=== PATIENT | male | born 1950 | race Caucasian/White ===

== ENCOUNTER 2016-07-20 05:07 | Observation (INO) | payer MEDICARE, OTHER ==
[~2016-07-20] VITALS: Ht 185.4 cm; Wt 82.3 kg
[~2016-07-20 05:07] MED LIST: /MOXI40TA OR; /MOXI40TA PO; ADVA115A INH; ADVAIR INH; ALB2.5NEB INH; ALBU17IN INH; ALBUTEROL NEBS INH; ASPI1TAB PEG; ASPI81TA83 PEG; AUGM500T34 PO; AUGM875T27 PEG; AUGM875T27 PO; BACT800T5 PEG; BACT800T5 PO; CEFT500T PEG; CEFT500T3 PO; CIPR500T89 PEG; CIPR750T2 PEG; COLA100C2 PO; COLA50CA3 PO; DELTASONE PO; FLAG500T GT; FLUC10TA OR; FLUC10TA PEG; JEVITY 1.5 CAL PEG; LEVA500T PEG; LEVA500T PO; LEVO500T PEG; LEVO500T PO; MEDR4PAK PO; O2; OXYGEN; PRED10PA PO; PRED10TA PEG; PRED10TA2 OR; PRED10TA2 PEG; PRED10TA2 PO; PRED20TAB PO; PRENATAL VITAMIN PEG; PRENTAB44 PEG; RANI15TA PEG; RANI75TA2 PEG; RANI75TA9 PEG; TWOCLIQ PEG; TYLE325T5 PEG; TYLE325T5 PO; VENTAER INH; VENTOLIN NEB NEB; VITA100T18 PEG; VITA100T92 PEG; prednisone
[2016-07-20] MEDS ORDERED: IPRATROPIUM 0.5MG/ALBUTEROL 2.5MG INH SOL UD 3ML (DUONEB)(J7620) As Ordered ONE (05:39)
[2016-07-20 06:19] LABS: ABG BASE EXCESS 4.4 (-2.0-2.0); ABG DEVICE NASAL CANN; ABG HCO3 30.5 MEQ/L (22.0-26.0); ABG PARTIAL PRESSURE CO2 50.7 mmHg (35.0-45.0); ABG PARTIAL PRESSURE O2 59.3 mmHg (75.0-100.0); ABG STANDARD HCO3 28.3 MEQ/L (22.0-26.0); ABG pH (ARTERIAL) 7.397 UNITS (7.350-7.450)
[2016-07-20 06:31] LABS: ANION GAP 8 MEQ/L (8-16); BLOOD UREA NITROGEN 22 MG/DL (7-18); CALCIUM LEVEL 9.1 MG/DL (8.8-10.2); CARBON DIOXIDE LEVEL 31 MEQ/L (21-32); CHLORIDE LEVEL 99 MEQ/L (98-107); CREATININE FOR GFR 0.99 MG/DL (0.70-1.30); GLOMERULAR FILTRATION RATE > 60.0 (>49); GLUCOSE, FASTING 219 MG/DL (80-110); POTASSIUM SERUM 4.3 MEQ/L (3.5-5.1); SODIUM LEVEL 138 MEQ/L (136-145)
[2016-07-20 06:32] LABS: MEAN CORPUSCULAR HEMOGLOBIN 34.8 pg (27.0-33.0); MEAN CORPUSCULAR HGB CONC 33.1 g/dl (32.0-36.5); MEAN CORPUSCULAR VOLUME 105.1 fl (80.0-96.0); PLATELET COUNT, AUTOMATED 213 k/mm3 (150-450); RED CELL DISTRIBUTION WIDTH 13.3 % (11.5-14.5); WHITE BLOOD COUNT 9.2 K/mm3 (4.0-10.0)
[2016-07-20 07:23] LABS: EOSINOPHILS 1 % (0-5)
[2016-07-20] MEDS ORDERED: LevoFLOXacin/DEXTROSE 750 MG/150 ML BAG (J1956) As Ordered ONE (08:33)
[2016-07-20] MEDS ORDERED: PRED10TA PEG (08:59)
--- NOTE | 2016-07-20 09:14 | REP ---
Chest x-ray: Two views. History: Shortness of breath. Comparison chest x-ray April 02, 2016. Findings: The lungs are hyperinflated. This is consistent with COPD. Heart is at the upper range of normal in size. There are clips in the upper abdomen. There is an infiltrate in the right lower lobe again noted. This is a little less prominent but otherwise similar to the findings on April 02, 2016. Question chronic persistent infiltrate versus recurrent pneumonia. There is a granulomatous calcification in the right base. There is a questionable nodule in the right mid lung zone. EKG monitoring electrodes and oxygen delivery tubing are seen. There are degenerative changes in the thoracic spine again noted. Impression: Chronic versus recurrent infiltrate right base. Questionable nodule right mid lung zone. Consider repeat CT scanning. CT scanning was most recently performed April 03, 2016. This showed bibasilar bronchiectasis and pulmonary opacification in both lower lobes. Signed by Jeff Gillespie MD 07/20/2016 10:23 A
--- NOTE | 2016-07-20 09:28 | ECGEPIP ---
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
--- NOTE | 2016-07-20 09:53 | REP ---
CT study of the chest without contrast: History: Cough. Comparison CT study is from April 03, 2016. Comparison is made with today's chest x-ray showing possible nodule in the right mid lung zone and recurrent versus persistent infiltrate in the right lower lobe. Findings: Overall, there is evidence of hyperinflation with flattening of the hemidiaphragms as before. The patient has a gastrostomy feeding tube. There is peripheral calcification pattern throughout the gallbladder consistent with porcelain gallbladder again noted unchanged. The upper abdominal structures are otherwise unremarkable. There is no visible pulmonary parenchymal mass lesion. No nodule is seen in the right middle lobe. No new infiltrate is noted. There is chronic-appearing bilateral lower lobe bronchiectasis. There is nearly complete collapse of the left lower lobe with air remaining in bronchiectatic branches. This is unchanged from the prior study. There are similar less prominent or less advanced changes in the right lower lobe with extensive bronchiectasis, some volume loss and retained endobronchial secretions. The parenchymal opacity pattern seen previously is similar perhaps slightly less prominent. No progressive change is seen. There is left apical and to a lesser extent right apical pleuroparenchymal scarring and emphysematous changes are seen. Impression: Chronic bronchiectasis and atelectatic changes in the lower lobes bilaterally, left greater than right. Evidence of COPD and overall hyperinflation. No new infiltrate seen. Signed by Jeff Gillespie MD 07/20/2016 10:23 A
[2016-07-20] MEDS ORDERED: ACETAMINOPHEN TAB 650MG DOSE (2X325MG) PEG PRN (12:15)
[2016-07-20] MEDS ORDERED: ONDANSETRON 4MG/2ML VIAL (J2405) IV PRN (12:15)
[2016-07-20 13:45] VITALS: BP 121/67
[2016-07-20] MEDS ORDERED: ALBUTEROL SULFATE 2.5 MG/0.5 ML INH NEB SOLN As Ordered ONE (15:02)
[2016-07-20] MEDS: ALBUTEROL SULFATE 2.5 MG/0.5 ML INH NEB SOLN NEB SCH ×2 (15:05→20:00)
[2016-07-20 16:00] VITALS: BP 113/69
--- NOTE | 2016-07-20 16:55 | EDDOCDS ---
Nurse's Notes [facility] Name: Jadon Grove Age: 66 yrs Sex: Male : 1950 Arrival Date: 07/20/2016 Time: 05:07 Bed Admit Hold Private MD: Diagnosis: Chronic obstructive pulmonary disease with (acute) exacerbation Presentation: 07/20 05:11 Presenting complaint: Patient states: difficulty breathing chills lower and upper cz abdominal pain for past week. Adult Sepsis Screening: The patient does not have new or worsening altered mentation. Patient's respiratory rate is less than 22. Systolic blood pressure is greater than 100. Patient has a qSOFA score of 0- Negative Sepsis Screen. Suicide/Homicide risk assessment- the patient denies having any suicidal and/or homicidal ideations and does not present with any other emotional, behavioral or mental health complaints. 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 Transition of care: patient was not received from another setting of care. 05:11 Acuity: LORIN Level 3 cz 05:11 Method Of Arrival: Wheelchair cz Triage Assessment: 05:16 General: Appears in no apparent distress. Pain: Location: back and abdomen. cz 08:05 Respiratory: Onset: The symptoms/episode began/occurred 1 week ago. jc4 Historical: - Allergies: Flagyl (Rash); - Home Meds: 1. Advair Diskus 115/21 mcg/dose Inhl dsdv 1 puff 2 times per day 2. albuterol sulfate 2.5 mg/0.5 mL Inhl nebu 3 times per day 3. albuterol sulfate 90 mcg/actuation Inhl aepb 2 puffs every 4 hours As needed 4. aspirin 81 mg Oral tab 1 tab once daily 5. Oxygen 3LNC 6. Vitamin Oral tab 1 tab once daily 7. ranitidine HCl 75 mg Oral tab 1 tab once daily 8. rotates Cipro and Augmentin every month 9. thiamine HCl 100 mg Oral tab 150 mg daily - PMHx: Cancer Right Tonsil; COPD; Pneumonia; - PSHx: oral surgery; right foot surgery; Cataract Surgery- Bilateral; - Social history: Smoking status: Patient states former smoker of tobacco. No barriers to communication noted, The patient speaks fluent Kazakh, Speaks appropriately for age. - Family history: No immediate family members are acutely ill. - : The pt / caregiver states he / she is not on anticoagulants. Home medication list is obtained from [employer] import data. - Exposure Risk Screening:: None identified. Screenin:02 Screening information is obtained from the patient. Fall risk: No risks identified. jc4 Assistance ADL's: requires no assistance with activities of daily living. Abuse/DV Screen: The patient / caregiver reports he/she is: not in a situation that causes fear, pain or injury. Nutritional screening: On TwoCal HN 1 can 4 times daily via Christian button. Advance Directives: Currently, there is a health care proxy, Caroline Grove, . There is no active DNR order. There is a living will, but a copy is not available at this time. There is an active Power of Fishery Biologist, Caroline Grove, . home support is adequate. Assessment: 05:20 General: Appears distressed, Behavior is appropriate for age, cooperative, pleasant. kmg1 Pain: Denies pain. Neurological: Level of Consciousness is awake, alert. EENT: No deficits noted. Cardiovascular: Rhythm is sinus tachycardia No ectopy. Respiratory: Airway is patent Respiratory effort is labored, Respiratory pattern is regular, symmetrical, Breath sounds are coarse Breath sounds with crackles Breath sounds with rhonchi. GI: No deficits noted. 06:17 General: Appears in no apparent distress, comfortable, Behavior is appropriate for age, kmg1 cooperative, pleasant. Pain: Denies pain. Respiratory: pt now receiving nebs. 08:09 General: Appears in no apparent distress, comfortable, Behavior is cooperative, jc4 pleasant. Pain: Denies pain. Neurological: Level of Consciousness is awake, alert, Oriented to person, place, time. Cardiovascular: Rhythm is sinus tachycardia No ectopy. Respiratory: Airway is patent Respiratory effort is even, unlabored, Respiratory pattern is regular, symmetrical, maintained on 4 liters nasal canula Breath sounds with rhonchi bilaterally. Respiratory: Reports that breathing is improved since time of arrival. GI: Abdomen is non- distended other Christian button in place to left upper abdomen Bowel sounds present X 4 quads. Derm: Skin is pink, warm & dry. 09:44 General: Pt resting on stretcher. No distress noted at this time. Color pink, skin warm jc4 and dry. Respirations easy and full. Maintained on 4 liters nasal canula. Warm blankets given. IV antibiotics infusing well, site clear. at bedside. 11:00 General: Dr. Moe in to examine patient. jc4 12:00 General: Pt resting on stretcher. No distress noted at this time. at bedside. jc4 Denies complaint at this time. 12:48 General: Pt sitting up on stretcher, watching television. jc4 13:35 General: Appears in no apparent distress, Behavior is cooperative, pleasant. Pain: jc4 Denies pain. Neurological: Level of Consciousness is awake, alert, Oriented to person, place, time. Respiratory: Airway is patent Respiratory effort is even, unlabored, Respiratory pattern is regular, symmetrical, maintained on 4 liters nasal canula. Derm: Skin is pink, warm & dry. Vital Signs: 05:16 BP 123 / 68; Pulse 115; Resp 20; Temp 97.6; Pulse Ox 72% on 3 lpm NC; Weight 73.48 kg; cz Height 6 ft. 1 in. (185.42 cm); 05:53 BP 132 / 76 (auto/); jc4 06:08 BP 121 / 71 (auto/); jc4 06:23 Pulse 102 MON; Pulse Ox 93% ; jc4 06:23 BP 117 / 68 (auto/); jc4 06:36 Pulse 102 MON; Pulse Ox 92% ; jc4 06:38 BP 110 / 59 (auto/); jc4 06:53 BP 137 / 71 (auto/); jc4 06:53 Pulse 104 MON; Pulse Ox 95% ; jc4 07:04 Pulse 110 MON; Pulse Ox 92% ; jc4 07:08 BP 126 / 70 (auto/); jc4 07:23 BP 117 / 59 (auto/); jc4 07:38 BP 108 / 60 (auto/); jc4 07:38 Pulse 102 MON; Pulse Ox 92% ; jc4 07:52 Pulse 98 MON; Pulse Ox 92% ; jc4 07:53 BP 119 / 66 (auto/); jc4 08:01 BP 119 / 66; Pulse 98; Resp 22; Temp 98.8(TE); Pulse Ox 93% on 4 lpm NC; Pain 0/10; jc4 08:05 Pulse 98 MON; Pulse Ox 92% ; jc4 08:08 BP 132 / 68 (auto/); jc4 08:23 BP 126 / 69 (auto/); jc4 08:24 Pulse 94 MON; Pulse Ox 91% ; jc4 08:38 BP 123 / 67 (auto/); jc4 08:38 Pulse 94 MON; Pulse Ox 93% ; jc4 08:53 BP 123 / 68 (auto/); jc4 08:53 Pulse 96 MON; Pulse Ox 91% ; jc4 09:08 BP 105 / 56 (auto/); jc4 09:09 Pulse 94 MON; Pulse Ox 94% ; jc4 09:22 Pulse 96 MON; Pulse Ox 95% ; jc4 09:23 BP 124 / 66 (auto/); jc4 09:38 BP 111 / 59 (auto/); jc4 09:38 Pulse 94 MON; Pulse Ox 94% ; jc4 09:57 BP 121 / 63 (auto/); jc4 09:57 Pulse 98 MON; Pulse Ox 93% ; jc4 10:08 BP 117 / 60 (auto/); jc4 10:08 Pulse 92 MON; Pulse Ox 94% ; jc4 10:21 Pulse 90 MON; Pulse Ox 94% ; jc4 10:23 BP 113 / 59 (auto/); jc4 10:38 BP 108 / 66 (auto/); jc4 10:38 Pulse 88 MON; Pulse Ox 92% ; jc4 10:53 BP 133 / 59 (auto/); jc4 10:53 Pulse 88 MON; Pulse Ox 94% ; jc4 11:08 BP 122 / 64 (auto/); jc4 11:08 Pulse 90 MON; Pulse Ox 92% ; jc4 11:21 Pulse 86 MON; Pulse Ox 92% ; jc4 11:23 BP 107 / 60 (auto/); jc4 11:37 Pulse 86 MON; Pulse Ox 92% ; jc4 11:38 BP 107 / 63 (auto/); jc4 11:53 BP 116 / 66 (auto/); jc4 11:53 Pulse 88 MON; Pulse Ox 92% ; jc4 12:07 Pulse 86 MON; Pulse Ox 93% ; jc4 12:08 BP 118 / 67 (auto/); jc4 12:11 Pulse 86 MON; Pulse Ox 93% ; jc4 12:12 BP 108 / 65 (auto/); jc4 12:14 BP 108 / 65; Pulse 88; Resp 22; Temp 98.7(TE); Pulse Ox 93% on 4 lpm NC; Pain 0/10; sew 12:23 Pulse 88 MON; Pulse Ox 92% ; jc4 12:23 BP 113 / 67 (auto/); jc4 12:38 BP 115 / 69 (auto/); jc4 12:38 Pulse 88 MON; Pulse Ox 92% ; jc4 12:52 Pulse 88 MON; Pulse Ox 93% ; jc4 12:53 BP 124 / 68 (auto/); jc4 13:08 BP 126 / 67 (auto/); jc4 13:09 Pulse 88 MON; Pulse Ox 94% ; jc4 05:16 Body Mass Index 21.37 (73.48 kg, 185.42 cm) cz Vitals: 05:16 Log In Time: July 20, 2016 at 05:07. cz 05:20 Refer to monitor trend for complete vital signs trends. [facility] ED Course: 05:09 Patient visited by Chalree Mckeon. gjb 05:09 Patient moved to Waiting gjb 05:13 Triage Initiated cz 05:18 Patient moved to 14 cz 05:20 The patient / caregiver is instructed regarding the plan of care and ED course. Cardiac kmg1 monitor on. Pulse ox on. NIBP on. 05:20 O2 via nasal cannula \T\ 4L/min. kmg1 05:27 Tevin Sanderson DO is Attending Physician. mm11 05:27 Patient visited by Tevin Sanderson DO. mm11 05:32 Patient visited by Tevin Sanderson DO. mm11 05:44 Pt greeted and oriented to ED. Patient advised of names of staff involved in care, [facility] location of call smith, wait times and NPO status. Accompanied by Caregiver, Patient has correct armband on for positive identification. Placed in gown. Bed in low position. Call light in reach. Side rails up X2. 05:44 EKG done. (by ED staff). Reviewed by Tevin Sanderson DO. jmv 05:46 Patient visited by Nirav Luu PCA. jmv 06:01 -Blood Culture Sent. kmg1 06:01 B-Type Natiuretic Peptide Sent. kmg1 06:01 Basic Metabolic Profile Sent. kmg1 06:01 CBC with Diff Sent. kmg1 06:02 Patient visited by Rika Hyde RN. kmg1 06:02 Inserted saline lock: 20 gauge in right forearm. Labs drawn. (by ED staff). Sent per km order to lab. 06:18 -Arterial Blood Gas Sent. nk1 06:20 Patient visited by Rika Hyde RN. kmg1 06:28 BLOOD CULTURES Sent. kmg1 06:45 DIFFERENTIAL NO CHARGE Sent. kmg1 07:24 Patient visited by Lavern De La Rosa PCA. ct3 08:09 Patient visited by Nadira Nova, LISSA. jc4 08:30 Attending Physician role handed off by Tevin Sanderson DO ml 08:30 Mukund Iglesias MD is Attending Physician. ml 08:52 Patient visited by Nadira Nova RN. jc4 09:17 Chest, 2 View (pa\E\lat) Returned. EDMS 09:29 [facility] Payment Agreement was scanned into [employer] and attached to record. lg 09:43 EKG-ADULT Returned. EDMS 09:44 -Influenza A&B Rapid Antigen - Nose Sent. jc4 09:46 Patient visited by Nadira Nova RN. jc4 09:46 Edna Moe is Hospitalizing Provider. ml 10:12 CT Chest Without Contrast Returned. EDMS 10:36 T-Sheet-- Draft Copy was scanned into [employer] and attached to record. seh 12:15 Patient visited by Miranda Negrete. sew 12:47 Patient visited by Nadira Nova RN. jc4 13:30 Patient moved to Admit Hold kpj 13:33 Patient moved to 21 kpj 13:33 Patient moved to Admit Hold kpj 16:52 No procedures done that require assistance. pml Administered Medications: 06:18 Drug: Albuterol-Ipratropium 1 neb [ipratropium-albuterol 0.5 mg-3 mg(2.5 mg base)/3 mL nk1 nebulization soln (1 neb)] Route: Nebulizer; 06:45 Drug: Albuterol-Ipratropium 1 neb [ipratropium-albuterol 0.5 mg-3 mg(2.5 mg base)/3 mL km nebulization soln (1 neb)] Route: Nebulizer; 06:46 Follow up: Response: Nebulizer completed nk1 06:52 Drug: Albuterol-Ipratropium 1 neb [ipratropium-albuterol 0.5 mg-3 mg(2.5 mg base)/3 mL lf2 nebulization soln (1 neb)] Route: Nebulizer; 08:55 Drug: levofloxacin 750 mg [levofloxacin 750 mg/150 mL in 5 % dextrose intravenous jc4 piggyback] Route: IVPB; Infused Over: 90 mins; Site: right wrist; 10:23 Follow up: IV Status: Completed infusion; IV Intake: 150ml jc4 Intake: 10:23 IV: 150.00ml; Total: 150.00ml. jc4 RT: 06:18 ABG's drawn from left radial artery pressure held for 5 minutes no bleeding noted nk1 pressure bandage applied specimen sent pt. tolerated well. Initial Med Neb Given as ordered Patient was instructed and evaluated on procedure Patient tolerated procedure well without adverse effect. Respiratory: Respiratory effort is unlabored, Respiratory pattern is regular Breath sounds are diminished bilaterally. 06:18 Respiratory: Breath sounds are coarse bilaterally. Breath sounds with rhonchi nk1 bilaterally. Breath sounds are diminished. 06:46 Subsequent Med Neb Given as ordered Patient tolerated procedure well without adverse nk1 effect. 06:47 Respiratory: Breath sounds are coarse Breath sounds with rhonchi bilaterally. nk1 06:52 Subsequent Med Neb Given as ordered Patient tolerated procedure well without adverse lf2 effect. Respiratory: Breath sounds are coarse bilaterally. Breath sounds are diminished bilaterally. Order Results: Lab Order: -Arterial Blood Gas; SPEC'M 07/20/16 06:09 Test: ABG pH (ARTERIAL); Value: 7.397; Range: 7.350-7.450; Units: UNITS; Status: F Test: ABG PARTIAL PRESSURE CO2; Value: 50.7; Range: 35.0-45.0; Abnormal: Above high normal; Units: mmHg; Status: F Test: ABG PARTIAL PRESSURE O2; Value: 59.3; Range: 75.0-100.0; Abnormal: Below low normal; Units: mmHg; Status: F Test: ABG TOTAL CO2; Value: 32.0; Range: 23.0-31.0; Abnormal: Above high normal; Units: MEQ/L; Status: F Test: ABG HCO3; Value: 30.5; Range: 22.0-26.0; Abnormal: Above high normal; Units: MEQ/L; Status: F Test: ABG BASE EXCESS; Value: 4.4; Range: -2.0-2.0; Abnormal: Above high normal; Status: F Test: ABG STANDARD HCO3; Value: 28.3; Range: 22.0-26.0; Abnormal: Above high normal; Units: MEQ/L; Status: F Test: ABG O2 SATURATION; Value: 90.7; Range: 95.0-99.0; Abnormal: Below low normal; Units: %; Status: F Test: ABG DEVICE; Value: NASAL JUDSON; Status: F Lab Order: B-Type Natiuretic Peptide; SPEC'07/20/16 06:00 Test: BRAIN NATRIURETIC PEPTIDE; Value: 19.6; Range: <100; Units: PG/ML; Status: F Lab Order: Basic Metabolic Profile; SPEC07/20/16 06:00 Test: GLUCOSE, FASTING; Value: 219; Range: 80-110; Abnormal: Above high normal; Units: MG/DL; Status: F Test: BLOOD UREA NITROGEN; Value: 22; Range: 7-18; Abnormal: Above high normal; Units: MG/DL; Status: F Test: CREATININE FOR GFR; Value: 0.99; Range: 0.70-1.30; Units: MG/DL; Status: F Test: GLOMERULAR FILTRATION RATE; Value: > 60.0; Range: >49; Status: F Test: SODIUM LEVEL; Value: 138; Range: 136-145; Units: MEQ/L; Status: F Test: POTASSIUM SERUM; Value: 4.3; Range: 3.5-5.1; Units: MEQ/L; Status: F Test: CHLORIDE LEVEL; Value: 99; Range: 98-107; Units: MEQ/L; Status: F Test: CARBON DIOXIDE LEVEL; Value: 31; Range: 21-32; Units: MEQ/L; Status: F Test: ANION GAP; Value: 8; Range: 8-16; Units: MEQ/L; Status: F Test: CALCIUM LEVEL; Value: 9.1; Range: 8.8-10.2; Units: MG/DL; Status: F Test Note: ; Units are mL/min/1.73 m2 Chronic Kidney Disease Staging per NKF: Stage I & II GFR >=60 Normal to Mildly Decreased Stage III GFR 30-59 Moderately Decreased Stage IV GFR 15-29 Severely Decreased Stage V GFR <15 Very Little GFR Left ESRD GFR <15 on BOOKKEEPER RECEPTIONIST Lab Order: CBC with Diff; SPEC'M 07/20/16 06:00 Test: WHITE BLOOD COUNT; Value: 9.2; Range: 4.0-10.0; Units: K/mm3; Status: F Test: RED BLOOD COUNT; Value: 4.19; Range: 4.30-6.10; Abnormal: Below low normal; Units: M/mm3; Status: F Test: HEMOGLOBIN; Value: 14.6; Range: 14.0-18.0; Units: g/dl; Status: F Test: HEMATOCRIT; Value: 44.1; Range: 42.0-52.0; Units: %; Status: F Test: MEAN CORPUSCULAR VOLUME; Value: 105.1; Range: 80.0-96.0; Abnormal: Above high normal; Units: fl; Status: F Test: MEAN CORPUSCULAR HEMOGLOBIN; Value: 34.8; Range: 27.0-33.0; Abnormal: Above high normal; Units: pg; Status: F Test: MEAN CORPUSCULAR HGB CONC; Value: 33.1; Range: 32.0-36.5; Units: g/dl; Status: F Test: RED CELL DISTRIBUTION WIDTH; Value: 13.3; Range: 11.5-14.5; Units: %; Status: F Test: PLATELET COUNT, AUTOMATED; Value: 213; Range: 150-450; Units: k/mm3; Status: F Test: NEUTROPHILS; Value: 91; Range: 35-75; Abnormal: Above high normal; Units: %; Status: F Test: LYMPHOCYTES; Value: 4; Range: 16-52; Abnormal: Below low normal; Units: %; Status: F Test: MONOCYTES; Value: 4; Range: 0-8; Units: %; Status: F Test: EOSINOPHILS; Value: 1; Range: 0-5; Units: %; Status: F Test: MACROCYTOSIS; Value: 1+; Status: F Lab Order: PLATELET ESTIMATE; SPEC'M 07/20/16 06:00 Test: PLATELET ESTIMATE; Value: NORMAL; Range: NORMAL; Status: F Lab Order: -Influenza A&B Rapid Antigen - Nose; SPEC'M 07/20/16 09:42 Test: INFLUENZA A RAPID SCR by ICA; Value: INFLUENZA A RESULTS NEGATIVE; Status: F Test: INFLUENZA A RAPID SCR by ICA; Value: Comments:; Status: F Test: INFLUENZA B RAPID SCR by ICA; Value: INFLUENZA B RESULTS NEGATIVE; Status: F Test Note: ; The Influenza test is a direct rapid immunoassay for the qualitative detection of Influenza viral antigen. Cell culture (Viral Culture) testing should be considered to confirm NEGATIVE results and to assist in detecting other viruses that can provide similar clinical symptoms. Please contact the lab within 24 hours ([phone]) if confirmatory testing is desired. Radiology Order: Chest, 2 View (pa\E\lat) Test: Chest, 2 View (pa\E\lat) REASON FOR EXAMINATION: Shortness of Breath; Chest x-ray: Two views.; ; History: Shortness of breath.; ; Comparison chest x-ray April 02, 2016.; ; Findings: The lungs are hyperinflated. This is consistent with COPD. Heart is; at the upper range of normal in size. There are clips in the upper abdomen.; There is an infiltrate in the right lower lobe again noted. This is a little; less prominent but otherwise similar to the findings on April 02, 2016.; Question chronic persistent infiltrate versus recurrent pneumonia. There is a; granulomatous calcification in the right base. There is a questionable nodule in; the right mid lung zone. EKG monitoring electrodes and oxygen delivery tubing; are seen. There are degenerative changes in the thoracic spine again noted.; ; Impression:; ; Chronic versus recurrent infiltrate right base. Questionable nodule right mid; lung zone. Consider repeat CT scanning. CT scanning was most recently performed; April 03, 2016. 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; : 1950 Requested By: TEVIN Gloria; Order Number: [id number] Ricky MD: Scott Earl; Measurements; Intervals [place]; Rate: 105 P: 81; [place]: 139 QRS: 66; QRSD: 79 T: 87; QT: 315; QTc: 417; Interpretive Statements; SINUS TACHYCARDIA WITH OCCASIONAL VENTRICULAR PREMATURE COMPLEXES; NONSPECIFIC ST T-WAVE ABNORMALITY; ; ; Electronically Signed On 07-20-2016 9:27:55 EST by Scott Earl; Radiology Order: CT Chest Without Contrast Test: CT Chest Without Contrast REASON FOR EXAMINATION: Cough;Shortness of Breath; CT study of the chest without contrast:; ; History: Cough.; ; Comparison CT study is from April 03, 2016. Comparison is made with today's; chest x-ray showing possible nodule in the right mid lung zone and recurrent; versus persistent infiltrate in the right lower lobe.; ; Findings: Overall, there is evidence of hyperinflation with flattening of the; hemidiaphragms as before. The patient has a gastrostomy feeding tube. There is; peripheral calcification pattern throughout the gallbladder consistent with; porcelain gallbladder again noted unchanged. The upper abdominal structures are; otherwise unremarkable.; ; There is no visible pulmonary parenchymal mass lesion. No nodule is seen in the; right middle lobe. No new infiltrate is noted. There is chronic-appearing; bilateral lower lobe bronchiectasis. There is nearly complete collapse of the; left lower lobe with air remaining in bronchiectatic branches. This is unchanged; from the prior study. There are similar less prominent or less advanced changes; in the right lower lobe with extensive bronchiectasis, some volume loss and; retained endobronchial secretions. The parenchymal opacity pattern seen; previously is similar perhaps slightly less prominent. No progressive change is; seen. There is left apical and to a lesser extent right apical pleuroparenchymal; scarring and emphysematous changes are seen.; ; Impression:; ; Chronic bronchiectasis and atelectatic changes in the lower lobes bilaterally,; left greater than right. Evidence of COPD and overall hyperinflation. No new; infiltrate seen.; ; ; Signed by; Jeff Gillespie MD 07/20/2016 10:23 A; Outcome: 09:47 Decision to Hospitalize by Provider. ml 13:46 Admission hand-off: Other: Report to Angeles Posey RN [place] nurse . jc4 16:52 Discharge Assessment: Patient awake, alert and oriented x 3. No cognitive and/or pml functional deficits noted. Patient verbalized understanding of disposition instructions. patient administered narcotics - no. The following High Risk Discharge criteria are identified: None. Admitted to Med/Surg accompanied by tech, via stretcher, with chart. Condition: good Condition: stable. CT Study completed. Property sent home with patient. 16:53 Patient left the ED. pml Signatures: Dispatcher [employer] EDNC Mukund Iglesias MD MD Rika Hyde, RN RN kmg1 Jessica Guthrie RN RN Evangelist Smith, LISSA RN cz Rowena Olivas, Reg Reg lg Nikole Strong,RT RT nk1 Tevin Sanderson, DO DO mm11 Nadira Nova RN RN jc4 Lavern De La Rosa, NEONATAL SURGEON NEONATAL SURGEON ct3 Liudmila Cabello RN RN pml Miranda Negrete Gabriela gjb Frederick, Lisa,RT RT lf2 Miranda Gutierrez Jose, NEONATAL SURGEON NEONATAL SURGEON jmv Corrections: (The following items were deleted from the chart) 08:14 05:16 Allergies: No known drug Allergies; cz jc4 16:53 16:52 No special radiology studies were completed pml pml MTDD
--- NOTE | 2016-07-20 16:55 | EDDOCDS ---
Physician Documentation [facility] Name: Jadon Grove Age: 66 yrs Sex: Male : 1950 Arrival Date: 07/20/2016 Time: 05:07 Bed Admit Hold Private MD: Disposition: 07/20/16 09:47 Hospitalization ordered by Edna Moe for Inpatient Admission. Preliminary diagnosis is Chronic obstructive pulmonary disease with (acute) exacerbation. - Bed requested for 4 [place]. - Status is Inpatient Admission. pml - Condition is Stable. - Problem is new. - Symptoms are unchanged. Historical: - Allergies: Flagyl (Rash); - Home Meds: 1. Advair Diskus 115/21 mcg/dose Inhl dsdv 1 puff 2 times per day 2. albuterol sulfate 2.5 mg/0.5 mL Inhl nebu 3 times per day 3. albuterol sulfate 90 mcg/actuation Inhl aepb 2 puffs every 4 hours As needed 4. aspirin 81 mg Oral tab 1 tab once daily 5. Oxygen 3LNC 6. Vitamin Oral tab 1 tab once daily 7. ranitidine HCl 75 mg Oral tab 1 tab once daily 8. rotates Cipro and Augmentin every month 9. thiamine HCl 100 mg Oral tab 150 mg daily - PMHx: Cancer Right Tonsil; COPD; Pneumonia; - PSHx: oral surgery; right foot surgery; Cataract Surgery- Bilateral; - Social history: Smoking status: Patient states former smoker of tobacco. No barriers to communication noted, The patient speaks fluent [place]ijani, Speaks appropriately for age. - Family history: No immediate family members are acutely ill. - : The pt / caregiver states he / she is not on anticoagulants. Home medication list is obtained from [employer] import data. - Exposure Risk Screening:: None identified. Vital Signs: 07/20 05:16 BP 123 / 68; Pulse 115; Resp 20; Temp 97.6; Pulse Ox 72% on 3 lpm NC; Weight 73.48 kg / cz 162 lbs; Height 6 ft. 1 in. (185.42 cm); 05:53 BP 132 / 76 (auto/); jc4 06:08 BP 121 / 71 (auto/); jc4 06:23 Pulse 102 MON; Pulse Ox 93% ; jc4 06:23 BP 117 / 68 (auto/); jc4 06:36 Pulse 102 MON; Pulse Ox 92% ; jc4 06:38 BP 110 / 59 (auto/); jc4 06:53 BP 137 / 71 (auto/); jc4 06:53 Pulse 104 MON; Pulse Ox 95% ; jc4 07:04 Pulse 110 MON; Pulse Ox 92% ; jc4 07:08 BP 126 / 70 (auto/); jc4 07:23 BP 117 / 59 (auto/); jc4 07:38 BP 108 / 60 (auto/); jc4 07:38 Pulse 102 MON; Pulse Ox 92% ; jc4 07:52 Pulse 98 MON; Pulse Ox 92% ; jc4 07:53 BP 119 / 66 (auto/); jc4 08:01 BP 119 / 66; Pulse 98; Resp 22; Temp 98.8(TE); Pulse Ox 93% on 4 lpm NC; Pain 0/10; jc4 08:05 Pulse 98 MON; Pulse Ox 92% ; jc4 08:08 BP 132 / 68 (auto/); jc4 08:23 BP 126 / 69 (auto/); jc4 08:24 Pulse 94 MON; Pulse Ox 91% ; jc4 08:38 BP 123 / 67 (auto/); jc4 08:38 Pulse 94 MON; Pulse Ox 93% ; jc4 08:53 BP 123 / 68 (auto/); jc4 08:53 Pulse 96 MON; Pulse Ox 91% ; jc4 09:08 BP 105 / 56 (auto/); jc4 09:09 Pulse 94 MON; Pulse Ox 94% ; jc4 09:22 Pulse 96 MON; Pulse Ox 95% ; jc4 09:23 BP 124 / 66 (auto/); jc4 09:38 BP 111 / 59 (auto/); jc4 09:38 Pulse 94 MON; Pulse Ox 94% ; jc4 09:57 BP 121 / 63 (auto/); jc4 09:57 Pulse 98 MON; Pulse Ox 93% ; jc4 10:08 BP 117 / 60 (auto/); jc4 10:08 Pulse 92 MON; Pulse Ox 94% ; jc4 10:21 Pulse 90 MON; Pulse Ox 94% ; jc4 10:23 BP 113 / 59 (auto/); jc4 10:38 BP 108 / 66 (auto/); jc4 10:38 Pulse 88 MON; Pulse Ox 92% ; jc4 10:53 BP 133 / 59 (auto/); jc4 10:53 Pulse 88 MON; Pulse Ox 94% ; jc4 11:08 BP 122 / 64 (auto/); jc4 11:08 Pulse 90 MON; Pulse Ox 92% ; jc4 11:21 Pulse 86 MON; Pulse Ox 92% ; jc4 11:23 BP 107 / 60 (auto/); jc4 11:37 Pulse 86 MON; Pulse Ox 92% ; jc4 11:38 BP 107 / 63 (auto/); jc4 11:53 BP 116 / 66 (auto/); jc4 11:53 Pulse 88 MON; Pulse Ox 92% ; jc4 12:07 Pulse 86 MON; Pulse Ox 93% ; jc4 12:08 BP 118 / 67 (auto/); jc4 12:11 Pulse 86 MON; Pulse Ox 93% ; jc4 12:12 BP 108 / 65 (auto/); jc4 12:14 BP 108 / 65; Pulse 88; Resp 22; Temp 98.7(TE); Pulse Ox 93% on 4 lpm NC; Pain 0/10; sew 12:23 Pulse 88 MON; Pulse Ox 92% ; jc4 12:23 BP 113 / 67 (auto/); jc4 12:38 BP 115 / 69 (auto/); jc4 12:38 Pulse 88 MON; Pulse Ox 92% ; jc4 12:52 Pulse 88 MON; Pulse Ox 93% ; jc4 12:53 BP 124 / 68 (auto/); jc4 13:08 BP 126 / 67 (auto/); jc4 13:09 Pulse 88 MON; Pulse Ox 94% ; jc4 05:16 Body Mass Index 21.37 (73.48 kg, 185.42 cm) cz MDM: 05:33 -Blood Culture (Adults Only), peripheral from different site, or from device/port/PICC mm11 etc. if present ordered. 05:33 Technician/Pulse Ox/q 15 min VS ordered. mm11 05:33 IV Saline Lock ordered. mm11 05:33 Oxygen at 4L/Min NC or Home dosage ordered. mm11 05:33 Rhythm Strip to chart ordered. mm11 05:33 Albuterol-Ipratropium 1 neb Nebulizer every 20 minutes x3 ordered. mm11 05:33 Call Respiratory ordered. mm11 05:34 -Arterial Blood Gas Ordered. EDMS 05:34 -Blood Culture Ordered. EDMS 05:34 B-Type Natiuretic Peptide Ordered. EDMS 05:34 Basic Metabolic Profile Ordered. EDMS 05:34 CBC with Diff Ordered. EDMS 05:34 Chest, 2 View (pa\E\lat) Ordered. EDMS 05:35 ECG WITH READING ER PHYS+CARDIAG ordered. EDMS 05:35 -Blood Culture (Adults Only), peripheral from different site, or from device/port/PICC ml3 etc. if present complete. 05:37 BLOOD CULTURES Ordered. EDMS 05:40 Call Respiratory complete. ml3 06:33 DIFFERENTIAL NO CHARGE Ordered. EDMS 06:33 PLATELET ESTIMATE Ordered. EDMS 07:02 -Arterial Blood Gas Reviewed. mm11 07:02 Basic Metabolic Profile Reviewed. mm11 07:02 CBC with Diff Reviewed. mm11 07:02 B-Type Natiuretic Peptide Reviewed. mm11 07:30 CBC with Diff Reviewed. mm11 07:30 PLATELET ESTIMATE Reviewed. mm11 07:53 Financial registration complete. lg 08:21 levofloxacin 750 mg IVPB once over 90 mins ordered. mm11 08:22 CT Chest Without Contrast Ordered. EDMS 08:23 BED REQUEST+ADM ordered. EDMS 09:24 -Influenza A&B Rapid Antigen - Nose Ordered. EDMS 09:29 [facility] [place] [facility] Payment Agreement was scanned into [employer] and attached to record. lg 10:36 T-Sheet-- Draft Copy was scanned into [employer] and attached to record. se 12:10 Admission / Observation Status ordered. EDMS 12:11 NPO DIET ordered. EDMS Administered Medications: 06:18 Drug: Albuterol-Ipratropium 1 neb [ipratropium-albuterol 0.5 mg-3 mg(2.5 mg base)/3 mL nk1 nebulization soln (1 neb)] Route: Nebulizer; 06:45 Drug: Albuterol-Ipratropium 1 neb [ipratropium-albuterol 0.5 mg-3 mg(2.5 mg base)/3 mL kmg1 nebulization soln (1 neb)] Route: Nebulizer; 06:46 Follow up: Response: Nebulizer completed nk1 06:52 Drug: Albuterol-Ipratropium 1 neb [ipratropium-albuterol 0.5 mg-3 mg(2.5 mg base)/3 mL lf2 nebulization soln (1 neb)] Route: Nebulizer; 08:55 Drug: levofloxacin 750 mg [levofloxacin 750 mg/150 mL in 5 % dextrose intravenous jc4 piggyback] Route: IVPB; Infused Over: 90 mins; Site: right wrist; 10:23 Follow up: IV Status: Completed infusion; IV Intake: 150ml jc4 Signatures: Dispatcher [employer] EDMukund Chowdhury MD MD ml Rika Hyde, RN RN kmg1 Evangelist Gonzalez RN RN cz Rowena Olivas, Reg Reg lg Analisa, Ayadbeth, Social Service Agency Director Unit ml3 Ricardo Sanderson, DO mm11 Colleen Young, SNOW RANGER SNOW RANGER ar3 Nadira Nova RN RN jc4 Liudmila Cabello RN RN pml Hoffert, Nikole Godinez RT nk1 Katina Zarco RT lf2 The chart was reviewed and I authenticate all verbal orders and agree with the evaluation and treatment provided.Corrections: (The following items were deleted from the chart) 08:14 05:16 Allergies: No known drug Allergies; cz jc4 Attachments: 09:29 [facility] Payment Agreement lg 10:36 T-Sheet-- Draft Copy [facility] MTDD
[2016-07-20 17:13] VITALS: BP 163/86
[2016-07-20] MEDS: ADVAIR HFA 115/21 INHALER INH SCH (19:58)
[2016-07-20] MEDS: FAMOTIDINE 20 MG TAB PEG SCH (20:39)
[2016-07-20 22:00] VITALS: BP 162/96
[2016-07-20 22:12] VITALS: BP 136/64
[2016-07-20] MEDS ORDERED: ACETAMINOPHEN TAB 650MG DOSE (2X325MG) PO PRN (22:45)
[2016-07-21] MEDS: ALBUTEROL SULFATE 2.5 MG/0.5 ML INH NEB SOLN NEB SCH ×4 (01:42→19:56)
[2016-07-21 06:00] VITALS: BP 120/70
[2016-07-21 06:37] LABS: BASO % 0.4 % (0.0-1.0); EOS # 0.4 K/mm3 (0.0-0.50); EOS % 5.8 % (0.0-3.0); LARGE UNSTAINED CELL # 0.3 K/mm3 (0.0-0.4); LARGE UNSTAINED CELL % 4.1 % (0.0-4.0); LYMPH # 0.9 K/mm3 (1.5-4.5); LYMPH % 13.1 % (24.0-44.0); MEAN CORPUSCULAR HEMOGLOBIN 34.2 pg (27.0-33.0); MEAN CORPUSCULAR HGB CONC 33.2 g/dl (32.0-36.5); MONO # 0.6 K/mm3 (0.0-0.8); MONO % 9.1 % (0.0-5.0); NEUTROPHILS # 4.4 K/mm3 (1.8-7.7); NEUTROPHILS % 67.5 % (36.0-66.0); PLATELET COUNT, AUTOMATED 194 k/mm3 (150-450); RED CELL DISTRIBUTION WIDTH 13.3 % (11.5-14.5); WHITE BLOOD COUNT 6.5 K/mm3 (4.0-10.0)
[2016-07-21 06:50] LABS: ANION GAP 7 MEQ/L (8-16); BLOOD UREA NITROGEN 18 MG/DL (7-18); CALCIUM LEVEL 9.1 MG/DL (8.8-10.2); CARBON DIOXIDE LEVEL 33 MEQ/L (21-32); CHLORIDE LEVEL 99 MEQ/L (98-107); CREATININE FOR GFR 0.79 MG/DL (0.70-1.30); GLOMERULAR FILTRATION RATE > 60.0 (>49); GLUCOSE, FASTING 83 MG/DL (80-110); POTASSIUM SERUM 4.1 MEQ/L (3.5-5.1); SODIUM LEVEL 139 MEQ/L (136-145)
[2016-07-21] MEDS: ADVAIR HFA 115/21 INHALER INH SCH ×2 (07:58→19:53)
[2016-07-21] MEDS: predniSONE 20 MG TAB PEG SCH (10:02)
[2016-07-21] MEDS: ASPIRIN 81 MG ENTERIC TAB PEG SCH (10:03)
[2016-07-21] MEDS: THIAMINE 100 MG TAB PEG SCH (10:03)
[2016-07-21] MEDS: ENOXAPARIN 40 MG/0.4 ML SYRINGE (J1650) SC SCH (10:04)
[2016-07-21] MEDS: PRENATAL VITAMIN TAB PEG SCH (10:08)
--- NOTE | 2016-07-21 11:56 | HPE ---
DATE OF ADMISSION: 07/20/2016 PRIMARY CARE PROVIDER: Dr. Azar at [place]. MONEY ROOM TELLER: Dr. Nance CHIEF COMPLAINT: Increased shortness of breath for one week, along with chills and abdominal pain. PAST MEDICAL HISTORY: 1. Chronic obstructive pulmonary disease (COPD) with bronchiectasis on chronic suppression antibiotic therapy. 2. Chronic respiratory failure on 3 liters nasal cannula oxygen. 3. Interstitial pulmonary fibrosis. 4. Lumbar stenosis. 5. Gastroesophageal reflux disease (GERD). 6. History of recurrent aspiration and now has a percutaneous endoscopic gastrostomy (PEG) tube in place. 7. History of tonsillar cancer, status post surgery and radiation in 2003. 8. History of jaw necrosis and jaw reconstruction in 2008. 9. History of recurrent pneumonia. HISTORY OF PRESENT ILLNESS: This is a 66-year-old male with COPD, bronchiectasis, interstitial pulmonary fibrosis and chronic hypoxic respiratory failure on 3 liters of home oxygen, presented to the emergency room today with gradually worsening shortness of breath for the past 1 week and this morning it became very severe and even after several nebulizer treatments and increasing his oxygen level to a maximum at home, he is still persistently short of breath and so was brought to the emergency room. In the emergency room, the patient got some more nebulizer treatments and oxygen through a mask and that helped his oxygenation and improved his symptoms. The patient is on chronic antibiotic suppression therapy for bronchiectasis. The patient just finished a course of Bactrim yesterday. In the emergency department, the patient had a CT scan of the chest done, which showed chronic bronchiectasis and atelectatic changes in the bilateral lower lobes, left greater than right. Evidence of COPD and hyperinflation; however, no new infiltrates were seen. The patient did receive one dose of levofloxacin 750 mg in the emergency department; however, further antibiotics are discontinued and the patient was admitted for COPD exacerbation. PAST SURGICAL HISTORY: 1. PEG tube insertion. 2. Jaw reconstruction. 3. Tonsillectomy for tonsillar cancer. 4. Foot surgery. ALLERGIES: No known drug allergies. FAMILY HISTORY: Not significant. SOCIAL HISTORY: The patient was a former smoker, quit about six years ago. Has a 40-pack year history. Quit drinking alcohol 20 years ago. No recreational drug use. HOME MEDICATIONS: - Tylenol 650 mg via PEG tube every 4 hours as needed - albuterol sulfate nebulizer three times a day as needed - albuterol MDI two puff inhalation every 4 hours as needed - aspirin 81 mg daily - multivitamin one tablet daily - prednisone 10 mg daily - ranitidine 150 mg one tablet via PEG tube at bedtime - Advair HFA one puff inhalation twice a day - vitamin B1 150 mg by mouth daily The patient has alternate courses of antibiotic each month, alternating between Augmentin 875 mg twice a day for seven days and Cipro 500 mg twice a day for seven days and Bactrim double strength one tablet twice a day for seven days in each month. REVIEW OF SYSTEMS: All ten-point review of systems are negative except those mentioned in history of present illness. PHYSICAL EXAMINATION: VITAL SIGNS: Temperature 98.7, pulse 97, respiratory rate 20, blood pressure 113/69, pulse oximetry 90% on 4 liters nasal cannula. GENERAL: The patient is awake, alert, and oriented times three. Sitting up in bed in no acute distress. HEENT: Normocephalic, atraumatic. There is facial asymmetry present because of his previous jaw necrosis and reconstruction. CARDIOVASCULAR: S1, S2 regular. No rub, murmur or gallop. ABDOMEN: Soft, nontender. Gastrostomy tube present. Bowel sounds present. EXTREMITIES: No edema. CHEST: Bilateral basilar crackles. No wheezing. Overall good air entry present. LABORATORY DATA: WBC 9.2, hemoglobin 14.6, platelets 213. Sodium 138, potassium 4.3, chloride 99, bicarbonate 31, BUN 22, creatinine 0.9, glucose 219, calcium 9.1, BNP 19.6. Blood gas: 7.39 pH, PCO2 50, PO2 59. Chest CT showed COPD, hyperinflation, chronic bronchiectasis and atelectasis. ASSESSMENT: 1. COPD exacerbation. 2. Chronic bronchiectasis. 3. Acute on chronic hypoxic and hypercarbic respiratory failure. 4. Gastroesophageal reflux disease (GERD). 5. Chronic interstitial pulmonary fibrosis. 6. 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 7. Back pain and lumbar stenosis. 8. History of tonsillar cancer, status post treatment. PLAN: 1. For COPD exacerbation, we will continue the patient on Advair, albuterol nebulizer. We will increase prednisone to 40 mg daily. We will continue with oxygen supplementation. 2. Acute on chronic hypoxic and hypercarbic respiratory failure. At present, seems to be resolving. We will continue with treatment for COPD. We will repeat ABG tomorrow in the morning. 3. Chronic bronchiectasis. The patient is on chronic suppressive therapy with antibiotics. 4. Chronic back pain and lumbar spinal stenosis, stable at this point. 5. Gastroesophageal reflux disease (GERD). We will continue with Pepcid. Feeding is through tube feeding. The patient is nothing by mouth, can be allowed ice or water. 6. Deep vein thrombosis (DVT) prophylaxis. As noted. MTDD
[2016-07-21 14:00] VITALS: BP 115/71
--- NOTE | 2016-07-21 17:14 | IPNPDOC ---
Assessment/Plan Date Seen The patient was seen on 07/21/16. Problems Problems: (1) Fever Status: Acute Problem Text: no etiology found , CT chest does not show any new pneumonia , has features of copd and chronic bronchectasis , cultures negative till today , no sputum production will hold off on antibiotcs if fever recurs will steat for acute bronchitis vs pneumonia. (2) COPD exacerbation Bad tableProblem Text: will continue with nebulizations. steroids. (3) Acute and chronic respiratory failure with hypoxia Status: Acute Problem Text: improved now back to baseline oxygen requirement. (4) Bronchiectasis Status: Chronic Problem Text: is on chronic antibiotic supprssive therapy 1 week / month. finished a course of bactrim for 1 week 2 days ago. (5) Interstitial pulmonary fibrosis Status: Chronic (6) GERD (gastroesophageal reflux disease) Status: Chronic (7) Lumbar canal stenosis Status: Chronic (8) Jaw asymmetry Status: Chronic Problem Text: from prior jaw necrosis (9) Hx: recurrent pneumonia Status: Chronic (10) PEG (percutaneous endoscopic gastrostomy) status Status: Chronic Plan / VTE VTE Prophylaxis Ordered?: Yes Subjective Review of Systems CC/HPI The patient is a 66-year-old male admitted with a reason for visit of Bronchiectasis Copd Exacerbation. Events since last encounter pateint had a spike of fever last night. no complaints this am , no cough or phlegm , no sob , no chest pain , no abdominal pain , nausea or vomiting. Objective Physical Examination General Exam: Positive: Alert, No Acute Distress Eye Exam: Positive: Conjunctiva & lids normal, EOMI, PERRLA, Negative: Sclera icteric ENT Exam: Positive: Atraumatic, Mucous membr. moist/pink, Pharynx Normal Neck Exam: Positive: Supple, Negative: JVD, thyromegaly Chest Exam: Positive: Diminished, Rales Heart Exam: Positive: Normal S1, Normal S2, Rate Normal, Regular Rhythm, Negative: Murmurs, Rubs Abdomen Exam: Positive: Normal bowel sounds, Soft, Negative: Hepatospenomegaly, Tenderness Extremity Exam: Positive: Normal pulses, Negative: Clubbing, Cyanosis, Edema Vital Signs/I&O Vital Signs Date Time Temp Pulse Resp B/P Pulse Ox O2 Delivery O2 Flow Rate FiO2 07/21/16 14:00 96.9 85 17 115/71 95 Nasal Cannula 4.0 I&O- Last 24 Hours up to 6 AM 07/21/16 06:00 Intake Total 600 ml Output Total 450 ml Balance 150 ml Laboratory Data Labs 24H Laboratory Tests 2 07/21/16 06:19: Anion Gap 7L, White Blood Count 6.5, Red Blood Count 4.30, Hemoglobin 14.7, Hematocrit 44.3, Mean Corpuscular Volume 103.0H, Mean Corpuscular Hemoglobin 34.2H, Mean Corpuscular Hemoglobin Concent 33.2, Red Cell Distribution Width 13.3, Platelet Count 194, Neutrophils (%) (Auto) 67.5H, Lymphocytes (%) (Auto) 13.1L, Monocytes (%) (Auto) 9.1H, Eosinophils (%) (Auto) 5.8H, Basophils (%) ( Auto) 0.4, Neutrophils # (Auto) 4.4, Lymphocytes # (Auto) 0.9L, Monocytes # ( Auto) 0.6, Eosinophils # (Auto) 0.4, Basophils # (Auto) 0.0, Blood Urea Nitrogen 18, Creatinine 0.79, Sodium Level 139, Potassium Level 4.1, Chloride Level 99, Carbon Dioxide Level 33H, Calcium Level 9.1, Glomerular Filtration Rate > 60.0, Large Unclassified Cells # 0.3, Large Unclassified Cells % 4.1H CBC/BMP Laboratory Tests 07/21/16 06:19 Calcium Level 9.1, Red Blood Count 4.30, Mean Corpuscular Volume 103.0 H, Mean Corpuscular Hemoglobin 34.2 H, Mean Corpuscular Hemoglobin Concent 33.2, Red Cell Distribution Width 13.3, Neutrophils (%) (Auto) 67.5 H, Lymphocytes (%) ( Auto) 13.1 L, Monocytes (%) (Auto) 9.1 H, Eosinophils (%) (Auto) 5.8 H, Basophils (%) (Auto) 0.4, Neutrophils # (Auto) 4.4, Lymphocytes # (Auto) 0.9 L, Monocytes # (Auto) 0.6, Eosinophils # (Auto) 0.4, Basophils # (Auto) 0.0 Microbiology Microbiology 07/20/16 Blood Culture - Preliminary, Resulted No growth after 24 hours . All specim... 07/20/16 Blood Culture - Preliminary, Resulted No growth after 24 hours . All specim... 07/20/16 Influenza Virus Type A Antigen - Final, Complete 07/20/16 Influenza Virus Type B Antigen - Final, Complete CHRIS CALZADA MD Jul 21, 2016 17:14
[2016-07-21] MEDS: FAMOTIDINE 20 MG TAB PEG SCH (20:55)
[2016-07-21 22:00] VITALS: BP 115/64
[2016-07-22] MEDS: ALBUTEROL SULFATE 2.5 MG/0.5 ML INH NEB SOLN NEB SCH ×4 (02:00→20:00)
[2016-07-22 06:00] VITALS: BP 100/60
[2016-07-22 06:17] LABS: BASO % 0.3 % (0.0-1.0); EOS % 0.4 % (0.0-3.0); LARGE UNSTAINED CELL # 0.2 K/mm3 (0.0-0.4); LARGE UNSTAINED CELL % 2.7 % (0.0-4.0); LYMPH % 12.4 % (24.0-44.0); MEAN CORPUSCULAR HEMOGLOBIN 34.4 pg (27.0-33.0); MEAN CORPUSCULAR HGB CONC 33.4 g/dl (32.0-36.5); MEAN CORPUSCULAR VOLUME 103.3 fl (80.0-96.0); MONO # 0.5 K/mm3 (0.0-0.8); NEUTROPHILS # 6.1 K/mm3 (1.8-7.7); NEUTROPHILS % 78.3 % (36.0-66.0); PLATELET COUNT, AUTOMATED 237 k/mm3 (150-450); RED CELL DISTRIBUTION WIDTH 13.1 % (11.5-14.5); WHITE BLOOD COUNT 7.8 K/mm3 (4.0-10.0)
[2016-07-22 06:35] LABS: ANION GAP 7 MEQ/L (8-16); BLOOD UREA NITROGEN 17 MG/DL (7-18); CALCIUM LEVEL 9.4 MG/DL (8.8-10.2); CARBON DIOXIDE LEVEL 31 MEQ/L (21-32); CHLORIDE LEVEL 101 MEQ/L (98-107); CREATININE FOR GFR 0.62 MG/DL (0.70-1.30); GLOMERULAR FILTRATION RATE > 60.0 (>49); GLUCOSE, FASTING 100 MG/DL (80-110); POTASSIUM SERUM 4.4 MEQ/L (3.5-5.1); SODIUM LEVEL 139 MEQ/L (136-145)
[2016-07-22] MEDS: ADVAIR HFA 115/21 INHALER INH SCH ×2 (07:33→20:56)
[2016-07-22] MEDS: PRENATAL VITAMIN TAB PEG SCH (09:20)
[2016-07-22] MEDS: ENOXAPARIN 40 MG/0.4 ML SYRINGE (J1650) SC SCH (09:20)
[2016-07-22] MEDS: predniSONE 20 MG TAB PEG SCH (09:20)
[2016-07-22] MEDS: THIAMINE 100 MG TAB PEG SCH (09:21)
[2016-07-22] MEDS: ASPIRIN 81 MG ENTERIC TAB PEG SCH (09:22)
[2016-07-22 14:00] VITALS: BP 108/64
--- NOTE | 2016-07-22 15:18 | IPN ---
DATE: 07/22/2016 SUBJECTIVE: Today, the patient tells me that he is feeling quite well. He denies shortness of breath. He denies any abdominal pain. He tells me that the symptoms for which he presented to the hospital have resolved at this point. OBJECTIVE: VITAL SIGNS: Temperature 96.9, pulse 84, respiratory rate 20, blood pressure 100/60, oxygen saturation 94% on four liters nasal cannula. GENERAL: He is a frail, elderly, man sitting up in the chair. He does not appear to be in any acute distress. HEENT: Chronic jaw deformities. Moist mucous membranes. No elevation of central venous pressure. CARDIOVASCULAR: S1, S2, regular. RESPIRATORY: Actually fairly clear. ABDOMEN: A percutaneous endoscopic gastrostomy (PEG) tube is in place, clean, dry and intact. EXTREMITIES: No clubbing, cyanosis, or edema. He appears actually quite cachectic. LABORATORY STUDIES: Today, WBC 7.8, hemoglobin 13.9, hematocrit 41.8, platelet count 237. Chemistry panel: Sodium 139, potassium 4.4, chloride 101, bicarbonate 31, BUN 17, creatinine 0.6. MICROBIOLOGY: Blood cultures are negative after 48 hours and a flu swab is also negative. IMAGING STUDIES: The patient did have a CT scan of his chest which revealed chronic bronchiectasis and atelectatic changes in the lower lobes bilaterally, left greater than right, evidence of COPD and overall hyperinflation. No new infiltrates seen. ASSESSMENT AND PLAN: This is a 66-year-old man with a history of bronchiectasis who presented with shortness of breath and abdominal pain as well as fever. PROBLEMS: 1. Fever. At this time, no etiology has been found. The patient does have bronchiectasis and is on rotating course of antibiotics. He is certainly at risk for infections. However, at this time, without any antibiotic treatment thus far into his hospital stay, his symptoms do appear to have resolved. He has not had any further fevers. I will monitor him for an additional 24 hours to make sure that he does not have any fevers given his propensity to have these types of infections. His cultures remain negative. He is not producing any sputum. As for the time being, we will simply continue with supportive care. 2. Chronic obstructive pulmonary disease (COPD) exacerbation. The patient is currently on day two of prednisone 40 mg. He is continued on nebulizer treatments and his symptoms are improving. It is felt that his presenting symptoms were secondary to decompensated COPD as opposed to any active infection. The patient is on Advair and albuterol. 3. Acute on chronic respiratory failure with hypoxia. The patient is back to his baseline oxygen requirement of three liters. 4. Bronchiectasis. The patient is on chronic antibiotic suppressive therapy, one week each month. He recently completed his course of Bactrim. 5. Interstitial pulmonary fibrosis, chronic and stable. 6. Gastroesophageal reflux disease. The patient is on Pepcid. 7. 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 8. History of aspiration pneumonia. The patient is status post a percutaneous endoscopic gastrostomy (PEG) tube. He takes water by mouth but otherwise all nutrition is through his PEG tube, including vitamins. 9. Deep vein thrombosis (DVT) prophylaxis. The patient is on Lovenox. DISPOSITION: We will continue to monitor the patient for an additional 24 hours. If he remains stable without any further fevers, he may be able to be discharged potentially within the next 24-48 hours.
--- NOTE | 2016-07-22 17:55 | EDDOCDS ---
Nurse's Notes [facility] Name: Jadon Grove Age: 66 yrs Sex: Male : 1950 Arrival Date: 07/20/2016 Time: 05:07 Bed Admit Hold Private MD: Diagnosis: Chronic obstructive pulmonary disease with (acute) exacerbation Presentation: 07/20 05:11 Presenting complaint: Patient states: difficulty breathing chills lower and upper cz abdominal pain for past week. Adult Sepsis Screening: The patient does not have new or worsening altered mentation. Patient's respiratory rate is less than 22. Systolic blood pressure is greater than 100. Patient has a qSOFA score of 0- Negative Sepsis Screen. Suicide/Homicide risk assessment- the patient denies having any suicidal and/or homicidal ideations and does not present with any other emotional, behavioral or mental health complaints. Status: Patient is not a surgical services asst or dependent. Transition of care: patient was not received from another setting of care. 05:11 Acuity: LORIN Level 3 cz 05:11 Method Of Arrival: Wheelchair cz Triage Assessment: 05:16 General: Appears in no apparent distress. Pain: Location: back and abdomen. cz 08:05 Respiratory: Onset: The symptoms/episode began/occurred 1 week ago. jc4 Historical: - Allergies: Flagyl (Rash); - Home Meds: 1. Advair Diskus 115/21 mcg/dose Inhl dsdv 1 puff 2 times per day 2. albuterol sulfate 2.5 mg/0.5 mL Inhl nebu 3 times per day 3. albuterol sulfate 90 mcg/actuation Inhl aepb 2 puffs every 4 hours As needed 4. aspirin 81 mg Oral tab 1 tab once daily 5. Oxygen 3LNC 6. Vitamin Oral tab 1 tab once daily 7. ranitidine HCl 75 mg Oral tab 1 tab once daily 8. rotates Cipro and Augmentin every month 9. thiamine HCl 100 mg Oral tab 150 mg daily - PMHx: Cancer Right Tonsil; COPD; Pneumonia; - PSHx: oral surgery; right foot surgery; Cataract Surgery- Bilateral; - Social history: Smoking status: Patient states former smoker of tobacco. No barriers to communication noted, The patient speaks fluent Telugu, Speaks appropriately for age. - Family history: No immediate family members are acutely ill. - : The pt / caregiver states he / she is not on anticoagulants. Home medication list is obtained from [employer] import data. - Exposure Risk Screening:: None identified. Screenin:02 Screening information is obtained from the patient. Fall risk: No risks identified. jc4 Assistance ADL's: requires no assistance with activities of daily living. Abuse/DV Screen: The patient / caregiver reports he/she is: not in a situation that causes fear, pain or injury. Nutritional screening: On TwoCal HN 1 can 4 times daily via Christian button. Advance Directives: Currently, there is a health care proxy, Caroline Grove, . There is no active DNR order. There is a living will, but a copy is not available at this time. There is an active Power of Soup Person, Caroline Grove, . home support is adequate. Assessment: 05:20 General: Appears distressed, Behavior is appropriate for age, cooperative, pleasant. kmg1 Pain: Denies pain. Neurological: Level of Consciousness is awake, alert. EENT: No deficits noted. Cardiovascular: Rhythm is sinus tachycardia No ectopy. Respiratory: Airway is patent Respiratory effort is labored, Respiratory pattern is regular, symmetrical, Breath sounds are coarse Breath sounds with crackles Breath sounds with rhonchi. GI: No deficits noted. 06:17 General: Appears in no apparent distress, comfortable, Behavior is appropriate for age, kmg1 cooperative, pleasant. Pain: Denies pain. Respiratory: pt now receiving nebs. 08:09 General: Appears in no apparent distress, comfortable, Behavior is cooperative, jc4 pleasant. Pain: Denies pain. Neurological: Level of Consciousness is awake, alert, Oriented to person, place, time. Cardiovascular: Rhythm is sinus tachycardia No ectopy. Respiratory: Airway is patent Respiratory effort is even, unlabored, Respiratory pattern is regular, symmetrical, maintained on 4 liters nasal canula Breath sounds with rhonchi bilaterally. Respiratory: Reports that breathing is improved since time of arrival. GI: Abdomen is non- distended other Christian button in place to left upper abdomen Bowel sounds present X 4 quads. Derm: Skin is pink, warm & dry. 09:44 General: Pt resting on stretcher. No distress noted at this time. Color pink, skin warm jc4 and dry. Respirations easy and full. Maintained on 4 liters nasal canula. Warm blankets given. IV antibiotics infusing well, site clear. at bedside. 11:00 General: Dr. Moe in to examine patient. jc4 12:00 General: Pt resting on stretcher. No distress noted at this time. at bedside. jc4 Denies complaint at this time. 12:48 General: Pt sitting up on stretcher, watching television. jc4 13:35 General: Appears in no apparent distress, Behavior is cooperative, pleasant. Pain: jc4 Denies pain. Neurological: Level of Consciousness is awake, alert, Oriented to person, place, time. Respiratory: Airway is patent Respiratory effort is even, unlabored, Respiratory pattern is regular, symmetrical, maintained on 4 liters nasal canula. Derm: Skin is pink, warm & dry. Vital Signs: 05:16 BP 123 / 68; Pulse 115; Resp 20; Temp 97.6; Pulse Ox 72% on 3 lpm NC; Weight 73.48 kg; cz Height 6 ft. 1 in. (185.42 cm); 05:53 BP 132 / 76 (auto/); jc4 06:08 BP 121 / 71 (auto/); jc4 06:23 Pulse 102 MON; Pulse Ox 93% ; jc4 06:23 BP 117 / 68 (auto/); jc4 06:36 Pulse 102 MON; Pulse Ox 92% ; jc4 06:38 BP 110 / 59 (auto/); jc4 06:53 BP 137 / 71 (auto/); jc4 06:53 Pulse 104 MON; Pulse Ox 95% ; jc4 07:04 Pulse 110 MON; Pulse Ox 92% ; jc4 07:08 BP 126 / 70 (auto/); jc4 07:23 BP 117 / 59 (auto/); jc4 07:38 BP 108 / 60 (auto/); jc4 07:38 Pulse 102 MON; Pulse Ox 92% ; jc4 07:52 Pulse 98 MON; Pulse Ox 92% ; jc4 07:53 BP 119 / 66 (auto/); jc4 08:01 BP 119 / 66; Pulse 98; Resp 22; Temp 98.8(TE); Pulse Ox 93% on 4 lpm NC; Pain 0/10; jc4 08:05 Pulse 98 MON; Pulse Ox 92% ; jc4 08:08 BP 132 / 68 (auto/); jc4 08:23 BP 126 / 69 (auto/); jc4 08:24 Pulse 94 MON; Pulse Ox 91% ; jc4 08:38 BP 123 / 67 (auto/); jc4 08:38 Pulse 94 MON; Pulse Ox 93% ; jc4 08:53 BP 123 / 68 (auto/); jc4 08:53 Pulse 96 MON; Pulse Ox 91% ; jc4 09:08 BP 105 / 56 (auto/); jc4 09:09 Pulse 94 MON; Pulse Ox 94% ; jc4 09:22 Pulse 96 MON; Pulse Ox 95% ; jc4 09:23 BP 124 / 66 (auto/); jc4 09:38 BP 111 / 59 (auto/); jc4 09:38 Pulse 94 MON; Pulse Ox 94% ; jc4 09:57 BP 121 / 63 (auto/); jc4 09:57 Pulse 98 MON; Pulse Ox 93% ; jc4 10:08 BP 117 / 60 (auto/); jc4 10:08 Pulse 92 MON; Pulse Ox 94% ; jc4 10:21 Pulse 90 MON; Pulse Ox 94% ; jc4 10:23 BP 113 / 59 (auto/); jc4 10:38 BP 108 / 66 (auto/); jc4 10:38 Pulse 88 MON; Pulse Ox 92% ; jc4 10:53 BP 133 / 59 (auto/); jc4 10:53 Pulse 88 MON; Pulse Ox 94% ; jc4 11:08 BP 122 / 64 (auto/); jc4 11:08 Pulse 90 MON; Pulse Ox 92% ; jc4 11:21 Pulse 86 MON; Pulse Ox 92% ; jc4 11:23 BP 107 / 60 (auto/); jc4 11:37 Pulse 86 MON; Pulse Ox 92% ; jc4 11:38 BP 107 / 63 (auto/); jc4 11:53 BP 116 / 66 (auto/); jc4 11:53 Pulse 88 MON; Pulse Ox 92% ; jc4 12:07 Pulse 86 MON; Pulse Ox 93% ; jc4 12:08 BP 118 / 67 (auto/); jc4 12:11 Pulse 86 MON; Pulse Ox 93% ; jc4 12:12 BP 108 / 65 (auto/); jc4 12:14 BP 108 / 65; Pulse 88; Resp 22; Temp 98.7(TE); Pulse Ox 93% on 4 lpm NC; Pain 0/10; sew 12:23 Pulse 88 MON; Pulse Ox 92% ; jc4 12:23 BP 113 / 67 (auto/); jc4 12:38 BP 115 / 69 (auto/); jc4 12:38 Pulse 88 MON; Pulse Ox 92% ; jc4 12:52 Pulse 88 MON; Pulse Ox 93% ; jc4 12:53 BP 124 / 68 (auto/); jc4 13:08 BP 126 / 67 (auto/); jc4 13:09 Pulse 88 MON; Pulse Ox 94% ; jc4 05:16 Body Mass Index 21.37 (73.48 kg, 185.42 cm) cz Vitals: 05:16 Log In Time: July 20, 2016 at 05:07. cz 05:20 Refer to monitor trend for complete vital signs trends. [facility] [place] Course: 05:09 Patient visited by Charlee Mckeon. gjb 05:09 Patient moved to Waiting gjb 05:13 Triage Initiated cz 05:18 Patient moved to 14 cz 05:20 The patient / caregiver is instructed regarding the plan of care and ED course. Cardiac kmg1 monitor on. Pulse ox on. NIBP on. 05:20 O2 via nasal cannula \T\ 4L/min. kmg1 05:27 Tevin Sanderson DO is Attending Physician. mm11 05:27 Patient visited by Tevin Sanderson DO. mm11 05:32 Patient visited by Tevin Sanderson DO. mm11 05:44 Pt greeted and oriented to ED. Patient advised of names of staff involved in care, [facility] location of call smith, wait times and NPO status. Accompanied by Caregiver, Patient has correct armband on for positive identification. Placed in gown. Bed in low position. Call light in reach. Side rails up X2. 05:44 EKG done. (by ED staff). Reviewed by Tevin Sanderson DO. jmv 05:46 Patient visited by Nirav Luu PCA. jmv 06:01 -Blood Culture Sent. kmg1 06:01 B-Type Natiuretic Peptide Sent. kmg1 06:01 Basic Metabolic Profile Sent. kmg1 06:01 CBC with Diff Sent. kmg1 06:02 Patient visited by Rika Hyde RN. kmg1 06:02 Inserted saline lock: 20 gauge in right forearm. Labs drawn. (by ED staff). Sent per km order to lab. 06:18 -Arterial Blood Gas Sent. nk1 06:20 Patient visited by Rika Hyde RN. kmg1 06:28 BLOOD CULTURES Sent. kmg1 06:45 DIFFERENTIAL NO CHARGE Sent. kmg1 07:24 Patient visited by Lavern De La Rosa PCA. ct3 08:09 Patient visited by Nadira Nova, LISSA. jc4 08:30 Attending Physician role handed off by Tevin Sanderson DO ml 08:30 Mukund Iglesias MD is Attending Physician. ml 08:52 Patient visited by Nadira Nova RN. jc4 09:17 Chest, 2 View (pa\E\lat) Returned. EDMS 09:29 [facility] Payment Agreement was scanned into [employer] and attached to record. lg 09:43 EKG-ADULT Returned. EDMS 09:44 -Influenza A&B Rapid Antigen - Nose Sent. jc4 09:46 Patient visited by Nadira Nova RN. jc4 09:46 Edna Moe is Hospitalizing Provider. ml 10:12 CT Chest Without Contrast Returned. EDMS 10:36 T-Sheet-- Draft Copy was scanned into [employer] and attached to record. seh 12:15 Patient visited by Miranda Negrete. sew 12:47 Patient visited by Nadira Nova RN. jc4 13:30 Patient moved to Admit Hold kpj 13:33 Patient moved to 21 kpj 13:33 Patient moved to Admit Hold kpj 16:52 No procedures done that require assistance. pml 07/21 09:46 ECG/EKG was scanned into [employer] and attached to record. gb Administered Medications: 07/20 06:18 Drug: Albuterol-Ipratropium 1 neb [ipratropium-albuterol 0.5 mg-3 mg(2.5 mg base)/3 mL nk1 nebulization soln (1 neb)] Route: Nebulizer; 06:45 Drug: Albuterol-Ipratropium 1 neb [ipratropium-albuterol 0.5 mg-3 mg(2.5 mg base)/3 mL km nebulization soln (1 neb)] Route: Nebulizer; 06:46 Follow up: Response: Nebulizer completed nk1 06:52 Drug: Albuterol-Ipratropium 1 neb [ipratropium-albuterol 0.5 mg-3 mg(2.5 mg base)/3 mL lf2 nebulization soln (1 neb)] Route: Nebulizer; 08:55 Drug: levofloxacin 750 mg [levofloxacin 750 mg/150 mL in 5 % dextrose intravenous jc4 piggyback] Route: IVPB; Infused Over: 90 mins; Site: right wrist; 10:23 Follow up: IV Status: Completed infusion; IV Intake: 150ml jc4 Intake: 10:23 IV: 150.00ml; Total: 150.00ml. jc4 RT: 06:18 ABG's drawn from left radial artery pressure held for 5 minutes no bleeding noted nk1 pressure bandage applied specimen sent pt. tolerated well. Initial Med Neb Given as ordered Patient was instructed and evaluated on procedure Patient tolerated procedure well without adverse effect. Respiratory: Respiratory effort is unlabored, Respiratory pattern is regular Breath sounds are diminished bilaterally. 06:18 Respiratory: Breath sounds are coarse bilaterally. Breath sounds with rhonchi nk1 bilaterally. Breath sounds are diminished. 06:46 Subsequent Med Neb Given as ordered Patient tolerated procedure well without adverse nk1 effect. 06:47 Respiratory: Breath sounds are coarse Breath sounds with rhonchi bilaterally. nk1 06:52 Subsequent Med Neb Given as ordered Patient tolerated procedure well without adverse lf2 effect. Respiratory: Breath sounds are coarse bilaterally. Breath sounds are diminished bilaterally. Order Results: Lab Order: -Arterial Blood Gas; SPEC'M 07/20/16 06:09 Test: ABG pH (ARTERIAL); Value: 7.397; Range: 7.350-7.450; Units: UNITS; Status: F Test: ABG PARTIAL PRESSURE CO2; Value: 50.7; Range: 35.0-45.0; Abnormal: Above high normal; Units: mmHg; Status: F Test: ABG PARTIAL PRESSURE O2; Value: 59.3; Range: 75.0-100.0; Abnormal: Below low normal; Units: mmHg; Status: F Test: ABG TOTAL CO2; Value: 32.0; Range: 23.0-31.0; Abnormal: Above high normal; Units: MEQ/L; Status: F Test: ABG HCO3; Value: 30.5; Range: 22.0-26.0; Abnormal: Above high normal; Units: MEQ/L; Status: F Test: ABG BASE EXCESS; Value: 4.4; Range: -2.0-2.0; Abnormal: Above high normal; Status: F Test: ABG STANDARD HCO3; Value: 28.3; Range: 22.0-26.0; Abnormal: Above high normal; Units: MEQ/L; Status: F Test: ABG O2 SATURATION; Value: 90.7; Range: 95.0-99.0; Abnormal: Below low normal; Units: %; Status: F Test: ABG DEVICE; Value: NASAL JUDSON; Status: F Lab Order: B-Type Natiuretic Peptide; SPEC'07/20/16 06:00 Test: BRAIN NATRIURETIC PEPTIDE; Value: 19.6; Range: <100; Units: PG/ML; Status: F Lab Order: Basic Metabolic Profile; SPEC'07/20/16 06:00 Test: GLUCOSE, FASTING; Value: 219; Range: 80-110; Abnormal: Above high normal; Units: MG/DL; Status: F Test: BLOOD UREA NITROGEN; Value: 22; Range: 7-18; Abnormal: Above high normal; Units: MG/DL; Status: F Test: CREATININE FOR GFR; Value: 0.99; Range: 0.70-1.30; Units: MG/DL; Status: F Test: GLOMERULAR FILTRATION RATE; Value: > 60.0; Range: >49; Status: F Test: SODIUM LEVEL; Value: 138; Range: 136-145; Units: MEQ/L; Status: F Test: POTASSIUM SERUM; Value: 4.3; Range: 3.5-5.1; Units: MEQ/L; Status: F Test: CHLORIDE LEVEL; Value: 99; Range: 98-107; Units: MEQ/L; Status: F Test: CARBON DIOXIDE LEVEL; Value: 31; Range: 21-32; Units: MEQ/L; Status: F Test: ANION GAP; Value: 8; Range: 8-16; Units: MEQ/L; Status: F Test: CALCIUM LEVEL; Value: 9.1; Range: 8.8-10.2; Units: MG/DL; Status: F Test Note: ; Units are mL/min/1.73 m2 Chronic Kidney Disease Staging per NKF: Stage I & II GFR >=60 Normal to Mildly Decreased Stage III GFR 30-59 Moderately Decreased Stage IV GFR 15-29 Severely Decreased Stage V GFR <15 Very Little GFR Left ESRD GFR <15 on RADIO OPERATOR GROUND Lab Order: CBC with Diff; SPEC'M 07/20/16 06:00 Test: WHITE BLOOD COUNT; Value: 9.2; Range: 4.0-10.0; Units: K/mm3; Status: F Test: RED BLOOD COUNT; Value: 4.19; Range: 4.30-6.10; Abnormal: Below low normal; Units: M/mm3; Status: F Test: HEMOGLOBIN; Value: 14.6; Range: 14.0-18.0; Units: g/dl; Status: F Test: HEMATOCRIT; Value: 44.1; Range: 42.0-52.0; Units: %; Status: F Test: MEAN CORPUSCULAR VOLUME; Value: 105.1; Range: 80.0-96.0; Abnormal: Above high normal; Units: fl; Status: F Test: MEAN CORPUSCULAR HEMOGLOBIN; Value: 34.8; Range: 27.0-33.0; Abnormal: Above high normal; Units: pg; Status: F Test: MEAN CORPUSCULAR HGB CONC; Value: 33.1; Range: 32.0-36.5; Units: g/dl; Status: F Test: RED CELL DISTRIBUTION WIDTH; Value: 13.3; Range: 11.5-14.5; Units: %; Status: F Test: PLATELET COUNT, AUTOMATED; Value: 213; Range: 150-450; Units: k/mm3; Status: F Test: NEUTROPHILS; Value: 91; Range: 35-75; Abnormal: Above high normal; Units: %; Status: F Test: LYMPHOCYTES; Value: 4; Range: 16-52; Abnormal: Below low normal; Units: %; Status: F Test: MONOCYTES; Value: 4; Range: 0-8; Units: %; Status: F Test: EOSINOPHILS; Value: 1; Range: 0-5; Units: %; Status: F Test: MACROCYTOSIS; Value: 1+; Status: F Lab Order: PLATELET ESTIMATE; SPEC'07/20/16 06:00 Test: PLATELET ESTIMATE; Value: NORMAL; Range: NORMAL; Status: F Lab Order: -Influenza A&B Rapid Antigen - Nose; SPEC'M 07/20/16 09:42 Test: INFLUENZA A RAPID SCR by ICA; Value: INFLUENZA A RESULTS NEGATIVE; Status: F Test: INFLUENZA A RAPID SCR by ICA; Value: Comments:; Status: F Test: INFLUENZA B RAPID SCR by ICA; Value: INFLUENZA B RESULTS NEGATIVE; Status: F Test Note: ; The Influenza test is a direct rapid immunoassay for the qualitative detection of Influenza viral antigen. Cell culture (Viral Culture) testing should be considered to confirm NEGATIVE results and to assist in detecting other viruses that can provide similar clinical symptoms. Please contact the lab within 24 hours ([phone]) if confirmatory testing is desired. Radiology Order: Chest, 2 View (pa\E\lat) Test: Chest, 2 View (pa\E\lat) REASON FOR EXAMINATION: Shortness of Breath; Chest x-ray: Two views.; ; History: Shortness of breath.; ; Comparison chest x-ray April 02, 2016.; ; Findings: The lungs are hyperinflated. This is consistent with COPD. Heart is; at the upper range of normal in size. There are clips in the upper abdomen.; There is an infiltrate in the right lower lobe again noted. This is a little; less prominent but otherwise similar to the findings on April 02, 2016.; Question chronic persistent infiltrate versus recurrent pneumonia. There is a; granulomatous calcification in the right base. There is a questionable nodule in; the right mid lung zone. EKG monitoring electrodes and oxygen delivery tubing; are seen. There are degenerative changes in the thoracic spine again noted.; ; Impression:; ; Chronic versus recurrent infiltrate right base. Questionable nodule right mid; lung zone. Consider repeat CT scanning. CT scanning was most recently performed; April 03, 2016. 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; : 1950 Requested By: TEVIN Gloria; Order Number: [id number] Reading MD: Scott Earl; Measurements; Intervals [place]; Rate: 105 P: 81; CT: 139 QRS: 66; QRSD: 79 T: 87; QT: 315; QTc: 417; Interpretive Statements; SINUS TACHYCARDIA WITH OCCASIONAL VENTRICULAR PREMATURE COMPLEXES; NONSPECIFIC ST T-WAVE ABNORMALITY; ; ; Electronically Signed On 07-20-2016 9:27:55 EST by Scott Earl; Radiology Order: CT Chest Without Contrast Test: CT Chest Without Contrast REASON FOR EXAMINATION: Cough;Shortness of Breath; CT study of the chest without contrast:; ; History: Cough.; ; Comparison CT study is from April 03, 2016. Comparison is made with today's; chest x-ray showing possible nodule in the right mid lung zone and recurrent; versus persistent infiltrate in the right lower lobe.; ; Findings: Overall, there is evidence of hyperinflation with flattening of the; hemidiaphragms as before. The patient has a gastrostomy feeding tube. There is; peripheral calcification pattern throughout the gallbladder consistent with; porcelain gallbladder again noted unchanged. The upper abdominal structures are; otherwise unremarkable.; ; There is no visible pulmonary parenchymal mass lesion. No nodule is seen in the; right middle lobe. No new infiltrate is noted. There is chronic-appearing; bilateral lower lobe bronchiectasis. There is nearly complete collapse of the; left lower lobe with air remaining in bronchiectatic branches. This is unchanged; from the prior study. There are similar less prominent or less advanced changes; in the right lower lobe with extensive bronchiectasis, some volume loss and; retained endobronchial secretions. The parenchymal opacity pattern seen; previously is similar perhaps slightly less prominent. No progressive change is; seen. There is left apical and to a lesser extent right apical pleuroparenchymal; scarring and emphysematous changes are seen.; ; Impression:; ; Chronic bronchiectasis and atelectatic changes in the lower lobes bilaterally,; left greater than right. Evidence of COPD and overall hyperinflation. No new; infiltrate seen.; ; ; Signed by; Jeff Gillespie MD 07/20/2016 10:23 A; Outcome: 09:47 Decision to Hospitalize by Provider. ml 13:46 Admission hand-off: Other: Report to Angeles Posey RN [place] nurse . jc4 16:52 Discharge Assessment: Patient awake, alert and oriented x 3. No cognitive and/or pml functional deficits noted. Patient verbalized understanding of disposition instructions. patient administered narcotics - no. The following High Risk Discharge criteria are identified: None. Admitted to Med/Surg accompanied by tech, via stretcher, with chart. Condition: good Condition: stable. CT Study completed. Property sent home with patient. 16:53 Patient left the ED. pml Signatures: Dispatcher [employer] EDMS Mukund Iglesias MD MD Rika Hyde, RN RN kmg1 Jessica Guthrie, LISSA RN kpj Evangelist Gonzalez, LISSA RN cz Sylvia Callejas, Reg Reg gb Rowena Olivas, Reg Reg lg Nikole Strong,RT RT nk1 Tevin Sanderson, DO mm11 Nadira Nova RN RN jc4 Lavern De La Rosa, NEON GLASS BLOWER NEON GLASS BLOWER ct3 Liudmila Cabello RN RN pml Caden, Charlee Delacruz Lisa,RT RT lf2 Miranda Gutierrez Jose, NEON GLASS BLOWER NEON GLASS BLOWER jmv Corrections: (The following items were deleted from the chart) 08:14 05:16 Allergies: No known drug Allergies; cz jc4 16:53 16:52 No special radiology studies were completed pml pml Chart Complete MTDD
--- NOTE | 2016-07-22 17:55 | EDDOCDS ---
Physician Documentation [facility] Name: Jadon Grove Age: 66 yrs Sex: Male : 1950 Arrival Date: 07/20/2016 Time: 05:07 Bed Admit Hold Private MD: Disposition: 07/20/16 09:47 Hospitalization ordered by Edna Moe for Inpatient Admission. Preliminary diagnosis is Chronic obstructive pulmonary disease with (acute) exacerbation. - Bed requested for 4 [place]. - Status is Inpatient Admission. pml - Condition is Stable. - Problem is new. - Symptoms are unchanged. Historical: - Allergies: Flagyl (Rash); - Home Meds: 1. Advair Diskus 115/21 mcg/dose Inhl dsdv 1 puff 2 times per day 2. albuterol sulfate 2.5 mg/0.5 mL Inhl nebu 3 times per day 3. albuterol sulfate 90 mcg/actuation Inhl aepb 2 puffs every 4 hours As needed 4. aspirin 81 mg Oral tab 1 tab once daily 5. Oxygen 3LNC 6. Vitamin Oral tab 1 tab once daily 7. ranitidine HCl 75 mg Oral tab 1 tab once daily 8. rotates Cipro and Augmentin every month 9. thiamine HCl 100 mg Oral tab 150 mg daily - PMHx: Cancer Right Tonsil; COPD; Pneumonia; - PSHx: oral surgery; right foot surgery; Cataract Surgery- Bilateral; - Social history: Smoking status: Patient states former smoker of tobacco. No barriers to communication noted, The patient speaks fluent Martiniquais, Speaks appropriately for age. - Family history: No immediate family members are acutely ill. - : The pt / caregiver states he / she is not on anticoagulants. Home medication list is obtained from [employer] import data. - Exposure Risk Screening:: None identified. Vital Signs: 07/20 05:16 BP 123 / 68; Pulse 115; Resp 20; Temp 97.6; Pulse Ox 72% on 3 lpm NC; Weight 73.48 kg / cz 162 lbs; Height 6 ft. 1 in. (185.42 cm); 05:53 BP 132 / 76 (auto/); jc4 06:08 BP 121 / 71 (auto/); jc4 06:23 Pulse 102 MON; Pulse Ox 93% ; jc4 06:23 BP 117 / 68 (auto/); jc4 06:36 Pulse 102 MON; Pulse Ox 92% ; jc4 06:38 BP 110 / 59 (auto/); jc4 06:53 BP 137 / 71 (auto/); jc4 06:53 Pulse 104 MON; Pulse Ox 95% ; jc4 07:04 Pulse 110 MON; Pulse Ox 92% ; jc4 07:08 BP 126 / 70 (auto/); jc4 07:23 BP 117 / 59 (auto/); jc4 07:38 BP 108 / 60 (auto/); jc4 07:38 Pulse 102 MON; Pulse Ox 92% ; jc4 07:52 Pulse 98 MON; Pulse Ox 92% ; jc4 07:53 BP 119 / 66 (auto/); jc4 08:01 BP 119 / 66; Pulse 98; Resp 22; Temp 98.8(TE); Pulse Ox 93% on 4 lpm NC; Pain 0/10; jc4 08:05 Pulse 98 MON; Pulse Ox 92% ; jc4 08:08 BP 132 / 68 (auto/); jc4 08:23 BP 126 / 69 (auto/); jc4 08:24 Pulse 94 MON; Pulse Ox 91% ; jc4 08:38 BP 123 / 67 (auto/); jc4 08:38 Pulse 94 MON; Pulse Ox 93% ; jc4 08:53 BP 123 / 68 (auto/); jc4 08:53 Pulse 96 MON; Pulse Ox 91% ; jc4 09:08 BP 105 / 56 (auto/); jc4 09:09 Pulse 94 MON; Pulse Ox 94% ; jc4 09:22 Pulse 96 MON; Pulse Ox 95% ; jc4 09:23 BP 124 / 66 (auto/); jc4 09:38 BP 111 / 59 (auto/); jc4 09:38 Pulse 94 MON; Pulse Ox 94% ; jc4 09:57 BP 121 / 63 (auto/); jc4 09:57 Pulse 98 MON; Pulse Ox 93% ; jc4 10:08 BP 117 / 60 (auto/); jc4 10:08 Pulse 92 MON; Pulse Ox 94% ; jc4 10:21 Pulse 90 MON; Pulse Ox 94% ; jc4 10:23 BP 113 / 59 (auto/); jc4 10:38 BP 108 / 66 (auto/); jc4 10:38 Pulse 88 MON; Pulse Ox 92% ; jc4 10:53 BP 133 / 59 (auto/); jc4 10:53 Pulse 88 MON; Pulse Ox 94% ; jc4 11:08 BP 122 / 64 (auto/); jc4 11:08 Pulse 90 MON; Pulse Ox 92% ; jc4 11:21 Pulse 86 MON; Pulse Ox 92% ; jc4 11:23 BP 107 / 60 (auto/); jc4 11:37 Pulse 86 MON; Pulse Ox 92% ; jc4 11:38 BP 107 / 63 (auto/); jc4 11:53 BP 116 / 66 (auto/); jc4 11:53 Pulse 88 MON; Pulse Ox 92% ; jc4 12:07 Pulse 86 MON; Pulse Ox 93% ; jc4 12:08 BP 118 / 67 (auto/); jc4 12:11 Pulse 86 MON; Pulse Ox 93% ; jc4 12:12 BP 108 / 65 (auto/); jc4 12:14 BP 108 / 65; Pulse 88; Resp 22; Temp 98.7(TE); Pulse Ox 93% on 4 lpm NC; Pain 0/10; sew 12:23 Pulse 88 MON; Pulse Ox 92% ; jc4 12:23 BP 113 / 67 (auto/); jc4 12:38 BP 115 / 69 (auto/); jc4 12:38 Pulse 88 MON; Pulse Ox 92% ; jc4 12:52 Pulse 88 MON; Pulse Ox 93% ; jc4 12:53 BP 124 / 68 (auto/); jc4 13:08 BP 126 / 67 (auto/); jc4 13:09 Pulse 88 MON; Pulse Ox 94% ; jc4 05:16 Body Mass Index 21.37 (73.48 kg, 185.42 cm) cz MDM: 05:33 -Blood Culture (Adults Only), peripheral from different site, or from device/port/PICC mm11 etc. if present ordered. 05:33 Electroneurodiagnostic Technologist/Pulse Ox/q 15 min VS ordered. mm11 05:33 IV Saline Lock ordered. mm11 05:33 Oxygen at 4L/Min NC or Home dosage ordered. mm11 05:33 Rhythm Strip to chart ordered. mm11 05:33 Albuterol-Ipratropium 1 neb Nebulizer every 20 minutes x3 ordered. mm11 05:33 Call Respiratory ordered. mm11 05:34 -Arterial Blood Gas Ordered. EDMS 05:34 -Blood Culture Ordered. EDMS 05:34 B-Type Natiuretic Peptide Ordered. EDMS 05:34 Basic Metabolic Profile Ordered. EDMS 05:34 CBC with Diff Ordered. EDMS 05:34 Chest, 2 View (pa\E\lat) Ordered. EDMS 05:35 ECG WITH READING ER PHYS+CARDIAG ordered. EDMS 05:35 -Blood Culture (Adults Only), peripheral from different site, or from device/port/PICC ml3 etc. if present complete. 05:37 BLOOD CULTURES Ordered. EDMS 05:40 Call Respiratory complete. ml3 06:33 DIFFERENTIAL NO CHARGE Ordered. EDMS 06:33 PLATELET ESTIMATE Ordered. EDMS 07:02 -Arterial Blood Gas Reviewed. mm11 07:02 Basic Metabolic Profile Reviewed. mm11 07:02 CBC with Diff Reviewed. mm11 07:02 B-Type Natiuretic Peptide Reviewed. mm11 07:30 CBC with Diff Reviewed. mm11 07:30 PLATELET ESTIMATE Reviewed. mm11 07:53 Financial registration complete. lg 08:21 levofloxacin 750 mg IVPB once over 90 mins ordered. mm11 08:22 CT Chest Without Contrast Ordered. EDMS 08:23 BED REQUEST+ADM ordered. EDMS 09:24 -Influenza A&B Rapid Antigen - Nose Ordered. EDMS 09:29 [facility] [place] Payment Agreement was scanned into [employer] and attached to record. lg 10:36 T-Sheet-- Draft Copy was scanned into [employer] and attached to record. seh 12:10 Admission / Observation Status ordered. EDMS 12:11 NPO DIET ordered. EDMS 07/21 09:46 ECG/EKG was scanned into [employer] and attached to record. gb Administered Medications: 07/20 06:18 Drug: Albuterol-Ipratropium 1 neb [ipratropium-albuterol 0.5 mg-3 mg(2.5 mg base)/3 mL nk1 nebulization soln (1 neb)] Route: Nebulizer; 06:45 Drug: Albuterol-Ipratropium 1 neb [ipratropium-albuterol 0.5 mg-3 mg(2.5 mg base)/3 mL kmg1 nebulization soln (1 neb)] Route: Nebulizer; 06:46 Follow up: Response: Nebulizer completed nk1 06:52 Drug: Albuterol-Ipratropium 1 neb [ipratropium-albuterol 0.5 mg-3 mg(2.5 mg base)/3 mL lf2 nebulization soln (1 neb)] Route: Nebulizer; 08:55 Drug: levofloxacin 750 mg [levofloxacin 750 mg/150 mL in 5 % dextrose intravenous jc4 piggyback] Route: IVPB; Infused Over: 90 mins; Site: right wrist; 10:23 Follow up: IV Status: Completed infusion; IV Intake: 150ml jc4 Signatures: Dispatcher [employer] EDMS Mukund Iglesias MD MD ml Rika Hyde, RN RN kmg1 Evangelist Gonzalez RN RN cz Sylvia Callejas, Reg Reg gb Rowena Olivas, Reg Reg lg Dwayne Hauser, Slot Floor Person Unit ml3 Ricardo Sanderson, DO mm11 Colleen Young, FOURCHETTE SEWER FOURCHETTE SEWER ar3 Nadira Nova RN RN jc4 Liudmila Cabello RN RN pml Hoffert, Nikole Godinez RT nk1 Katina Zarco RT lf2 The chart was reviewed and I authenticate all verbal orders and agree with the evaluation and treatment provided.Corrections: (The following items were deleted from the chart) 08:14 05:16 Allergies: No known drug Allergies; rudy jc4 Attachments: 09:29 [facility] Payment Agreement lg 10:36 T-Sheet-- Draft Copy [facility] 07/21 09:46 ECG/EKG gb Chart Complete MTDD
--- NOTE | 2016-07-22 17:55 | EDDOCDS ---
Physician Documentation [facility] Name: Jadon Grove Age: 66 yrs Sex: Male : 1950 Arrival Date: 07/20/2016 Time: 05:07 Bed Admit Hold Private MD: Disposition: 07/20/16 09:47 Hospitalization ordered by Edna Moe for Inpatient Admission. Preliminary diagnosis is Chronic obstructive pulmonary disease with (acute) exacerbation. - Bed requested for 4 [place]. - Status is Inpatient Admission. pml - Condition is Stable. - Problem is new. - Symptoms are unchanged. Historical: - Allergies: Flagyl (Rash); - Home Meds: 1. Advair Diskus 115/21 mcg/dose Inhl dsdv 1 puff 2 times per day 2. albuterol sulfate 2.5 mg/0.5 mL Inhl nebu 3 times per day 3. albuterol sulfate 90 mcg/actuation Inhl aepb 2 puffs every 4 hours As needed 4. aspirin 81 mg Oral tab 1 tab once daily 5. Oxygen 3LNC 6. Vitamin Oral tab 1 tab once daily 7. ranitidine HCl 75 mg Oral tab 1 tab once daily 8. rotates Cipro and Augmentin every month 9. thiamine HCl 100 mg Oral tab 150 mg daily - PMHx: Cancer Right Tonsil; COPD; Pneumonia; - PSHx: oral surgery; right foot surgery; Cataract Surgery- Bilateral; - Social history: Smoking status: Patient states former smoker of tobacco. No barriers to communication noted, The patient speaks fluent Uruguayan, Speaks appropriately for age. - Family history: No immediate family members are acutely ill. - : The pt / caregiver states he / she is not on anticoagulants. Home medication list is obtained from [employer] import data. - Exposure Risk Screening:: None identified. Vital Signs: 07/20 05:16 BP 123 / 68; Pulse 115; Resp 20; Temp 97.6; Pulse Ox 72% on 3 lpm NC; Weight 73.48 kg / cz 162 lbs; Height 6 ft. 1 in. (185.42 cm); 05:53 BP 132 / 76 (auto/); jc4 06:08 BP 121 / 71 (auto/); jc4 06:23 Pulse 102 MON; Pulse Ox 93% ; jc4 06:23 BP 117 / 68 (auto/); jc4 06:36 Pulse 102 MON; Pulse Ox 92% ; jc4 06:38 BP 110 / 59 (auto/); jc4 06:53 BP 137 / 71 (auto/); jc4 06:53 Pulse 104 MON; Pulse Ox 95% ; jc4 07:04 Pulse 110 MON; Pulse Ox 92% ; jc4 07:08 BP 126 / 70 (auto/); jc4 07:23 BP 117 / 59 (auto/); jc4 07:38 BP 108 / 60 (auto/); jc4 07:38 Pulse 102 MON; Pulse Ox 92% ; jc4 07:52 Pulse 98 MON; Pulse Ox 92% ; jc4 07:53 BP 119 / 66 (auto/); jc4 08:01 BP 119 / 66; Pulse 98; Resp 22; Temp 98.8(TE); Pulse Ox 93% on 4 lpm NC; Pain 0/10; jc4 08:05 Pulse 98 MON; Pulse Ox 92% ; jc4 08:08 BP 132 / 68 (auto/); jc4 08:23 BP 126 / 69 (auto/); jc4 08:24 Pulse 94 MON; Pulse Ox 91% ; jc4 08:38 BP 123 / 67 (auto/); jc4 08:38 Pulse 94 MON; Pulse Ox 93% ; jc4 08:53 BP 123 / 68 (auto/); jc4 08:53 Pulse 96 MON; Pulse Ox 91% ; jc4 09:08 BP 105 / 56 (auto/); jc4 09:09 Pulse 94 MON; Pulse Ox 94% ; jc4 09:22 Pulse 96 MON; Pulse Ox 95% ; jc4 09:23 BP 124 / 66 (auto/); jc4 09:38 BP 111 / 59 (auto/); jc4 09:38 Pulse 94 MON; Pulse Ox 94% ; jc4 09:57 BP 121 / 63 (auto/); jc4 09:57 Pulse 98 MON; Pulse Ox 93% ; jc4 10:08 BP 117 / 60 (auto/); jc4 10:08 Pulse 92 MON; Pulse Ox 94% ; jc4 10:21 Pulse 90 MON; Pulse Ox 94% ; jc4 10:23 BP 113 / 59 (auto/); jc4 10:38 BP 108 / 66 (auto/); jc4 10:38 Pulse 88 MON; Pulse Ox 92% ; jc4 10:53 BP 133 / 59 (auto/); jc4 10:53 Pulse 88 MON; Pulse Ox 94% ; jc4 11:08 BP 122 / 64 (auto/); jc4 11:08 Pulse 90 MON; Pulse Ox 92% ; jc4 11:21 Pulse 86 MON; Pulse Ox 92% ; jc4 11:23 BP 107 / 60 (auto/); jc4 11:37 Pulse 86 MON; Pulse Ox 92% ; jc4 11:38 BP 107 / 63 (auto/); jc4 11:53 BP 116 / 66 (auto/); jc4 11:53 Pulse 88 MON; Pulse Ox 92% ; jc4 12:07 Pulse 86 MON; Pulse Ox 93% ; jc4 12:08 BP 118 / 67 (auto/); jc4 12:11 Pulse 86 MON; Pulse Ox 93% ; jc4 12:12 BP 108 / 65 (auto/); jc4 12:14 BP 108 / 65; Pulse 88; Resp 22; Temp 98.7(TE); Pulse Ox 93% on 4 lpm NC; Pain 0/10; sew 12:23 Pulse 88 MON; Pulse Ox 92% ; jc4 12:23 BP 113 / 67 (auto/); jc4 12:38 BP 115 / 69 (auto/); jc4 12:38 Pulse 88 MON; Pulse Ox 92% ; jc4 12:52 Pulse 88 MON; Pulse Ox 93% ; jc4 12:53 BP 124 / 68 (auto/); jc4 13:08 BP 126 / 67 (auto/); jc4 13:09 Pulse 88 MON; Pulse Ox 94% ; jc4 05:16 Body Mass Index 21.37 (73.48 kg, 185.42 cm) cz MDM: 05:33 -Blood Culture (Adults Only), peripheral from different site, or from device/port/PICC mm11 etc. if present ordered. 05:33 [employer] Assistant/Pulse Ox/q 15 min VS ordered. mm11 05:33 IV Saline Lock ordered. mm11 05:33 Oxygen at 4L/Min NC or Home dosage ordered. mm11 05:33 Rhythm Strip to chart ordered. mm11 05:33 Albuterol-Ipratropium 1 neb Nebulizer every 20 minutes x3 ordered. mm11 05:33 Call Respiratory ordered. mm11 05:34 -Arterial Blood Gas Ordered. EDMS 05:34 -Blood Culture Ordered. EDMS 05:34 B-Type Natiuretic Peptide Ordered. EDMS 05:34 Basic Metabolic Profile Ordered. EDMS 05:34 CBC with Diff Ordered. EDMS 05:34 Chest, 2 View (pa\E\lat) Ordered. EDMS 05:35 ECG WITH READING ER PHYS+CARDIAG ordered. EDMS 05:35 -Blood Culture (Adults Only), peripheral from different site, or from device/port/PICC ml3 etc. if present complete. 05:37 BLOOD CULTURES Ordered. EDMS 05:40 Call Respiratory complete. ml3 06:33 DIFFERENTIAL NO CHARGE Ordered. EDMS 06:33 PLATELET ESTIMATE Ordered. EDMS 07:02 -Arterial Blood Gas Reviewed. mm11 07:02 Basic Metabolic Profile Reviewed. mm11 07:02 CBC with Diff Reviewed. mm11 07:02 B-Type Natiuretic Peptide Reviewed. mm11 07:30 CBC with Diff Reviewed. mm11 07:30 PLATELET ESTIMATE Reviewed. mm11 07:53 Financial registration complete. lg 08:21 levofloxacin 750 mg IVPB once over 90 mins ordered. mm11 08:22 CT Chest Without Contrast Ordered. EDMS 08:23 BED REQUEST+ADM ordered. EDMS 09:24 -Influenza A&B Rapid Antigen - Nose Ordered. EDMS 09:29 [facility] [place] Payment Agreement was scanned into [employer] and attached to record. lg 10:36 T-Sheet-- Draft Copy was scanned into [employer] and attached to record. seh 12:10 Admission / Observation Status ordered. EDMS 12:11 NPO DIET ordered. EDMS 07/21 09:46 ECG/EKG was scanned into [employer] and attached to record. gb Administered Medications: 07/20 06:18 Drug: Albuterol-Ipratropium 1 neb [ipratropium-albuterol 0.5 mg-3 mg(2.5 mg base)/3 mL nk1 nebulization soln (1 neb)] Route: Nebulizer; 06:45 Drug: Albuterol-Ipratropium 1 neb [ipratropium-albuterol 0.5 mg-3 mg(2.5 mg base)/3 mL kmg1 nebulization soln (1 neb)] Route: Nebulizer; 06:46 Follow up: Response: Nebulizer completed nk1 06:52 Drug: Albuterol-Ipratropium 1 neb [ipratropium-albuterol 0.5 mg-3 mg(2.5 mg base)/3 mL lf2 nebulization soln (1 neb)] Route: Nebulizer; 08:55 Drug: levofloxacin 750 mg [levofloxacin 750 mg/150 mL in 5 % dextrose intravenous jc4 piggyback] Route: IVPB; Infused Over: 90 mins; Site: right wrist; 10:23 Follow up: IV Status: Completed infusion; IV Intake: 150ml jc4 Signatures: Dispatcher [employer] EDMS Mukund Iglesias MD MD ml Rika Hyde, RN RN kmg1 Evangelist Gonzalez RN RN cz Sylvia Callejas, Reg Reg gb Rowena Olivas, Reg Reg lg Dwayne Hauser, Station Installation Supervisor Unit ml3 Ricardo Sanderson, DO mm11 Colleen Young, SEO MARKETING SPECIALIST SEO MARKETING SPECIALIST ar3 Nadira Nova RN RN jc4 Liudmila Cabello RN RN pml Hoffert, Nikole Godinez RT nk1 Katina Zarco RT lf2 The chart was reviewed and I authenticate all verbal orders and agree with the evaluation and treatment provided.Corrections: (The following items were deleted from the chart) 08:14 05:16 Allergies: No known drug Allergies; rudy jc4 Attachments: 09:29 [facility] Payment Agreement lg 10:36 T-Sheet-- Draft Copy [facility] 07/21 09:46 ECG/EKG gb Chart Complete MTDD
[2016-07-22] MEDS: FAMOTIDINE 20 MG TAB PEG SCH (19:57)
[2016-07-22 22:00] VITALS: BP 129/71
[2016-07-23] MEDS: ALBUTEROL SULFATE 2.5 MG/0.5 ML INH NEB SOLN NEB SCH ×2 (01:42→07:38)
[2016-07-23 06:00] VITALS: BP 97/54
[2016-07-23 06:42] LABS: BASO % 0.3 % (0.0-1.0); EOS % 0.6 % (0.0-3.0); LARGE UNSTAINED CELL # 0.2 K/mm3 (0.0-0.4); LARGE UNSTAINED CELL % 2.4 % (0.0-4.0); LYMPH # 1.2 K/mm3 (1.5-4.5); LYMPH % 14.9 % (24.0-44.0); MEAN CORPUSCULAR HEMOGLOBIN 33.6 pg (27.0-33.0); MEAN CORPUSCULAR HGB CONC 32.8 g/dl (32.0-36.5); MEAN CORPUSCULAR VOLUME 102.7 fl (80.0-96.0); MONO # 0.5 K/mm3 (0.0-0.8); MONO % 5.8 % (0.0-5.0); NEUTROPHILS # 6.3 K/mm3 (1.8-7.7); PLATELET COUNT, AUTOMATED 223 k/mm3 (150-450); RED CELL DISTRIBUTION WIDTH 13.2 % (11.5-14.5); WHITE BLOOD COUNT 8.3 K/mm3 (4.0-10.0)
[2016-07-23] MEDS ORDERED: PRED10PA PO (07:12)
[2016-07-23 07:20] LABS: ANION GAP 6 MEQ/L (8-16); BLOOD UREA NITROGEN 21 MG/DL (7-18); CALCIUM LEVEL 9.2 MG/DL (8.8-10.2); CARBON DIOXIDE LEVEL 34 MEQ/L (21-32); CHLORIDE LEVEL 99 MEQ/L (98-107); CREATININE FOR GFR 0.69 MG/DL (0.70-1.30); GLOMERULAR FILTRATION RATE > 60.0 (>49); GLUCOSE, FASTING 85 MG/DL (80-110); POTASSIUM SERUM 4.3 MEQ/L (3.5-5.1); SODIUM LEVEL 139 MEQ/L (136-145)
[2016-07-23] MEDS: ADVAIR HFA 115/21 INHALER INH SCH (07:38)
[2016-07-23] MEDS: PRENATAL VITAMIN TAB PEG SCH (09:01)
[2016-07-23] MEDS: THIAMINE 100 MG TAB PEG SCH (09:01)
[2016-07-23] MEDS: predniSONE 20 MG TAB PEG SCH (09:01)
[2016-07-23] MEDS: ASPIRIN 81 MG ENTERIC TAB PEG SCH (09:01)
[2016-07-23] MEDS: ENOXAPARIN 40 MG/0.4 ML SYRINGE (J1650) SC SCH (09:02)
--- NOTE | 2016-07-23 16:29 | DSES ---
DATE OF ADMISSION: 07/20/2016 DATE OF DISCHARGE: 07/23/2016 DISCHARGE DIAGNOSIS: Decompensated chronic obstructive pulmonary disease (COPD). SECONDARY DIAGNOSES: 1. Bronchiectasis. 2. Chronic respiratory failure. 3. Interstitial pulmonary fibrosis. 4. Gastroesophageal reflux disease. 5. Jaw asymmetry. 6. Oral cancer. 7. History of aspiration pneumonia. 8. Protein calorie malnutrition. HOSPITAL COURSE: The patient is a 66-year-old man who initially presented to the emergency room with increased shortness of breath for one week along with some chills and abdominal pain. It was felt that the patient's symptoms were secondary to decompensated COPD. He is normally on a rotating cycle of antibiotics in regards to his bronchiectasis. During his stay here he did not receive any additional antibiotics. He did receive increases doses of steroids which was tapered. The patient did have a prompt improvement in his symptoms and he was returned back to his baseline respiratory status. He did have a fever a the time of presentation however. Several days he was afebrile prior to discharge. SUBJECTIVE: Today, the patient reports he is feeling well. He has no complaints, no shortness of breath, chest pain, fevers, chills, nausea, vomiting, or abdominal pain. OBJECTIVE: VITAL SIGNS: Temperature 96.5, pulse 90, respiratory rate 20, blood pressure 129/71, oxygen saturation 94% on 3 liters. GENERAL: He is a frail, elderly man with jaw deformity sitting in a recliner. He is in no distress. HEENT: Cranial nerves 2 through 12 are grossly intact. Chronic facial assemetry. Moist mucous membranes. No elevation in central venous pressure. CARDIOVASCULAR: S1, S2 regular. RESPIRATORY: He has fairly good air movement. Prolonged inspiratory phase. ABDOMINAL: Percutaneous endoscopic gastrostomy (PEG) tube in place. Clean, dry and intact. EXTREMITIES: No clubbing, cyanosis, or edema. LABORATORY STUDIES: WBC 8.3, hemoglobin 13.8, hematocrit 42.1, platelet count 223. Chemistry panel: Sodium 139, potassium 4.3, chloride 99, bicarbonate 34, BUN 21, creatinine 0.6. Blood cultures from 07/20/2016 were negative. A flu swab from 07/20/2016 was also negative. IMAGING: The patient did have a CT scan of his chest which revealed chronic bronchiectasis and atelectatic changes in the lower lobes bilaterally, left greater than right. Evidence of COPD and overall hyperinflation but no new infiltrate was seen. ASSESSMENT/PLAN: This is a 66-year-old man with decompensated COPD. 1. Decompensated COPD. The patient has been on Prednisone 40 mg daily. His symptoms have had a prompt resolution. He will be discharged on a tapering dose of prednisone back to his chronic home dose of 10 mg daily. His symptoms have improved. His clinical status is improved back to his baseline. 2. Fever. Unclear etiology. It was a one-time spike. He has not had any recurrence. Cultures have been negative. Imaging does not reveal any acute infiltrate. We do not feel that he having a flare up of his bronchiectasis. 3. Bronchiectasis. Patient is to continue his chronic antibiotics suppressive therapy, one week each month. 4. Interstitial pulmonary fibrosis. Chronic and stable. 5. Gastroesophageal reflux disease. Patient is on Pepcid. 6. 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 7. History of aspiration pneumonia. Patient is status-post a PEG tube. He takes some water by mouth but otherwise his nutrition is via the PEG tube including vitamins. 8. Deep venous thrombosis (DVT) prophylaxis. Patient has been on Lovenox. DISPOSITION: The patient is being discharged home. He is to followup with his primary care provider (PCP) within seven days, followup with pulmonology as scheduled. His activity and diet are as prior to admission. He has been advised to return to the emergency room (ER) should his symptoms worsen. MEDICATIONS: At the time of discharge: - prednisone 10 mg daily 4 tabs by mouth for 1 day, then 2 tabs by mouth daily for 3 days, and then resume his usual home dose - Tylenol 650 mg every 4 hours as needed for pain - albuterol sulfate nebulizer 2.5 mg inhaled three times a day as needed for respiratory distress - Ventolin HFA 200 two puffs every 4 hours as needed for shortness of breath - Augmentin 875-125 twice a day set for 7 days one month after the Cipro - aspirin 81 mg daily - ciprofloxacin 500 mg twice a day via PEG tube for 7 days one month after the Bactrim - multivitamin 1 tablet PEG tube daily - prednisone 10 mg daily - Zantac 150 mg at night - Advair 115-21 one puff inhaled twice a day as needed - Thiamine 150 mg PEG tube daily - Bactrim 800-160 twice a day for 7 days one month after the Augmentin Greater than 30 minutes spent organizing disposition.
== END 2016-07-23 10:19 | disposition home or self-care (01) ==
LOC: M ED 05:07 → M ED INP 12:03 → M MSPAV 17:01
PROVIDERS: ADMIT Internal Medicine Nephrology; ATTEND Internal Medicine Nephrology
DX: J44.1 Chronic obstructive pulmonary disease with (acute) exacerbation (principal); J96.11 Chronic respiratory failure with hypoxia; J96.22 Acute and chronic respiratory failure with hypercapnia; J84.10 Pulmonary fibrosis, unspecified; K21.9 Gastro-esophageal reflux disease without esophagitis; M26.12 Other jaw asymmetry; Z85.818 Personal history of malignant neoplasm of other sites of lip, oral cavity, and pharynx; Z87.01 Personal history of pneumonia (recurrent); E46 Unspecified protein-calorie malnutrition; R50.9 Fever, unspecified; R10.9 Unspecified abdominal pain; M48.06 Spinal stenosis, lumbar region; Z87.891 Personal history of nicotine dependence; Z79.899 Other long term (current) drug therapy; Z79.51 Long term (current) use of inhaled steroids; Z79.2 Long term (current) use of antibiotics; Z79.82 Long term (current) use of aspirin; Z79.52 Long term (current) use of systemic steroids; Z88.1 Allergy status to other antibiotic agents; Z99.81 Dependence on supplemental oxygen; Z93.1 Gastrostomy status; Z92.3 Personal history of irradiation
CPT/HCPCS: 36415; 36600; 71020; 71250; 80048; 82803; 83880; 85025; 87040; 87804; 93005; 93041; 94640; 96365; 96372; 99285; G0378; J1650; J1956

== ENCOUNTER 2016-08-30 10:28 | Emergency (ER) | payer MEDICARE, OTHER ==
[2016-08-30 11:02] LABS: ABG BASE EXCESS 5.3 (-2.0-2.0); ABG DEVICE NASAL CANN; ABG HCO3 31.1 MEQ/L (22.0-26.0); ABG PARTIAL PRESSURE CO2 50.1 mmHg (35.0-45.0); ABG STANDARD HCO3 29.1 MEQ/L (22.0-26.0); ABG TOTAL CO2 32.7 MEQ/L (23.0-31.0); ABG pH (ARTERIAL) 7.411 UNITS (7.350-7.450)
--- NOTE | 2016-08-30 11:19 | REP ---
Clinical: Chest pain. Dyspnea. Comparison: 07/20/2016. Findings: Mediastinum and cardiac silhouette are stable. Lung randall demonstrate chronic changes with superimposed left lower lobe infiltrate increased from prior examination. No obvious effusion. No pneumothorax. Skeletal structures intact. Impression: Diffuse chronic changes with superimposed increasing right lower lobe infiltrate. Signed by Ankush Galvan MD 08/30/2016 11:11 A
[2016-08-30 11:29] LABS: ALBUMIN 3.3 GM/DL (3.2-5.2); ALKALINE PHOSPHATASE 220 U/L (45-117); ALT/SGPT 57 U/L (12-78); ANION GAP 7 MEQ/L (8-16); AST/SGOT 43 U/L (15-37); BILIRUBIN,DIRECT < 0.1 MG/DL (0.0-0.2); BILIRUBIN,TOTAL 0.2 MG/DL (0.2-1.0); BLOOD UREA NITROGEN 21 MG/DL (7-18); CALCIUM LEVEL 9.1 MG/DL (8.8-10.2); CARBON DIOXIDE LEVEL 33 MEQ/L (21-32); CHLORIDE LEVEL 98 MEQ/L (98-107); CREATININE FOR GFR 0.99 MG/DL (0.70-1.30); GLOMERULAR FILTRATION RATE > 60.0 (>49); GLUCOSE, FASTING 189 MG/DL (80-110); INR 0.94; POTASSIUM SERUM 4.2 MEQ/L (3.5-5.1); SODIUM LEVEL 138 MEQ/L (136-145); TOTAL PROTEIN 7.4 GM/DL (6.4-8.2)
[2016-08-30 11:30] LABS: MEAN CORPUSCULAR HEMOGLOBIN 34.6 pg (27.0-33.0); MEAN CORPUSCULAR HGB CONC 33.6 g/dl (32.0-36.5); MEAN CORPUSCULAR VOLUME 103.2 fl (80.0-96.0); PLATELET COUNT, AUTOMATED 225 k/mm3 (150-450); RED CELL DISTRIBUTION WIDTH 13.9 % (11.5-14.5); WHITE BLOOD COUNT 12.9 K/mm3 (4.0-10.0)
[2016-08-30 11:31] LABS: DIFF SLIDE NUMBER 131
[2016-08-30 11:36] LABS: BASOPHILS 1 % (0-4); EOSINOPHILS 2 % (0-5)
[2016-08-30] MEDS ORDERED: BACTRIM 160MG/800MG DS TAB As Ordered ONE (15:09)
--- NOTE | 2016-08-30 15:15 | EDDOCDS ---
Physician Documentation [facility] Name: Jadon Grove Age: 66 yrs Sex: Male : 1950 Arrival Date: 08/30/2016 Time: 10:28 Bed 5 Private MD: Teresa Azar E Disposition: 08/30/16 15:06 Discharged to Home/Self Care. Impression: Pneumonia in diseases classified elsewhere. - Condition is Stable. - Discharge Instructions: Pneumonia, Adult. - Prescriptions for Bactrim DS 800- 160 mg Oral Tablet - take 1 tablet by ORAL route every 12 hours for 7 days; 14 tablet. - Medication Reconciliation, Local Pharmacy Hours form. - Follow up: Esequiel Nance MD; When: Call to arrange an appointment; Reason: Continuance of care. - Problem is new. - Symptoms are unchanged. Historical: - Allergies: Flagyl (Rash); - Home Meds: 1. albuterol sulfate 2.5 mg/0.5 mL Inhl nebu 3 times per day 2. albuterol sulfate 90 mcg/actuation Inhl aepb 2 puffs every 4 hours As needed 3. aspirin 81 mg Oral tab 1 tab once daily 4. Oxygen 3LNC 5. Vitamin Oral tab 1 tab once daily 6. prednisone 10 mg Oral tab once daily 7. ranitidine HCl 75 mg Oral tab 1 tab once daily 8. Advair Diskus 115/21 mcg/dose Inhl dsdv 1 puff 2 times per day 9. rotates cipro, augmentin and bactrim ea month taking 1 for 7 days starting on the 1st - PMHx: Cancer Right Tonsil; COPD; Pneumonia; - PSHx: oral surgery; right foot surgery; Cataract Surgery- Bilateral; - Social history: No barriers to communication noted, The patient speaks fluent Portuguese, Speaks appropriately for age, Smoking status: Patient states former smoker of tobacco. - Family history: Not pertinent. - : The pt / caregiver states he / she is not on anticoagulants. Home medication list is obtained from family members. - Exposure Risk Screening:: None identified. Vital Signs: 08/30 10:30 BP 90 / 53; Pulse 110; Resp 20; Temp 97.7(O); Pulse Ox 78% on 3 lpm NC; Weight 72.57 kg ct3 / 159.99 lbs (R); Height 6 ft. 1 in. (185.42 cm) (R); Pain 5/10; 10:38 BP 92 / 60 (auto/); pml 10:39 Pulse 108 MON; Pulse Ox 75% ; pml 10:50 BP 107 / 72 (auto/); pml 10:51 Pulse 102 MON; Pulse Ox 91% ; pml 11:05 BP 92 / 66 (auto/); pml 11:06 Pulse 98 MON; Pulse Ox 90% ; pml 11:20 BP 96 / 64 (auto/); pml 11:21 Pulse 96 MON; Pulse Ox 92% ; pml 11:35 BP 101 / 65 (auto/); pml 11:36 Pulse 90 MON; Pulse Ox 93% ; pml 11:50 BP 88 / 56 (auto/); pml 11:51 Pulse 90 MON; Pulse Ox 95% ; pml 12:05 BP 90 / 55 (auto/); pml 12:06 Pulse 86 MON; Pulse Ox 94% ; pml 12:20 BP 99 / 59 (auto/); pml 12:21 Pulse 84 MON; Pulse Ox 96% ; pml 12:35 BP 102 / 59 (auto/); pml 12:36 Pulse 84 MON; Pulse Ox 96% ; pml 12:50 BP 97 / 59 (auto/); pml 12:51 Pulse 80 MON; Pulse Ox 96% ; pml 13:05 BP 104 / 62 (auto/); pml 13:06 Pulse 82 MON; Pulse Ox 96% ; pml 13:20 BP 110 / 72 (auto/); pml 13:21 Pulse 86 MON; Pulse Ox 94% ; pml 13:35 BP 100 / 71 (auto/); pml 13:36 Pulse 86 MON; Pulse Ox 92% ; pml 13:50 BP 108 / 71 (auto/); pml 13:51 Pulse 84 MON; Pulse Ox 91% ; pml 14:05 BP 98 / 58 (auto/); pml 14:06 Pulse 82 MON; Pulse Ox 87% ; pml 14:20 BP 95 / 58 (auto/); pml 14:20 Pulse 82 MON; Pulse Ox 91% ; pml 14:35 BP 89 / 52 (auto/); pml 14:36 Pulse 84 MON; Pulse Ox 91% ; pml 14:50 BP 125 / 63 (auto/); pml 14:51 Pulse 82 MON; Pulse Ox 91% ; pml 15:05 BP 117 / 66 (auto/); pml 15:06 Pulse 84 MON; Pulse Ox 92% ; pml 15:13 BP 117 / 73; Pulse 83; Resp 18; Temp 97.9; Pulse Ox 92% on 3 lpm NC; Pain 0/10; pml 10:30 Body Mass Index 21.11 (72.57 kg, 185.42 cm) ct3 MDM: 10:49 -Blood Culture (Adults Only), peripheral from different site, or from device/port/PICC fg etc. if present ordered. 10:49 Call Respiratory ordered. fg 10:49 Furniture Finisher Helper/Pulse Ox/q 15 min VS ordered. fg 10:49 Large bore IV x 2 ordered. fg 10:49 Oxygen at 4L/Min NC or Home dosage ordered. fg 10:49 Intake and Output Hourly ordered. fg 10:50 Call Respiratory complete. ar3 10:50 -Blood Culture (Adults Only), peripheral from different site, or from device/port/PICC ar3 etc. if present complete. 10:50 -Arterial Blood Gas Ordered. EDMS 10:50 CBC with Diff Ordered. EDMS 10:50 Lactic Acid (Mchugh tube on ice) Ordered. EDMS 10:50 Liver Profile Ordered. EDMS 10:50 MED Profile Ordered. EDMS 10:50 PT/INR Ordered. EDMS 10:50 PTT Ordered. EDMS 10:50 Urinalysis Ordered. EDMS 10:51 -Blood Culture Ordered. EDMS 10:51 Urine Culture Ordered. EDMS 10:51 Chest, 1 View Ordered. EDMS 10:51 ECG WITH READING ER PHYS+CARDIAG ordered. EDMS 10:52 BLOOD CULTURES Ordered. EDMS 11:05 BNP Ordered. EDMS 11:16 Financial registration complete. [email or web address] 11:18 [facility] [place] was scanned into [employer] and attached to record. [email or web address] 11:32 DIFFERENTIAL NO CHARGE Ordered. EDMS 11:32 PLATELET ESTIMATE Ordered. EDMS 11:53 NS 0.9% 1000 ml IV at bolus once ordered. fg 15:05 Trimethoprim-Sulfamethoxazole 160 mg-800 mg (DS) 1 tabs PO once ordered. fg Administered Medications: 11:55 Drug: NS 0.9% 1000 ml [sodium chloride 0.9 % injection syringe] Route: IV; Rate: bolus; pml Site: left antecubital; 13:10 Follow up: IV Status: Completed infusion; IV Intake: 1000ml pml 15:12 Drug: Trimethoprim-Sulfamethoxazole 1 tabs [sulfamethoxazole 800 mg-trimethoprim 160 mg pml tablet (1 tabs)] Route: PO; Signatures: Dispatcher [employer] Colleen Gore, MAJOR SALES ASSOCIATE MAJOR SALES ASSOCIATE ar3 Liudmila Cabello,RN RN pml Queta Byers MD MD fg Sorenson, Kimberly, Reg Reg [email or web address] The chart was reviewed and I authenticate all verbal orders and agree with the evaluation and treatment provided.Corrections: (The following items were deleted from the chart) 10:53 10:44 Home Meds: rotates cipro, augmentin and bactrim every month - no abx this week; pml pml 11:10 10:49 Set up for triple lumen central Iine placement ordered. fg pml 11:14 10:49 Strep Screen, Nursing ordered. [facility] Attachments: 11:18 [facility] [place] Agreement [email or web address] MTDD
--- NOTE | 2016-08-30 15:15 | EDDOCDS ---
Nurse's Notes [facility] Facility Name: Jadon Grove Age: 66 yrs Sex: Male : 1950 Arrival Date: 08/30/2016 Time: 10:28 Bed 5 Private MD: Teresa Azar E Diagnosis: Pneumonia in diseases classified elsewhere Presentation: 08/30 10:35 Presenting complaint: Patient states: back pain and shortness of breath for the last pml few days. Acute neurological deficits are not present. 10:35 Acuity: LORIN Level 2 pml 10:38 Red Flag criteria, patient assessed and taken directly to a bed. dsf 10:40 Mechanism of Injury: No Mechanism of Injury. Adult Sepsis Screening: The patient does pml not have new or worsening altered mentation. Patient has a respiratory rate of greater than or equal to 22 (1 point). Systolic blood pressure is less than or equal to 100 (1 point). Patient has a qSOFA score of 2. Patient is currently on antibiotics for infection- Positive Sepsis Screen. Notified Queta Byers MD Patient made LORIN Level 2. Patient placed in exam room. Charge nurse notified. Suicide/Homicide risk assessment- the patient denies having any suicidal and/or homicidal ideations and does not present with any other emotional, behavioral or mental health complaints. Status: Patient is not a community service representative or dependent. Transition of care: patient was not received from another setting of care. 10:40 Method Of Arrival: Walkin/Carried/Asstd pml Triage Assessment: 11:07 General: Appears in no apparent distress, comfortable, Behavior is appropriate for age, pml cooperative. Pain: Denies pain. The patient is triaged at the bedside. See Assessment in Nurses Notes section of ED record. Neurological: Level of Consciousness is awake, alert, Oriented to person, place, time. Cardiovascular: Capillary refill < 3 seconds Rhythm is sinus rhythm No ectopy. Respiratory: Airway is patent Respiratory effort is even, unlabored, Respiratory pattern is regular, Breath sounds with crackles bilaterally. in right middle lobe, left lower lobe and right lower lobe. GI: Abdomen is non- distended. Derm: Skin is pink, warm & dry. Musculoskeletal: Circulation, motion, and sensation intact Capillary refill < 3 seconds. Historical: - Allergies: Flagyl (Rash); - Home Meds: 1. albuterol sulfate 2.5 mg/0.5 mL Inhl nebu 3 times per day 2. albuterol sulfate 90 mcg/actuation Inhl aepb 2 puffs every 4 hours As needed 3. aspirin 81 mg Oral tab 1 tab once daily 4. Oxygen 3LNC 5. Vitamin Oral tab 1 tab once daily 6. prednisone 10 mg Oral tab once daily 7. ranitidine HCl 75 mg Oral tab 1 tab once daily 8. Advair Diskus 115/21 mcg/dose Inhl dsdv 1 puff 2 times per day 9. rotates cipro, augmentin and bactrim ea month taking 1 for 7 days starting on the 1st - PMHx: Cancer Right Tonsil; COPD; Pneumonia; - PSHx: oral surgery; right foot surgery; Cataract Surgery- Bilateral; - Social history: No barriers to communication noted, The patient speaks fluent Greenlandic, Speaks appropriately for age, Smoking status: Patient states former smoker of tobacco. - Family history: Not pertinent. - : The pt / caregiver states he / she is not on anticoagulants. Home medication list is obtained from family members. - Exposure Risk Screening:: None identified. Screenin:09 Screening information is obtained from the patient. Fall risk: No risks identified. pml Assistance ADL's: requires no assistance with activities of daily living. Abuse/DV Screen: The patient / caregiver reports he/she is: not in a situation that causes fear, pain or injury. Nutritional screening: No deficits noted. Advance Directives: Currently, there is no health care proxy. home support is adequate. Assessment: 11:09 General: see triage note. pml 11:44 Pain: Location: right posterior aspect of neck and right lateral aspect of neck Pain pml currently is 8 out of 10 on a pain scale. Neurological: Level of Consciousness is awake, alert, Oriented to person, place, time. Cardiovascular: Capillary refill < 3 seconds. Respiratory: Airway is patent Respiratory effort is unlabored. Derm: Skin is pink, warm & dry. 12:05 General: pt reports feeling better. Spo2 noted to be 96% on 15lpm NRB - adjusted to pml 10lpm NRB and pt tolerating well. will continue to monitor. sinus rhythm on monitor without ectopy. skin p/w/d. IVF infusing as ordered. 13:26 General: Appears in no apparent distress, comfortable, Behavior is appropriate for age, pml cooperative. Neurological: Level of Consciousness is awake, alert, Oriented to person, place, time. Cardiovascular: Capillary refill < 3 seconds. Respiratory: Airway is patent Respiratory effort is even, unlabored. Derm: Skin is pink, warm & dry. 14:23 General: Resting on stretcher, resps easy and unlabored, skin p/w/d. voices no pml complaints. sinus rhythm on monitor. . 14:45 General: o2 titrated to home dose of 3lpm. pt tolerating well with spo2 in low 90s. pml 15:04 General: hospitalist in to see patient. pml 15:12 General: Appears in no apparent distress, Behavior is appropriate for age, cooperative. pml Pain: Denies pain. Neurological: Level of Consciousness is awake, alert, Oriented to person, place, time. Cardiovascular: Capillary refill < 3 seconds. Respiratory: Airway is patent Respiratory effort is even, unlabored. Derm: Skin is pink, warm & dry. Vital Signs: 10:30 BP 90 / 53; Pulse 110; Resp 20; Temp 97.7(O); Pulse Ox 78% on 3 lpm NC; Weight 72.57 kg ct3 (R); Height 6 ft. 1 in. (185.42 cm) (R); Pain 5/10; 10:38 BP 92 / 60 (auto/); pml 10:39 Pulse 108 MON; Pulse Ox 75% ; pml 10:50 BP 107 / 72 (auto/); pml 10:51 Pulse 102 MON; Pulse Ox 91% ; pml 11:05 BP 92 / 66 (auto/); pml 11:06 Pulse 98 MON; Pulse Ox 90% ; pml 11:20 BP 96 / 64 (auto/); pml 11:21 Pulse 96 MON; Pulse Ox 92% ; pml 11:35 BP 101 / 65 (auto/); pml 11:36 Pulse 90 MON; Pulse Ox 93% ; pml 11:50 BP 88 / 56 (auto/); pml 11:51 Pulse 90 MON; Pulse Ox 95% ; pml 12:05 BP 90 / 55 (auto/); pml 12:06 Pulse 86 MON; Pulse Ox 94% ; pml 12:20 BP 99 / 59 (auto/); pml 12:21 Pulse 84 MON; Pulse Ox 96% ; pml 12:35 BP 102 / 59 (auto/); pml 12:36 Pulse 84 MON; Pulse Ox 96% ; pml 12:50 BP 97 / 59 (auto/); pml 12:51 Pulse 80 MON; Pulse Ox 96% ; pml 13:05 BP 104 / 62 (auto/); pml 13:06 Pulse 82 MON; Pulse Ox 96% ; pml 13:20 BP 110 / 72 (auto/); pml 13:21 Pulse 86 MON; Pulse Ox 94% ; pml 13:35 BP 100 / 71 (auto/); pml 13:36 Pulse 86 MON; Pulse Ox 92% ; pml 13:50 BP 108 / 71 (auto/); pml 13:51 Pulse 84 MON; Pulse Ox 91% ; pml 14:05 BP 98 / 58 (auto/); pml 14:06 Pulse 82 MON; Pulse Ox 87% ; pml 14:20 BP 95 / 58 (auto/); pml 14:20 Pulse 82 MON; Pulse Ox 91% ; pml 14:35 BP 89 / 52 (auto/); pml 14:36 Pulse 84 MON; Pulse Ox 91% ; pml 14:50 BP 125 / 63 (auto/); pml 14:51 Pulse 82 MON; Pulse Ox 91% ; pml 15:05 BP 117 / 66 (auto/); pml 15:06 Pulse 84 MON; Pulse Ox 92% ; pml 15:13 BP 117 / 73; Pulse 83; Resp 18; Temp 97.9; Pulse Ox 92% on 3 lpm NC; Pain 0/10; pml 10:30 Body Mass Index 21.11 (72.57 kg, 185.42 cm) ct3 Vitals: 10:30 Log In Time: August 30, 2016 at 10:28. ct3 10:30 RN notified that patient meets Red Flag criteria. ct3 ED Course: 10:30 Patient visited by Lavern De La Rosa PCA. ct3 10:30 Teresa Azar is Private Physician. ct3 10:30 Patient moved to Waiting ct3 10:34 Liudmila Cabello,RN is Primary Nurse. ct3 10:34 Patient moved to 5 ct3 10:38 Triage Initiated pml 10:42 Queta Byers MD is Attending Physician. fg 10:49 Patient visited by Queta Byers MD. fg 10:58 -Arterial Blood Gas Sent. cs15 11:09 The patient / caregiver is instructed regarding the plan of care and ED course. Patient pml has correct armband on for positive identification. Placed in gown. Bed in low position. Call light in reach. Side rails up X2. refrigerated national truck driver on. Pulse ox on. NIBP on. 11:09 Inserted peripheral IV: 20gauge IV in right forearm and blood collected. Patient pml tolerated the procedure well. O2 via non-rebreather \T\ 15L/min. 11:10 EKG done. (by ED staff). Reviewed by Queta Byers MD. dem1 11:12 Patient visited by Lauren Blankenship. dem1 11:18 [facility] Payment Agreement was scanned into [employer] and attached to record. [email or web address] 11:45 Patient visited by Liudmila Cabello,LISSA. pml 11:46 Chest, 1 View Returned. EDMS 12:06 Patient visited by Liudmila Cabello RN. pml 13:27 Patient visited by Liudmila Cabello,LISSA. pml 14:11 DIFFERENTIAL NO CHARGE Sent. pml 14:24 Patient visited by Liudmila Cabello RN. pml 15:05 Esequiel Nance MD is Referral Physician. fg 15:13 Discontinued lock intact, bleeding controlled, pressure dressing applied, No pml redness/swelling at site. No procedures done that require assistance. Administered Medications: 11:55 Drug: NS 0.9% 1000 ml [sodium chloride 0.9 % injection syringe] Route: IV; Rate: bolus; pml Site: left antecubital; 13:10 Follow up: IV Status: Completed infusion; IV Intake: 1000ml pml 15:12 Drug: Trimethoprim-Sulfamethoxazole 1 tabs [sulfamethoxazole 800 mg-trimethoprim 160 mg pml tablet (1 tabs)] Route: PO; Intake: 13:10 IV: 1000.00ml; Total: 1000.00ml. pml RT: 10:58 ABG's drawn from right radial artery allens test done and positive pressure held for 5 cs15 minutes no bleeding noted pressure bandage applied specimen sent pt. tolerated well. O2 via non-rebreather \T\ 15L/min. Respiratory: Respiratory effort is labored, Respiratory pattern is regular Breath sounds with crackles bilaterally. in left posterior lower lobe and right posterior lower lobe Breath sounds are diminished bilaterally. Order Results: Lab Order: -Arterial Blood Gas; SPEC'M 08/30/16 10:56 Test: ABG pH (ARTERIAL); Value: 7.411; Range: 7.350-7.450; Units: UNITS; Status: F Test: ABG PARTIAL PRESSURE CO2; Value: 50.1; Range: 35.0-45.0; Abnormal: Above high normal; Units: mmHg; Status: F Test: ABG PARTIAL PRESSURE O2; Value: 74.0; Range: 75.0-100.0; Abnormal: Below low normal; Units: mmHg; Status: F Test: ABG TOTAL CO2; Value: 32.7; Range: 23.0-31.0; Abnormal: Above high normal; Units: MEQ/L; Status: F Test: ABG HCO3; Value: 31.1; Range: 22.0-26.0; Abnormal: Above high normal; Units: MEQ/L; Status: F Test: ABG BASE EXCESS; Value: 5.3; Range: -2.0-2.0; Abnormal: Above high normal; Status: F Test: ABG STANDARD HCO3; Value: 29.1; Range: 22.0-26.0; Abnormal: Above high normal; Units: MEQ/L; Status: F Test: ABG O2 SATURATION; Value: 95.0; Range: 95.0-99.0; Units: %; Status: F Test: ABG DEVICE; Value: NASAL JUDSON; Status: F Lab Order: CBC with Diff; SPEC'M 08/30/16 11:00 Test: WHITE BLOOD COUNT; Value: 12.9; Range: 4.0-10.0; Abnormal: Above high normal; Units: K/mm3; Status: F Test: RED BLOOD COUNT; Value: 4.32; Range: 4.30-6.10; Units: M/mm3; Status: F Test: HEMOGLOBIN; Value: 15.0; Range: 14.0-18.0; Units: g/dl; Status: F Test: HEMATOCRIT; Value: 44.6; Range: 42.0-52.0; Units: %; Status: F Test: MEAN CORPUSCULAR VOLUME; Value: 103.2; Range: 80.0-96.0; Abnormal: Above high normal; Units: fl; Status: F Test: MEAN CORPUSCULAR HEMOGLOBIN; Value: 34.6; Range: 27.0-33.0; Abnormal: Above high normal; Units: pg; Status: F Test: MEAN CORPUSCULAR HGB CONC; Value: 33.6; Range: 32.0-36.5; Units: g/dl; Status: F Test: RED CELL DISTRIBUTION WIDTH; Value: 13.9; Range: 11.5-14.5; Units: %; Status: F Test: PLATELET COUNT, AUTOMATED; Value: 225; Range: 150-450; Units: k/mm3; Status: F Test: NEUTROPHILS; Value: 83; Range: 35-75; Abnormal: Above high normal; Units: %; Status: F Test: LYMPHOCYTES; Value: 6; Range: 16-52; Abnormal: Below low normal; Units: %; Status: F Test: MONOCYTES; Value: 6; Range: 0-8; Units: %; Status: F Test: EOSINOPHILS; Value: 2; Range: 0-5; Units: %; Status: F Test: BASOPHILS; Value: 1; Range: 0-4; Units: %; Status: F Test: ATYPICAL LYMPH; Value: 2; Range: 0-5; Units: %; Status: F Test: MACROCYTOSIS; Value: 1+; Status: F Lab Order: Lactic Acid (Mchugh tube on ice); [facility] 08/30/16 11:00 Test: LACTIC ACID SEPSIS PROTOCOL; Value: 2.0; Range: 0.4-2.0; Units: MMOL/L; Status: F Lab Order: Liver Profile; [facility] 08/30/16 11:00 Test: AST/SGOT; Value: 43; Range: 15-37; Abnormal: Above high normal; Units: U/L; Status: F Test: ALT/SGPT; Value: 57; Range: 12-78; Units: U/L; Status: F Test: ALKALINE PHOSPHATASE; Value: 220; Range: 45-117; Abnormal: Above high normal; Units: U/L; Status: F Test: BILIRUBIN,TOTAL; Value: 0.2; Range: 0.2-1.0; Units: MG/DL; Status: F Test: BILIRUBIN,DIRECT; Value: < 0.1; Range: 0.0-0.2; Units: MG/DL; Status: F Test: TOTAL PROTEIN; Value: 7.4; Range: 6.4-8.2; Units: GM/DL; Status: F Test: ALBUMIN; Value: 3.3; Range: 3.2-5.2; Units: GM/DL; Status: F Test: ALBUMIN/GLOBULIN RATIO; Value: 0.80; Range: 1.00-1.93; Abnormal: Below low normal; Status: F Lab Order: MED Profile; SPEC'M 08/30/16 11:00 Test: GLUCOSE, FASTING; Value: 189; Range: 80-110; Abnormal: Above high normal; Units: MG/DL; Status: F Test: BLOOD UREA NITROGEN; Value: 21; Range: 7-18; Abnormal: Above high normal; Units: MG/DL; Status: F Test: CREATININE FOR GFR; Value: 0.99; Range: 0.70-1.30; Units: MG/DL; Status: F Test: GLOMERULAR FILTRATION RATE; Value: > 60.0; Range: >49; Status: F Test: SODIUM LEVEL; Value: 138; Range: 136-145; Units: MEQ/L; Status: F Test: POTASSIUM SERUM; Value: 4.2; Range: 3.5-5.1; Units: MEQ/L; Status: F Test: CHLORIDE LEVEL; Value: 98; Range: 98-107; Units: MEQ/L; Status: F Test: CARBON DIOXIDE LEVEL; Value: 33; Range: 21-32; Abnormal: Above high normal; Units: MEQ/L; Status: F Test: ANION GAP; Value: 7; Range: 8-16; Abnormal: Below low normal; Units: MEQ/L; Status: F Test: CALCIUM LEVEL; Value: 9.1; Range: 8.8-10.2; Units: MG/DL; Status: F Test Note: ; Units are mL/min/1.73 m2 Chronic Kidney Disease Staging per NKF: Stage I & II GFR >=60 Normal to Mildly Decreased Stage III GFR 30-59 Moderately Decreased Stage IV GFR 15-29 Severely Decreased Stage V GFR <15 Very Little GFR Left ESRD GFR <15 on PIG FARM MANAGER Lab Order: PT/INR; SPEC'08/30/16 11:00 Test: PROTHROMBIN TIME; Value: 12.7; Range: 12.3-14.5; Units: SECONDS; Status: F Test: INR; Value: 0.94; Status: F Test Note: ; THERAPUTIC HUMAN INR VALUES INDICATIONS NORMAL RANGES PROPHYLAXIS/TREATMENT OF: VENOUS THROMBOSIS 2.0-3.0 PULMONARY EMBOLISM 2.0-3.0 PREVENTION OF SYSTEMIC EMBOLISM FROM: TISSUE HEART VALVES 2.0-3.0 ACUTE MYOCARDIAL INFARCTION 2.0-3.0 VALVULAR HEART DISEASE 2.0-3.0 ATRIAL FIBRILLATION 2.0-3.0 MECHANICAL VALVES(HIGH RISK) 2.5-3.5 RECURRENT MYOCARDIAL INFARCTION 2.5-3.5 Lab Order: PTT; SPEC'M 08/30/16 11:00 Test: PARTIAL THROMBOPLASTIN TIME; Value: 32.0; Range: 26.6-37.1; Units: SECONDS; Status: F Lab Order: Urinalysis; SPEC'M 08/30/16 13:46 Test: APPEARANCE, URINE; Value: HAZY; Range: CLEAR; Status: F Test: COLOR, URINE; Value: VELIA; Range: YELLOW; Status: F Test: PH,URINE; Value: 7.0; Range: 5.0-9.0; Units: UNITS; Status: F Test: SPECIFIC GRAVITY URINE AUTO; Value: 1.016; Range: 1.002-1.035; Status: F Test: PROTEIN, URINE AUTO; Value: NEGATIVE; Range: NEGATIVE; Units: mg/dL; Status: F Test: GLUCOSE, URINE (UA) AUTO; Value: NEGATIVE; Range: NEGATIVE; Units: mg/dL; Status: F Test: KETONE, URINE AUTO; Value: NEGATIVE; Range: NEGATIVE; Units: mg/dL; Status: F Test: UROBILINOGEN, URINE AUTO; Value: 0.2; Range: 0.0-2.0; Units: mg/dL; Status: F Test: BILIRUBIN, URINE AUTO; Value: NEGATIVE; Range: NEGATIVE; Status: F Test: NITRITE, URINE AUTO; Value: NEGATIVE; Range: NEGATIVE; Status: F Test: LEUKOCYTE ESTERASE, URINE AUTO; Value: NEGATIVE; Range: NEGATIVE; Status: F Test: BLOOD, URINE BLOOD; Value: NEGATIVE; Range: NEGATIVE; Status: F Test: WBC, URINE AUTO; Value: 1; Range: 0-3; Units: /HPF; Status: F Test: RBC, URINE AUTO; Value: 0; Range: 0-3; Units: /HPF; Status: F Test: BACTERIA, URINE AUTO; Value: NEGATIVE; Range: NEGATIVE; Status: F Test: SQUAMOUS EPITHELIAL CELL UR AU; Value: 0; Range: 0-6; Units: /HPF; Status: F Test: MUCUS, URINE; Value: SMALL; Range: NEGATIVE; Status: F Test: HYALINE CAST, URINE AUTO; Value: 1; Range: 0-1; Units: /LPF; Status: F Lab Order: BNP; SPEC'M 08/30/16 11:00 Test: BRAIN NATRIURETIC PEPTIDE; Value: 21.7; Range: <100; Units: PG/ML; Status: F Lab Order: PLATELET ESTIMATE; SPEC'M 08/30/16 11:00 Test: PLATELET ESTIMATE; Value: NORMAL; Range: NORMAL; Status: F Radiology Order: Chest, 1 View Test: Chest, 1 View REASON FOR EXAMINATION: Chest Pain; Clinical: Chest pain. Dyspnea.; ; Comparison: 07/20/2016.; ; Findings:; Mediastinum and cardiac silhouette are stable. Lung randall demonstrate chronic; changes with superimposed left lower lobe infiltrate increased from prior; examination. No obvious effusion. No pneumothorax. Skeletal structures; intact.; ; Impression:; Diffuse chronic changes with superimposed increasing right lower lobe; infiltrate.; ; ; Signed by; Ankush Galvan MD 08/30/2016 11:11 A; Outcome: 15:06 Discharge ordered by Provider. fg 15:13 Discharge Assessment: Patient awake, alert and oriented x 3. No cognitive and/or pml functional deficits noted. Patient verbalized understanding of disposition instructions. patient administered narcotics - no. The following High Risk Discharge criteria are identified: None. Discharged to home ambulatory. Condition: good Condition: stable. Discharge instructions given to patient, Instructed on discharge instructions, follow up and referral plans. medication usage, Demonstrated understanding of instructions, medications, Pt was receptive of discharge instructions/ teaching. Prescriptions given X 1. No special radiology studies were completed. Property sent home with patient. 15:14 Patient left the ED. pml Signatures: Dispatcher [employer] EDMS Lavern De La Rosa, MEDIA LIAISON OFFICER MEDIA LIAISON OFFICER ct3 Polina Yuan RN RN Liudmila Sullivan RN RN Lauren Hdz Frances, MD MD fg Romain Lee,RT RT cs15 Viviane Lang, Reg Reg [email or web address] Corrections: (The following items were deleted from the chart) 10:45 10:40 Adult Sepsis Screening: The patient does not have new or worsening altered pml mentation. Patient has a respiratory rate of greater than or equal to 22 (1 point). Systolic blood pressure is less than or equal to 100 (1 point). Patient has a qSOFA score of 2. No known or suspected infection- Negative Sepsis Screen pml 10:53 10:44 Home Meds: rotates cipro, augmentin and bactrim every month - no abx this week; pml pml MTDD
--- NOTE | 2016-08-30 19:46 | ECGEPIP ---
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
--- NOTE | 2016-09-01 16:15 | EDDOCDS ---
Nurse's Notes [facility] Name: Jadon Vallejo Age: 66 yrs Sex: Male : 1950 Arrival Date: 08/30/2016 Time: 10:28 Bed 5 Private MD: Teresa Azar E Diagnosis: Pneumonia in diseases classified elsewhere Presentation: 08/30 10:35 Presenting complaint: Patient states: back pain and shortness of breath for the last pml few days. Acute neurological deficits are not present. 10:35 Acuity: LORIN Level 2 pml 10:38 Red Flag criteria, patient assessed and taken directly to a bed. dsf 10:40 Mechanism of Injury: No Mechanism of Injury. Adult Sepsis Screening: The patient does pml not have new or worsening altered mentation. Patient has a respiratory rate of greater than or equal to 22 (1 point). Systolic blood pressure is less than or equal to 100 (1 point). Patient has a qSOFA score of 2. Patient is currently on antibiotics for infection- Positive Sepsis Screen. Notified Queta Byers MD Patient made LORIN Level 2. Patient placed in exam room. Charge nurse notified. Suicide/Homicide risk assessment- the patient denies having any suicidal and/or homicidal ideations and does not present with any other emotional, behavioral or mental health complaints. 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 Transition of care: patient was not received from another setting of care. 10:40 Method Of Arrival: Walkin/Carried/Asstd pml Triage Assessment: 11:07 General: Appears in no apparent distress, comfortable, Behavior is appropriate for age, pml cooperative. Pain: Denies pain. The patient is triaged at the bedside. See Assessment in Nurses Notes section of ED record. Neurological: Level of Consciousness is awake, alert, Oriented to person, place, time. Cardiovascular: Capillary refill < 3 seconds Rhythm is sinus rhythm No ectopy. Respiratory: Airway is patent Respiratory effort is even, unlabored, Respiratory pattern is regular, Breath sounds with crackles bilaterally. in right middle lobe, left lower lobe and right lower lobe. GI: Abdomen is non- distended. Derm: Skin is pink, warm & dry. Musculoskeletal: Circulation, motion, and sensation intact Capillary refill < 3 seconds. Historical: - Allergies: Flagyl (Rash); - Home Meds: 1. albuterol sulfate 2.5 mg/0.5 mL Inhl nebu 3 times per day 2. albuterol sulfate 90 mcg/actuation Inhl aepb 2 puffs every 4 hours As needed 3. aspirin 81 mg Oral tab 1 tab once daily 4. Oxygen 3LNC 5. Vitamin Oral tab 1 tab once daily 6. prednisone 10 mg Oral tab once daily 7. ranitidine HCl 75 mg Oral tab 1 tab once daily 8. Advair Diskus 115/21 mcg/dose Inhl dsdv 1 puff 2 times per day 9. rotates cipro, augmentin and bactrim ea month taking 1 for 7 days starting on the 1st - PMHx: Cancer Right Tonsil; COPD; Pneumonia; - PSHx: oral surgery; right foot surgery; Cataract Surgery- Bilateral; - Social history: No barriers to communication noted, The patient speaks fluent German, Speaks appropriately for age, Smoking status: Patient states former smoker of tobacco. - Family history: Not pertinent. - : The pt / caregiver states he / she is not on anticoagulants. Home medication list is obtained from family members. - Exposure Risk Screening:: None identified. Screenin:09 Screening information is obtained from the patient. Fall risk: No risks identified. pml Assistance ADL's: requires no assistance with activities of daily living. Abuse/DV Screen: The patient / caregiver reports he/she is: not in a situation that causes fear, pain or injury. Nutritional screening: No deficits noted. Advance Directives: Currently, there is no health care proxy. home support is adequate. Assessment: 11:09 General: see triage note. pml 11:44 Pain: Location: right posterior aspect of neck and right lateral aspect of neck Pain pml currently is 8 out of 10 on a pain scale. Neurological: Level of Consciousness is awake, alert, Oriented to person, place, time. Cardiovascular: Capillary refill < 3 seconds. Respiratory: Airway is patent Respiratory effort is unlabored. Derm: Skin is pink, warm & dry. 12:05 General: pt reports feeling better. Spo2 noted to be 96% on 15lpm NRB - adjusted to pml 10lpm NRB and pt tolerating well. will continue to monitor. sinus rhythm on monitor without ectopy. skin p/w/d. IVF infusing as ordered. 13:26 General: Appears in no apparent distress, comfortable, Behavior is appropriate for age, pml cooperative. Neurological: Level of Consciousness is awake, alert, Oriented to person, place, time. Cardiovascular: Capillary refill < 3 seconds. Respiratory: Airway is patent Respiratory effort is even, unlabored. Derm: Skin is pink, warm & dry. 14:23 General: Resting on stretcher, resps easy and unlabored, skin p/w/d. voices no pml complaints. sinus rhythm on monitor. . 14:45 General: o2 titrated to home dose of 3lpm. pt tolerating well with spo2 in low 90s. pml 15:04 General: hospitalist in to see patient. pml 15:12 General: Appears in no apparent distress, Behavior is appropriate for age, cooperative. pml Pain: Denies pain. Neurological: Level of Consciousness is awake, alert, Oriented to person, place, time. Cardiovascular: Capillary refill < 3 seconds. Respiratory: Airway is patent Respiratory effort is even, unlabored. Derm: Skin is pink, warm & dry. Vital Signs: 10:30 BP 90 / 53; Pulse 110; Resp 20; Temp 97.7(O); Pulse Ox 78% on 3 lpm NC; Weight 72.57 kg ct3 (R); Height 6 ft. 1 in. (185.42 cm) (R); Pain 5/10; 10:38 BP 92 / 60 (auto/); pml 10:39 Pulse 108 MON; Pulse Ox 75% ; pml 10:50 BP 107 / 72 (auto/); pml 10:51 Pulse 102 MON; Pulse Ox 91% ; pml 11:05 BP 92 / 66 (auto/); pml 11:06 Pulse 98 MON; Pulse Ox 90% ; pml 11:20 BP 96 / 64 (auto/); pml 11:21 Pulse 96 MON; Pulse Ox 92% ; pml 11:35 BP 101 / 65 (auto/); pml 11:36 Pulse 90 MON; Pulse Ox 93% ; pml 11:50 BP 88 / 56 (auto/); pml 11:51 Pulse 90 MON; Pulse Ox 95% ; pml 12:05 BP 90 / 55 (auto/); pml 12:06 Pulse 86 MON; Pulse Ox 94% ; pml 12:20 BP 99 / 59 (auto/); pml 12:21 Pulse 84 MON; Pulse Ox 96% ; pml 12:35 BP 102 / 59 (auto/); pml 12:36 Pulse 84 MON; Pulse Ox 96% ; pml 12:50 BP 97 / 59 (auto/); pml 12:51 Pulse 80 MON; Pulse Ox 96% ; pml 13:05 BP 104 / 62 (auto/); pml 13:06 Pulse 82 MON; Pulse Ox 96% ; pml 13:20 BP 110 / 72 (auto/); pml 13:21 Pulse 86 MON; Pulse Ox 94% ; pml 13:35 BP 100 / 71 (auto/); pml 13:36 Pulse 86 MON; Pulse Ox 92% ; pml 13:50 BP 108 / 71 (auto/); pml 13:51 Pulse 84 MON; Pulse Ox 91% ; pml 14:05 BP 98 / 58 (auto/); pml 14:06 Pulse 82 MON; Pulse Ox 87% ; pml 14:20 BP 95 / 58 (auto/); pml 14:20 Pulse 82 MON; Pulse Ox 91% ; pml 14:35 BP 89 / 52 (auto/); pml 14:36 Pulse 84 MON; Pulse Ox 91% ; pml 14:50 BP 125 / 63 (auto/); pml 14:51 Pulse 82 MON; Pulse Ox 91% ; pml 15:05 BP 117 / 66 (auto/); pml 15:06 Pulse 84 MON; Pulse Ox 92% ; pml 15:13 BP 117 / 73; Pulse 83; Resp 18; Temp 97.9; Pulse Ox 92% on 3 lpm NC; Pain 0/10; pml 10:30 Body Mass Index 21.11 (72.57 kg, 185.42 cm) ct3 Vitals: 10:30 Log In Time: August 30, 2016 at 10:28. ct3 10:30 RN notified that patient meets Red Flag criteria. ct3 ED Course: 10:30 Patient visited by Lavern De La Rosa PCA. ct3 10:30 Teresa Azar is Private Physician. ct3 10:30 Patient moved to Waiting ct3 10:34 Liudmila Cabello,RN is Primary Nurse. ct3 10:34 Patient moved to 5 ct3 10:38 Triage Initiated pml 10:42 Queta Byers MD is Attending Physician. fg 10:49 Patient visited by Queta Byers MD. fg 10:58 -Arterial Blood Gas Sent. cs15 11:09 The patient / caregiver is instructed regarding the plan of care and ED course. Patient pml has correct armband on for positive identification. Placed in gown. Bed in low position. Call light in reach. Side rails up X2. secured entrance monitor on. Pulse ox on. NIBP on. 11:09 Inserted peripheral IV: 20gauge IV in right forearm and blood collected. Patient pml tolerated the procedure well. O2 via non-rebreather \T\ 15L/min. 11:10 EKG done. (by ED staff). Reviewed by Queta Byers MD. dem1 11:12 Patient visited by Lauren Blankenship. dem1 11:18 [facility] Payment Agreement was scanned into [employer] and attached to record. ks16 11:45 Patient visited by Liudmila Cabello,LISSA. pml 11:46 Chest, 1 View Returned. EDMS 12:06 Patient visited by Liudmila Cabello RN. pml 13:27 Patient visited by Liudmila Cabello,LISSA. pml 14:11 DIFFERENTIAL NO CHARGE Sent. pml 14:24 Patient visited by Liudmila Cabello RN. pml 15:05 Esequiel Nance MD is Referral Physician. fg 15:13 Discontinued lock intact, bleeding controlled, pressure dressing applied, No pml redness/swelling at site. No procedures done that require assistance. 17:40 T-Sheet-- Draft Copy was scanned into [employer] and attached to record. klr 20:06 EKG-ADULT Returned. EDMS 02 09:53 ECG/EKG was scanned into [employer] and attached to record. lg Administered Medications: 08/30 11:55 Drug: NS 0.9% 1000 ml [sodium chloride 0.9 % injection syringe] Route: IV; Rate: bolus; pml Site: left antecubital; 13:10 Follow up: IV Status: Completed infusion; IV Intake: 1000ml pml 15:12 Drug: Trimethoprim-Sulfamethoxazole 1 tabs [sulfamethoxazole 800 mg-trimethoprim 160 mg pml tablet (1 tabs)] Route: PO; Intake: 13:10 IV: 1000.00ml; Total: 1000.00ml. pml RT: 10:58 ABG's drawn from right radial artery allens test done and positive pressure held for 5 cs15 minutes no bleeding noted pressure bandage applied specimen sent pt. tolerated well. O2 via non-rebreather \T\ 15L/min. Respiratory: Respiratory effort is labored, Respiratory pattern is regular Breath sounds with crackles bilaterally. in left posterior lower lobe and right posterior lower lobe Breath sounds are diminished bilaterally. Order Results: Lab Order: -Arterial Blood Gas; SPEC08/30/16 10:56 Test: ABG pH (ARTERIAL); Value: 7.411; Range: 7.350-7.450; Units: UNITS; Status: F Test: ABG PARTIAL PRESSURE CO2; Value: 50.1; Range: 35.0-45.0; Abnormal: Above high normal; Units: mmHg; Status: F Test: ABG PARTIAL PRESSURE O2; Value: 74.0; Range: 75.0-100.0; Abnormal: Below low normal; Units: mmHg; Status: F Test: ABG TOTAL CO2; Value: 32.7; Range: 23.0-31.0; Abnormal: Above high normal; Units: MEQ/L; Status: F Test: ABG HCO3; Value: 31.1; Range: 22.0-26.0; Abnormal: Above high normal; Units: MEQ/L; Status: F Test: ABG BASE EXCESS; Value: 5.3; Range: -2.0-2.0; Abnormal: Above high normal; Status: F Test: ABG STANDARD HCO3; Value: 29.1; Range: 22.0-26.0; Abnormal: Above high normal; Units: MEQ/L; Status: F Test: ABG O2 SATURATION; Value: 95.0; Range: 95.0-99.0; Units: %; Status: F Test: ABG DEVICE; Value: NASAL JUDSON; Status: F Lab Order: -Blood Culture; SPEC08/30/16 11:00 Test: BLOOD CULTURE; Value: No growth after 24 hours . All specimens observed; Status: F Test: BLOOD CULTURE; Value: for 5 days. Results final at that time.; Status: F Test: BLOOD CULTURE; Value: No Growth after 48 hours. All Specimens observed; Status: F Test: BLOOD CULTURE; Value: for 7 days. Results final at that time.; Status: F Lab Order: CBC with Diff; SPEC'M 08/30/16 11:00 Test: WHITE BLOOD COUNT; Value: 12.9; Range: 4.0-10.0; Abnormal: Above high normal; Units: K/mm3; Status: F Test: RED BLOOD COUNT; Value: 4.32; Range: 4.30-6.10; Units: M/mm3; Status: F Test: HEMOGLOBIN; Value: 15.0; Range: 14.0-18.0; Units: g/dl; Status: F Test: HEMATOCRIT; Value: 44.6; Range: 42.0-52.0; Units: %; Status: F Test: MEAN CORPUSCULAR VOLUME; Value: 103.2; Range: 80.0-96.0; Abnormal: Above high normal; Units: fl; Status: F Test: MEAN CORPUSCULAR HEMOGLOBIN; Value: 34.6; Range: 27.0-33.0; Abnormal: Above high normal; Units: pg; Status: F Test: MEAN CORPUSCULAR HGB CONC; Value: 33.6; Range: 32.0-36.5; Units: g/dl; Status: F Test: RED CELL DISTRIBUTION WIDTH; Value: 13.9; Range: 11.5-14.5; Units: %; Status: F Test: PLATELET COUNT, AUTOMATED; Value: 225; Range: 150-450; Units: k/mm3; Status: F Test: NEUTROPHILS; Value: 83; Range: 35-75; Abnormal: Above high normal; Units: %; Status: F Test: LYMPHOCYTES; Value: 6; Range: 16-52; Abnormal: Below low normal; Units: %; Status: F Test: MONOCYTES; Value: 6; Range: 0-8; Units: %; Status: F Test: EOSINOPHILS; Value: 2; Range: 0-5; Units: %; Status: F Test: BASOPHILS; Value: 1; Range: 0-4; Units: %; Status: F Test: ATYPICAL LYMPH; Value: 2; Range: 0-5; Units: %; Status: F Test: MACROCYTOSIS; Value: 1+; Status: F Lab Order: Lactic Acid (Mchugh tube on ice); SPEC'08/30/16 11:00 Test: LACTIC ACID SEPSIS PROTOCOL; Value: 2.0; Range: 0.4-2.0; Units: MMOL/L; Status: F Lab Order: Liver Profile; SPEC'08/30/16 11:00 Test: AST/SGOT; Value: 43; Range: 15-37; Abnormal: Above high normal; Units: U/L; Status: F Test: ALT/SGPT; Value: 57; Range: 12-78; Units: U/L; Status: F Test: ALKALINE PHOSPHATASE; Value: 220; Range: 45-117; Abnormal: Above high normal; Units: U/L; Status: F Test: BILIRUBIN,TOTAL; Value: 0.2; Range: 0.2-1.0; Units: MG/DL; Status: F Test: BILIRUBIN,DIRECT; Value: < 0.1; Range: 0.0-0.2; Units: MG/DL; Status: F Test: TOTAL PROTEIN; Value: 7.4; Range: 6.4-8.2; Units: GM/DL; Status: F Test: ALBUMIN; Value: 3.3; Range: 3.2-5.2; Units: GM/DL; Status: F Test: ALBUMIN/GLOBULIN RATIO; Value: 0.80; Range: 1.00-1.93; Abnormal: Below low normal; Status: F Lab Order: [facility]; [facility] 08/30/16 11:00 Test: GLUCOSE, FASTING; Value: 189; Range: 80-110; Abnormal: Above high normal; Units: MG/DL; Status: F Test: BLOOD UREA NITROGEN; Value: 21; Range: 7-18; Abnormal: Above high normal; Units: MG/DL; Status: F Test: CREATININE FOR GFR; Value: 0.99; Range: 0.70-1.30; Units: MG/DL; Status: F Test: GLOMERULAR FILTRATION RATE; Value: > 60.0; Range: >49; Status: F Test: SODIUM LEVEL; Value: 138; Range: 136-145; Units: MEQ/L; Status: F Test: POTASSIUM SERUM; Value: 4.2; Range: 3.5-5.1; Units: MEQ/L; Status: F Test: CHLORIDE LEVEL; Value: 98; Range: 98-107; Units: MEQ/L; Status: F Test: CARBON DIOXIDE LEVEL; Value: 33; Range: 21-32; Abnormal: Above high normal; Units: MEQ/L; Status: F Test: ANION GAP; Value: 7; Range: 8-16; Abnormal: Below low normal; Units: MEQ/L; Status: F Test: CALCIUM LEVEL; Value: 9.1; Range: 8.8-10.2; Units: MG/DL; Status: F Test Note: ; Units are mL/min/1.73 m2 Chronic Kidney Disease Staging per NKF: Stage I & II GFR >=60 Normal to Mildly Decreased Stage III GFR 30-59 Moderately Decreased Stage IV GFR 15-29 Severely Decreased Stage V GFR <15 Very Little GFR Left ESRD GFR <15 on CHILDREN'S PROGRAM COORDINATOR Lab Order: PT/INR; [facility] 08/30/16 11:00 Test: PROTHROMBIN TIME; Value: 12.7; Range: 12.3-14.5; Units: SECONDS; Status: F Test: INR; Value: 0.94; Status: F Test Note: ; THERAPUTIC HUMAN INR VALUES INDICATIONS NORMAL RANGES PROPHYLAXIS/TREATMENT OF: VENOUS THROMBOSIS 2.0-3.0 PULMONARY EMBOLISM 2.0-3.0 PREVENTION OF SYSTEMIC EMBOLISM FROM: TISSUE HEART VALVES 2.0-3.0 ACUTE MYOCARDIAL INFARCTION 2.0-3.0 VALVULAR HEART DISEASE 2.0-3.0 ATRIAL FIBRILLATION 2.0-3.0 MECHANICAL VALVES(HIGH RISK) 2.5-3.5 RECURRENT MYOCARDIAL INFARCTION 2.5-3.5 Lab Order: PTT; [facility] 08/30/16 11:00 Test: PARTIAL THROMBOPLASTIN TIME; Value: 32.0; Range: 26.6-37.1; Units: SECONDS; Status: F Lab Order: Urinalysis; [facility] 08/30/16 13:46 Test: APPEARANCE, URINE; Value: HAZY; Range: CLEAR; Status: F Test: COLOR, URINE; Value: VELIA; Range: YELLOW; Status: F Test: PH,URINE; Value: 7.0; Range: 5.0-9.0; Units: UNITS; Status: F Test: SPECIFIC GRAVITY URINE AUTO; Value: 1.016; Range: 1.002-1.035; Status: F Test: PROTEIN, URINE AUTO; Value: NEGATIVE; Range: NEGATIVE; Units: mg/dL; Status: F Test: GLUCOSE, URINE (UA) AUTO; Value: NEGATIVE; Range: NEGATIVE; Units: mg/dL; Status: F Test: KETONE, URINE AUTO; Value: NEGATIVE; Range: NEGATIVE; Units: mg/dL; Status: F Test: UROBILINOGEN, URINE AUTO; Value: 0.2; Range: 0.0-2.0; Units: mg/dL; Status: F Test: BILIRUBIN, URINE AUTO; Value: NEGATIVE; Range: NEGATIVE; Status: F Test: NITRITE, URINE AUTO; Value: NEGATIVE; Range: NEGATIVE; Status: F Test: LEUKOCYTE ESTERASE, URINE AUTO; Value: NEGATIVE; Range: NEGATIVE; Status: F Test: BLOOD, URINE BLOOD; Value: NEGATIVE; Range: NEGATIVE; Status: F Test: WBC, URINE AUTO; Value: 1; Range: 0-3; Units: /HPF; Status: F Test: RBC, URINE AUTO; Value: 0; Range: 0-3; Units: /HPF; Status: F Test: BACTERIA, URINE AUTO; Value: NEGATIVE; Range: NEGATIVE; Status: F Test: SQUAMOUS EPITHELIAL CELL UR AU; Value: 0; Range: 0-6; Units: /HPF; Status: F Test: MUCUS, URINE; Value: SMALL; Range: NEGATIVE; Status: F Test: HYALINE CAST, URINE AUTO; Value: 1; Range: 0-1; Units: /LPF; Status: F Lab Order: Urine Culture; SPEC'M 08/30/16 13:46 Test: URINE CULTURE; Value: <EXTERNAL COMMENT eCWMed> FULL REPORT IN LAB NOTES (eCW and Medent).; Status: F Test: URINE CULTURE; Value: ORGANISM 1: STAPHYLOCOCCUS LUGDUNENSIS; Status: F Test: URINE CULTURE; Value: STAPHYLOCOCCUS LUGDUNENSIS; Status: F Test: URINE CULTURE; Value: COLONY COUNT CFU/ml 40,000; Status: F Test: URINE CULTURE; Value: GRAM POS SENSI - VITEK 67; Status: F Test: URINE CULTURE; Value: Method: VIT2; Status: F Test: URINE CULTURE; Value: TETRACYCLINE 2 S; Status: F Test: URINE CULTURE; Value: PENICILLIN G >=0.5 R; Status: F Test: URINE CULTURE; Value: TRIMETHOPRIM/SULFAMETHOXAZOLE 80 R; Status: F Test: URINE CULTURE; Value: ERYTHROMYCIN >=8 R; Status: F Test: URINE CULTURE; Value: GENTAMICIN <=0.5 S; Status: F Test: URINE CULTURE; Value: CLINDAMYCIN <=0.25 R; Status: F Test: URINE CULTURE; Value: NITROFURANTOIN <=16 S; Status: F Test: URINE CULTURE; Value: OXACILLIN >=4 R; Status: F Test: URINE CULTURE; Value: VANCOMYCIN 1 S; Status: F Test: URINE CULTURE; Value: LINEZOLID (ZYVOX) 1 S; Status: F Lab Order: BLOOD CULTURES; SPEC'M 08/30/16 11:06 Test: BLOOD CULTURE; Value: No growth after 24 hours . All specimens observed; Status: F Test: BLOOD CULTURE; Value: for 5 days. Results final at that time.; Status: F Test: BLOOD CULTURE; Value: No Growth after 48 hours. All Specimens observed; Status: F Test: BLOOD CULTURE; Value: for 7 days. Results final at that time.; Status: F Lab Order: BNP; SPEC'M 08/30/16 11:00 Test: BRAIN NATRIURETIC PEPTIDE; Value: 21.7; Range: <100; Units: PG/ML; Status: F Lab Order: PLATELET ESTIMATE; SPEC'M 08/30/16 11:00 Test: PLATELET ESTIMATE; Value: NORMAL; Range: NORMAL; Status: F Radiology Order: Chest, 1 View Test: Chest, 1 View REASON FOR EXAMINATION: Chest Pain; Clinical: Chest pain. Dyspnea.; ; Comparison: 07/20/2016.; ; Findings:; Mediastinum and cardiac silhouette are stable. Lung randall demonstrate chronic; changes with superimposed left lower lobe infiltrate increased from prior; examination. No obvious effusion. No pneumothorax. Skeletal structures; intact.; ; Impression:; Diffuse chronic changes with superimposed increasing right lower lobe; infiltrate.; ; ; Signed by; Ankush Galvan MD 08/30/2016 11:11 A; Radiology Order: EKG-ADULT Test: EKG-ADULT REASON FOR EXAMINATION: Chest Pain; Stationary ECG Study; [facility] - ED; ; Test Date: 2016-08-30; Pat Name: JADON VALLEJO Department:; Room: -; Gender: M Frame Opener: dm; : 1950 Requested By: QUETA Mcelroy; Order Number: [id number] Ricky MD: Miranda Johnson; Measurements; Intervals [place]; Rate: 98 P: 82; WY: 182 QRS: 61; QRSD: 80 T: 61; QT: 387; QTc: 496; Interpretive Statements; SINUS RHYTHM; LEFT ATRIAL ENLARGEMENT; DECREASED ECTOPY COMPARED 1/8/17; Electronically Signed On 08-30-2016 19:45:50 EST by Miranda Johnson; Outcome: 15:06 Discharge ordered by Provider. fg 15:13 Discharge Assessment: Patient awake, alert and oriented x 3. No cognitive and/or pml functional deficits noted. Patient verbalized understanding of disposition instructions. patient administered narcotics - no. The following High Risk Discharge criteria are identified: None. Discharged to home ambulatory. Condition: good Condition: stable. Discharge instructions given to patient, Instructed on discharge instructions, follow up and referral plans. medication usage, Demonstrated understanding of instructions, medications, Pt was receptive of discharge instructions/ teaching. Prescriptions given X 1. No special radiology studies were completed. Property sent home with patient. 15:14 Patient left the ED. pml Signatures: Dispatcher [employer] EDMS Rowena Olivas, Reg Reg lg De La Rosa, Lavern, ENGINEERING LECTURER ENGINEERING LECTURER ct3 Polina Yuan RN RN dsf Quay, Paulina, RN RN pml Lauren Blankenship1 Queta Byers MD MD Romain Lee,RT RT cs15 Viviane Lang, Reg Reg [id number] Radha Greco Corrections: (The following items were deleted from the chart) 10:45 10:40 Adult Sepsis Screening: The patient does not have new or worsening altered pml mentation. Patient has a respiratory rate of greater than or equal to 22 (1 point). Systolic blood pressure is less than or equal to 100 (1 point). Patient has a qSOFA score of 2. No known or suspected infection- Negative Sepsis Screen pml 10:53 10:44 Home Meds: rotates cipro, augmentin and bactrim every month - no abx this week; pml pml Chart Complete MTDD
--- NOTE | 2016-09-01 16:15 | EDDOCDS ---
Physician Documentation [facility] Name: Jadon Grove Age: 66 yrs Sex: Male : 1950 Arrival Date: 08/30/2016 Time: 10:28 Bed 5 Private MD: Teresa Azar E Disposition: 08/30/16 15:06 Discharged to Home/Self Care. Impression: Pneumonia in diseases classified elsewhere. - Condition is Stable. - Discharge Instructions: Pneumonia, Adult. - Prescriptions for Bactrim DS 800- 160 mg Oral Tablet - take 1 tablet by ORAL route every 12 hours for 7 days; 14 tablet. - Medication Reconciliation, Local Pharmacy Hours form. - Follow up: Esequiel Nance MD; When: Call to arrange an appointment; Reason: Continuance of care. - Problem is new. - Symptoms are unchanged. Historical: - Allergies: Flagyl (Rash); - Home Meds: 1. albuterol sulfate 2.5 mg/0.5 mL Inhl nebu 3 times per day 2. albuterol sulfate 90 mcg/actuation Inhl aepb 2 puffs every 4 hours As needed 3. aspirin 81 mg Oral tab 1 tab once daily 4. Oxygen 3LNC 5. Vitamin Oral tab 1 tab once daily 6. prednisone 10 mg Oral tab once daily 7. ranitidine HCl 75 mg Oral tab 1 tab once daily 8. Advair Diskus 115/21 mcg/dose Inhl dsdv 1 puff 2 times per day 9. rotates cipro, augmentin and bactrim ea month taking 1 for 7 days starting on the 1st - PMHx: Cancer Right Tonsil; COPD; Pneumonia; - PSHx: oral surgery; right foot surgery; Cataract Surgery- Bilateral; - Social history: No barriers to communication noted, The patient speaks fluent Polish, Speaks appropriately for age, Smoking status: Patient states former smoker of tobacco. - Family history: Not pertinent. - : The pt / caregiver states he / she is not on anticoagulants. Home medication list is obtained from family members. - Exposure Risk Screening:: None identified. Vital Signs: 08/30 10:30 BP 90 / 53; Pulse 110; Resp 20; Temp 97.7(O); Pulse Ox 78% on 3 lpm NC; Weight 72.57 kg ct3 / 159.99 lbs (R); Height 6 ft. 1 in. (185.42 cm) (R); Pain 5/10; 10:38 BP 92 / 60 (auto/); pml 10:39 Pulse 108 MON; Pulse Ox 75% ; pml 10:50 BP 107 / 72 (auto/); pml 10:51 Pulse 102 MON; Pulse Ox 91% ; pml 11:05 BP 92 / 66 (auto/); pml 11:06 Pulse 98 MON; Pulse Ox 90% ; pml 11:20 BP 96 / 64 (auto/); pml 11:21 Pulse 96 MON; Pulse Ox 92% ; pml 11:35 BP 101 / 65 (auto/); pml 11:36 Pulse 90 MON; Pulse Ox 93% ; pml 11:50 BP 88 / 56 (auto/); pml 11:51 Pulse 90 MON; Pulse Ox 95% ; pml 12:05 BP 90 / 55 (auto/); pml 12:06 Pulse 86 MON; Pulse Ox 94% ; pml 12:20 BP 99 / 59 (auto/); pml 12:21 Pulse 84 MON; Pulse Ox 96% ; pml 12:35 BP 102 / 59 (auto/); pml 12:36 Pulse 84 MON; Pulse Ox 96% ; pml 12:50 BP 97 / 59 (auto/); pml 12:51 Pulse 80 MON; Pulse Ox 96% ; pml 13:05 BP 104 / 62 (auto/); pml 13:06 Pulse 82 MON; Pulse Ox 96% ; pml 13:20 BP 110 / 72 (auto/); pml 13:21 Pulse 86 MON; Pulse Ox 94% ; pml 13:35 BP 100 / 71 (auto/); pml 13:36 Pulse 86 MON; Pulse Ox 92% ; pml 13:50 BP 108 / 71 (auto/); pml 13:51 Pulse 84 MON; Pulse Ox 91% ; pml 14:05 BP 98 / 58 (auto/); pml 14:06 Pulse 82 MON; Pulse Ox 87% ; pml 14:20 BP 95 / 58 (auto/); pml 14:20 Pulse 82 MON; Pulse Ox 91% ; pml 14:35 BP 89 / 52 (auto/); pml 14:36 Pulse 84 MON; Pulse Ox 91% ; pml 14:50 BP 125 / 63 (auto/); pml 14:51 Pulse 82 MON; Pulse Ox 91% ; pml 15:05 BP 117 / 66 (auto/); pml 15:06 Pulse 84 MON; Pulse Ox 92% ; pml 15:13 BP 117 / 73; Pulse 83; Resp 18; Temp 97.9; Pulse Ox 92% on 3 lpm NC; Pain 0/10; pml 10:30 Body Mass Index 21.11 (72.57 kg, 185.42 cm) ct3 MDM: 10:49 -Blood Culture (Adults Only), peripheral from different site, or from device/port/PICC fg etc. if present ordered. 10:49 Call Respiratory ordered. fg 10:49 Toll Mechanic/Pulse Ox/q 15 min VS ordered. fg 10:49 Large bore IV x 2 ordered. fg 10:49 Oxygen at 4L/Min NC or Home dosage ordered. fg 10:49 Intake and Output Hourly ordered. fg 10:50 Call Respiratory complete. ar3 10:50 -Blood Culture (Adults Only), peripheral from different site, or from device/port/PICC ar3 etc. if present complete. 10:50 -Arterial Blood Gas Ordered. EDMS 10:50 CBC with Diff Ordered. EDMS 10:50 Lactic Acid (Mchugh tube on ice) Ordered. EDMS 10:50 Liver Profile Ordered. EDMS 10:50 MED Profile Ordered. EDMS 10:50 PT/INR Ordered. EDMS 10:50 PTT Ordered. EDMS 10:50 Urinalysis Ordered. EDMS 10:51 -Blood Culture Ordered. EDMS 10:51 Urine Culture Ordered. EDMS 10:51 Chest, 1 View Ordered. EDMS 10:51 ECG WITH READING ER PHYS+CARDIAG ordered. EDMS 10:52 BLOOD CULTURES Ordered. EDMS 11:05 BNP Ordered. EDMS 11:16 Financial registration complete. [email or web address] 11:18 [facility] [place] Agreement was scanned into [employer] and attached to record. [email or web address] 11:32 DIFFERENTIAL NO CHARGE Ordered. EDMS 11:32 PLATELET ESTIMATE Ordered. EDMS 11:53 NS 0.9% 1000 ml IV at bolus once ordered. fg 15:05 Trimethoprim-Sulfamethoxazole 160 mg-800 mg (DS) 1 tabs PO once ordered. fg 17:40 T-Sheet-- Draft Copy was scanned into Sanswire and attached to record. klr 09/01 09:53 ECG/EKG was scanned into [employer] and attached to record. lg Administered Medications: 08/30 11:55 Drug: NS 0.9% 1000 ml [sodium chloride 0.9 % injection syringe] Route: IV; Rate: bolus; pml Site: left antecubital; 13:10 Follow up: IV Status: Completed infusion; IV Intake: 1000ml pml 15:12 Drug: Trimethoprim-Sulfamethoxazole 1 tabs [sulfamethoxazole 800 mg-trimethoprim 160 mg pml tablet (1 tabs)] Route: PO; Signatures: Dispatcher MedHost EDMS Rowena Olivas, Reg Reg lg Colleen Young, BIOCHEMISTRY PROFESSOR BIOCHEMISTRY PROFESSOR ar3 Liudmila Cabello,RN RN pml Queta Byers MD MD Viviane Lang, Reg Reg ks16 Radha Greco The chart was reviewed and I authenticate all verbal orders and agree with the evaluation and treatment provided.Corrections: (The following items were deleted from the chart) 10:53 10:44 Home Meds: rotates cipro, augmentin and bactrim every month - no abx this week; pml pml 11:10 10:49 Set up for triple lumen central Iine placement ordered. fg pml 11:14 10:49 Strep Screen, Nursing ordered. fg Attachments: 11:18 [facility] Payment Agreement [email or web address] 17:40 T-Sheet-- Draft Copy [facility] 09/01 09:53 ECG/EKG lg Chart Complete MTDD
--- NOTE | 2016-09-01 16:15 | EDDOCDS ---
Physician Documentation [facility] Name: Jadon Grove Age: 66 yrs Sex: Male : 1950 Arrival Date: 08/30/2016 Time: 10:28 Bed 5 Private MD: Teresa Azar E Disposition: 08/30/16 15:06 Discharged to Home/Self Care. Impression: Pneumonia in diseases classified elsewhere. - Condition is Stable. - Discharge Instructions: Pneumonia, Adult. - Prescriptions for Bactrim DS 800- 160 mg Oral Tablet - take 1 tablet by ORAL route every 12 hours for 7 days; 14 tablet. - Medication Reconciliation, Local Pharmacy Hours form. - Follow up: Esequiel Nance MD; When: Call to arrange an appointment; Reason: Continuance of care. - Problem is new. - Symptoms are unchanged. Historical: - Allergies: Flagyl (Rash); - Home Meds: 1. albuterol sulfate 2.5 mg/0.5 mL Inhl nebu 3 times per day 2. albuterol sulfate 90 mcg/actuation Inhl aepb 2 puffs every 4 hours As needed 3. aspirin 81 mg Oral tab 1 tab once daily 4. Oxygen 3LNC 5. Vitamin Oral tab 1 tab once daily 6. prednisone 10 mg Oral tab once daily 7. ranitidine HCl 75 mg Oral tab 1 tab once daily 8. Advair Diskus 115/21 mcg/dose Inhl dsdv 1 puff 2 times per day 9. rotates cipro, augmentin and bactrim ea month taking 1 for 7 days starting on the 1st - PMHx: Cancer Right Tonsil; COPD; Pneumonia; - PSHx: oral surgery; right foot surgery; Cataract Surgery- Bilateral; - Social history: No barriers to communication noted, The patient speaks fluent Serbian, Speaks appropriately for age, Smoking status: Patient states former smoker of tobacco. - Family history: Not pertinent. - : The pt / caregiver states he / she is not on anticoagulants. Home medication list is obtained from family members. - Exposure Risk Screening:: None identified. Vital Signs: 08/30 10:30 BP 90 / 53; Pulse 110; Resp 20; Temp 97.7(O); Pulse Ox 78% on 3 lpm NC; Weight 72.57 kg ct3 / 159.99 lbs (R); Height 6 ft. 1 in. (185.42 cm) (R); Pain 5/10; 10:38 BP 92 / 60 (auto/); pml 10:39 Pulse 108 MON; Pulse Ox 75% ; pml 10:50 BP 107 / 72 (auto/); pml 10:51 Pulse 102 MON; Pulse Ox 91% ; pml 11:05 BP 92 / 66 (auto/); pml 11:06 Pulse 98 MON; Pulse Ox 90% ; pml 11:20 BP 96 / 64 (auto/); pml 11:21 Pulse 96 MON; Pulse Ox 92% ; pml 11:35 BP 101 / 65 (auto/); pml 11:36 Pulse 90 MON; Pulse Ox 93% ; pml 11:50 BP 88 / 56 (auto/); pml 11:51 Pulse 90 MON; Pulse Ox 95% ; pml 12:05 BP 90 / 55 (auto/); pml 12:06 Pulse 86 MON; Pulse Ox 94% ; pml 12:20 BP 99 / 59 (auto/); pml 12:21 Pulse 84 MON; Pulse Ox 96% ; pml 12:35 BP 102 / 59 (auto/); pml 12:36 Pulse 84 MON; Pulse Ox 96% ; pml 12:50 BP 97 / 59 (auto/); pml 12:51 Pulse 80 MON; Pulse Ox 96% ; pml 13:05 BP 104 / 62 (auto/); pml 13:06 Pulse 82 MON; Pulse Ox 96% ; pml 13:20 BP 110 / 72 (auto/); pml 13:21 Pulse 86 MON; Pulse Ox 94% ; pml 13:35 BP 100 / 71 (auto/); pml 13:36 Pulse 86 MON; Pulse Ox 92% ; pml 13:50 BP 108 / 71 (auto/); pml 13:51 Pulse 84 MON; Pulse Ox 91% ; pml 14:05 BP 98 / 58 (auto/); pml 14:06 Pulse 82 MON; Pulse Ox 87% ; pml 14:20 BP 95 / 58 (auto/); pml 14:20 Pulse 82 MON; Pulse Ox 91% ; pml 14:35 BP 89 / 52 (auto/); pml 14:36 Pulse 84 MON; Pulse Ox 91% ; pml 14:50 BP 125 / 63 (auto/); pml 14:51 Pulse 82 MON; Pulse Ox 91% ; pml 15:05 BP 117 / 66 (auto/); pml 15:06 Pulse 84 MON; Pulse Ox 92% ; pml 15:13 BP 117 / 73; Pulse 83; Resp 18; Temp 97.9; Pulse Ox 92% on 3 lpm NC; Pain 0/10; pml 10:30 Body Mass Index 21.11 (72.57 kg, 185.42 cm) ct3 MDM: 10:49 -Blood Culture (Adults Only), peripheral from different site, or from device/port/PICC fg etc. if present ordered. 10:49 Call Respiratory ordered. fg 10:49 Construction Craft Laborer/Pulse Ox/q 15 min VS ordered. fg 10:49 Large bore IV x 2 ordered. fg 10:49 Oxygen at 4L/Min NC or Home dosage ordered. fg 10:49 Intake and Output Hourly ordered. fg 10:50 Call Respiratory complete. ar3 10:50 -Blood Culture (Adults Only), peripheral from different site, or from device/port/PICC ar3 etc. if present complete. 10:50 -Arterial Blood Gas Ordered. EDMS 10:50 CBC with Diff Ordered. EDMS 10:50 Lactic Acid (Mchugh tube on ice) Ordered. EDMS 10:50 Liver Profile Ordered. EDMS 10:50 MED Profile Ordered. EDMS 10:50 PT/INR Ordered. EDMS 10:50 PTT Ordered. EDMS 10:50 Urinalysis Ordered. EDMS 10:51 -Blood Culture Ordered. EDMS 10:51 Urine Culture Ordered. EDMS 10:51 Chest, 1 View Ordered. EDMS 10:51 ECG WITH READING ER PHYS+CARDIAG ordered. EDMS 10:52 BLOOD CULTURES Ordered. EDMS 11:05 BNP Ordered. EDMS 11:16 Financial registration complete. [email or web address] 11:18 [facility] [place] Agreement was scanned into [employer] and attached to record. [email or web address] 11:32 DIFFERENTIAL NO CHARGE Ordered. EDMS 11:32 PLATELET ESTIMATE Ordered. EDMS 11:53 NS 0.9% 1000 ml IV at bolus once ordered. fg 15:05 Trimethoprim-Sulfamethoxazole 160 mg-800 mg (DS) 1 tabs PO once ordered. fg 17:40 T-Sheet-- Draft Copy was scanned into Jampp and attached to record. klr 09/01 09:53 ECG/EKG was scanned into Jam[employer] and attached to record. lg Administered Medications: 08/30 11:55 Drug: NS 0.9% 1000 ml [sodium chloride 0.9 % injection syringe] Route: IV; Rate: bolus; pml Site: left antecubital; 13:10 Follow up: IV Status: Completed infusion; IV Intake: 1000ml pml 15:12 Drug: Trimethoprim-Sulfamethoxazole 1 tabs [sulfamethoxazole 800 mg-trimethoprim 160 mg pml tablet (1 tabs)] Route: PO; Signatures: Dispatcher MedHost EDMS Rowena Olivas, Reg Reg lg Colleen Young, JUNIOR LEGAL SECRETARY JUNIOR LEGAL SECRETARY ar3 Liudmila Cabello,RN RN pml Queta Byers MD MD Viviane Lang, Reg Reg ks16 Radha Greco The chart was reviewed and I authenticate all verbal orders and agree with the evaluation and treatment provided.Corrections: (The following items were deleted from the chart) 10:53 10:44 Home Meds: rotates cipro, augmentin and bactrim every month - no abx this week; pml pml 11:10 10:49 Set up for triple lumen central Iine placement ordered. fg pml 11:14 10:49 Strep Screen, Nursing ordered. fg Attachments: 11:18 [facility] Payment Agreement [email or web address] 17:40 T-Sheet-- Draft Copy [facility] 09/01 09:53 ECG/EKG lg Chart Complete MTDD
== END 2016-08-30 15:14 | disposition home or self-care (01) ==
LOC: M ED 10:28
DX: J18.9 Pneumonia, unspecified organism (principal); J44.9 Chronic obstructive pulmonary disease, unspecified; Z87.09 Personal history of other diseases of the respiratory system; Z85.89 Personal history of malignant neoplasm of other organs and systems; Z79.899 Other long term (current) drug therapy; Z79.82 Long term (current) use of aspirin; Z79.52 Long term (current) use of systemic steroids; Z79.51 Long term (current) use of inhaled steroids; Z99.81 Dependence on supplemental oxygen; Z79.2 Long term (current) use of antibiotics; Z88.1 Allergy status to other antibiotic agents; Z87.891 Personal history of nicotine dependence

== ENCOUNTER 2016-09-01 09:13 | Inpatient (IN) | payer MEDICARE, OTHER ==
[~2016-09-01] VITALS: Ht 185.4 cm; Wt 71.4 kg
[2016-09-01] MEDS: PRENATAL VITAMIN TAB PEG SCH (09:00)
[~2016-09-01 09:13] MED LIST changes: +predniSONE 10 MG TAB PEG SCH
[2016-09-01] MEDS ORDERED: methylPREDNISolone INJ 125 MG/2 ML VIAL (J2930) As Ordered ONE (09:24)
[2016-09-01] MEDS ORDERED: ACETAMINOPHEN SUSP 160 MG/5 ML UDC As Ordered ONE (09:24)
[2016-09-01] MEDS ORDERED: IPRATROPIUM 0.5MG/ALBUTEROL 2.5MG INH SOL UD 3ML (DUONEB)(J7620) As Ordered ONE (09:32)
[2016-09-01 09:40] LABS: ABG BASE EXCESS 3.9 (-2.0-2.0); ABG DEVICE NASAL CANN; ABG HCO3 29.3 MEQ/L (22.0-26.0); ABG PARTIAL PRESSURE CO2 46.6 mmHg (35.0-45.0); ABG TOTAL CO2 30.8 MEQ/L (23.0-31.0); ABG pH (ARTERIAL) 7.417 UNITS (7.350-7.450)
[2016-09-01] MEDS ORDERED: PRIMAXIN IV 500 MG VIAL As Ordered ONE (09:47)
[2016-09-01] MEDS ORDERED: PREVNAR 13 VACCINE SYRINGE (CPT CODE:90670) IM SCH (10:00)
[2016-09-01 10:09] LABS: MEAN CORPUSCULAR HEMOGLOBIN 34.6 pg (27.0-33.0); MEAN CORPUSCULAR HGB CONC 33.2 g/dl (32.0-36.5); MEAN CORPUSCULAR VOLUME 104.2 fl (80.0-96.0); PLATELET COUNT, AUTOMATED 234 k/mm3 (150-450); RED CELL DISTRIBUTION WIDTH 13.9 % (11.5-14.5)
[2016-09-01 10:11] LABS: ANION GAP 8 MEQ/L (8-16); BLOOD UREA NITROGEN 16 MG/DL (7-18); CALCIUM LEVEL 8.9 MG/DL (8.8-10.2); CARBON DIOXIDE LEVEL 32 MEQ/L (21-32); CHLORIDE LEVEL 96 MEQ/L (98-107); CREATININE FOR GFR 1.01 MG/DL (0.70-1.30); GLOMERULAR FILTRATION RATE > 60.0 (>49); GLUCOSE, FASTING 130 MG/DL (80-110); POTASSIUM SERUM 4.4 MEQ/L (3.5-5.1); SODIUM LEVEL 136 MEQ/L (136-145)
--- NOTE | 2016-09-01 10:15 | REP ---
Clinical: Shortness of breath. Comparison: 08/30/2016. Findings: Mediastinum and cardiac silhouette are stable. Lung randall demonstrate diffuse chronic interstitial changes. Acute on chronic lower lobe infiltrates cannot be excluded. No effusion. No pneumothorax. Skeletal structures stable. Impression: Diffuse chronic interstitial changes. Acute on chronic bibasilar infiltrates (right greater than left) cannot be excluded. Findings similar to recent prior examination. Signed by Ankush Galvan MD 09/01/2016 10:06 A
[2016-09-01 10:32] LABS: BANDS 7 % (< 11); BASOPHILS 1 % (0-4)
[2016-09-01 10:33] LABS: ANISOCYTOSIS 2+
[2016-09-01 10:35] LABS: TOXIC GRANULATION 1+
[2016-09-01] MEDS ORDERED: ALBUTEROL 90 MCG/ACT 8GM HFA INHALER INH PRN (11:15)
[2016-09-01] MEDS ORDERED: PERCOCET 5MG/325MG TAB PO PRN (11:15)
[2016-09-01] MEDS ORDERED: ALBUTEROL SULFATE 2.5 MG/0.5 ML INH NEB SOLN INH PRN (11:15)
[2016-09-01] MEDS ORDERED: ACETAMINOPHEN TAB 650MG DOSE (2X325MG) PEG PRN (11:15)
[2016-09-01] MEDS ORDERED: ACETAMINOPHEN TAB 650MG DOSE (2X325MG) PO PRN (11:15)
[2016-09-01 15:10] VITALS: BP 121/69
--- NOTE | 2016-09-01 15:36 | HPE ---
DATE OF ADMISSION: 09/01/2016 PRIMARY CARE PROVIDER: Dr. Teresa Azar at [place]. ECG TECHNICIAN: Esequiel Nance MD CHIEF COMPLAINT: Worsening shortness of breath with fever and chills. HISTORY OF PRESENT ILLNESS: This patient is a 66-year-old male with a past medical history significant for chronic obstructive pulmonary disease (COPD) with bronchiectasis on chronic suppression antibiotic therapy, interstitial pulmonary fibrosis, lumbar stenosis, gastroesophageal reflux disease, history of recurrent aspiration with percutaneous endoscopic gastrostomy (PEG) tube in place, tonsillar cancer status post surgery and radiation, recurrent pneumonia, presented to [facility] on 09/01/2016, for worsening shortness of breath. Patient has a history of recurrent aspiration and recurrent pneumonia and COPD. Patient has been on chronic suppression antibiotic therapy. His usual regimen is 1 week a month he has been taking Bactrim, then switches to 1 week a month with Augmentin, and 1 week a month of Cipro, designed by Dr. Nance. Patient started having acute worsening shortness of breath in the past 24-48 hours. Patient also noted to have a fever and chills. At baseline, patient is using three liters nasal cannula. However, he noticed he has been requiring an increased amount of oxygen supplement. When patient arrived in the emergency room, nonbreather mask with 100% oxygen has been used in order to maintain oxygen saturation. Patient received Solu-Medrol 125 mg intravenous (IV) times one, breathing treatment, nebulizer times three, imipenem/cilastatin IV times one, and hospitalist team was called for admission. ALLERGIES: FLAGYL (rash). PAST MEDICAL HISTORY: 1. COPD with bronchiectasis on chronic antibiotic suppression and on chronic three liters nasal cannula oxygen. 2. History of interstitial pulmonary fibrosis. 3. Lumbar stenosis. 4. Gastroesophageal reflux disease. 5. Frequent aspiration, has PEG tube placement. 6. History of tonsillar cancer status post surgery and radiation in 2003. 7. Jaw necrosis and jaw reconstruction in 2008. 8. History of recurrent pneumonia. PAST SURGICAL HISTORY: 1. PEG tube replacement. 2. Jaw reconstruction. 3. Tonsillectomy for tonsillar cancer. SOCIAL HISTORY: Patient is a former smoker. Quit drinking several decades okay. No recreational drug use. Patient is FULL CODE. REVIEW OF SYSTEMS: GENERAL: Positive fever and chills. HEENT: History of tonsillar cancer with jaw reconstruction. Denies any vision changes or auditory changes. CARDIOVASCULAR: No chest pain, no palpitations. RESPIRATORY: Worsening shortness of breath, increased oxygen demands for the past few days, denies any sputum production. GASTROINTESTINAL (GI): No nausea, no vomiting, no diarrhea. MUSCULOSKELETAL: No muscle pain, no joint pain. NEUROLOGICAL: No numbness, no tingling. OBJECTIVE: VITAL SIGNS: Blood pressure 105/61, pulse 112, respiration rate 20, temperature 103.6, pulse oxygen 90% with nonrebreather mask. Body weight is 72.57 kg, body height 185 cm. GENERAL: Mild to moderate distress secondary to respiratory distress. Alert and oriented times three. HEENT: Facial asymmetry secondary to previous jaw necrosis and reconstruction. Otherwise normocephalic, atraumatic. CARDIOVASCULAR: Positive S1, S2, tachycardic with heart rate around 110. RESPIRATORY: Positive crackles mainly in the left side lung near the lower base. Positive expiratory wheezes. ABDOMEN: Soft, nontender, nondistended, bowel sounds present, no rebound, no guarding. EXTREMITIES: No edema, no sign of cyanosis. LABORATORY DATA: WBC 12, hemoglobin 15, hematocrit 45.2, platelet count 234. Sodium 136, potassium 4.4, chloride 96, carbon dioxide 32, BUN 16, creatinine 1.01, GFR greater than 60, fasting glucose 130, lactic acid 1.8, calcium 8.9, total CK 150, troponin I is 0.05, BNP is 42.2. ABG shows pH of 7.417, pCO2 is 46.6, pO2 is 87, HGO3 is 29.3. Microbiology: Blood cultures pending times two. IMAGING STUDIES: Chest xray shows diffuse chronic interstitial changes. Acute on chronic bibasilar infiltrates, right greater than left, cannot be excluded. ASSESSMENT AND PLAN: 1. Acute respiratory failure. Patient was admitted to the intensive care unit (ICU) under inpatient status. Will follow with sputum culture and respiratory panel. Patient has a history of recurrent pneumonia and cultures are reviewed. Most of the time patient grew Serratia and Klebsiella, both sensitive to meropenem. Patient had recent hospitalization, concern for hospital-acquired pneumonia. Patient was also on vancomycin. We will follow with respiratory panel to rule out any influenza or other viral infections. Currently patient's oxygen saturation is maintained with nonrebreather. 2. History of chronic obstructive pulmonary disease (COPD) with bronchiectasis, on chronic suppression antibiotic therapy. Uses three liters nasal cannula at baseline. Patient's rotating regimen is Bactrim, Augmentin, and Cipro. Patient received a dose of intravenous (IV) Solu-Medrol in the emergency room. 3. History of interstitial pulmonary fibrosis. 4. Gastroesophageal reflux disease. Patient is continued on Pepcid 40 mg per feeding tube. 5. History of frequent aspiration pneumonia. Has a percutaneous endoscopic gastrostomy (PEG) tube in place. Patient continues with his tube feedings. 6. History of tonsillar cancer status post jaw reconstruction and radiation. Patient will take all his medication and diet through the percutaneous endoscopic gastrostomy (PEG) tube. 7. Chronic back pain and lumbar stenosis. 8. Deep venous thrombosis (DVT) prophylaxis. Continue heparin.
[2016-09-01] MEDS: MEROPENEM INJ 1 GM in D5W MINI-BAG PLUS 100 ML IV SCH (16:00)
[2016-09-01] MEDS ORDERED: MEROPENEM INJ 2 GM in NS 100 ML IV SCH (16:00)
--- NOTE | 2016-09-01 16:13 | EDDOCDS ---
Nurse's Notes [facility] Name: Jadon Grove Age: 66 yrs Sex: Male : 1950 Arrival Date: 09/01/2016 Time: 09:13 Bed 1 Private MD: JV Yoo Diagnosis: Pneumonia due to other specified infectious organisms Presentation: 09/01 09:20 Presenting complaint: states: states was here Thursday with SOB, Dx pneumonia, ml6 became SOB around 0530. Adult Sepsis Screening: The patient does not have new or worsening altered mentation. Patient's respiratory rate is less than 22. Systolic blood pressure is greater than 100. Patient has a qSOFA score of 0- Negative Sepsis Screen. Suicide/Homicide risk assessment- the patient denies having any suicidal and/or homicidal ideations and does not present with any other emotional, behavioral or mental health complaints. Status: Patient is not a car servicer or dependent. Transition of care: patient was not received from another setting of care. Red Flag criteria, patient assessed and taken directly to a bed. 09:20 Acuity: LORIN Level 2 ml6 09:20 Method Of Arrival: Walkin/Carried/Asstd ml6 Triage Assessment: 09:20 General: Appears distressed. Pain: Denies pain. The patient is triaged at the bedside. ml6 See Assessment in Nurses Notes section of ED record. Neurological: No deficits noted. Level of Consciousness is awake, alert. Cardiovascular: No deficits noted. Capillary refill < 3 seconds is brisk in bilateral fingers toes Heart tones S1 S2 present. Respiratory: Onset: The symptoms/episode began/occurred yesterday, Airway is patent Respiratory effort is even, labored, Respiratory pattern is regular, symmetrical, Breath sounds are coarse expiratory bilaterally. Reports shortness of breath at rest. GI: No deficits noted. Historical: - Allergies: Flagyl (Rash); - Home Meds: 1. Advair Diskus 115/21 mcg/dose Inhl dsdv 1 puff 2 times per day (Last dose: 09/01/2016 07:00) 2. albuterol sulfate 2.5 mg/0.5 mL Inhl nebu 3 times per day (Last dose: 09/01/2016 07:00) 3. albuterol sulfate 90 mcg/actuation Inhl aepb 2 puffs every 4 hours As needed (Last dose: 09/01/2016 07:00) 4. aspirin 81 mg Oral tab 1 tab once daily (Last dose: 09/01/2016 07:00) 5. Oxygen 3LNC (Last dose: 09/01/2016 09:25) 6. prednisone 10 mg Oral tab once daily (Last dose: 09/01/2016 07:00) 7. Vitamin Oral tab 1 tab once daily (Last dose: 09/01/2016 07:00) 8. ranitidine HCl 75 mg Oral tab 1 tab once daily (Last dose: 09/01/2016 07:00) 9. Bactrim DS 800-160 mg Oral tab 1 tab 2 times per day (Last dose: 09/01/2016 07:00) - PMHx: Cancer Right Tonsil; COPD; Pneumonia; - PSHx: oral surgery; right foot surgery; Cataract Surgery- Bilateral; - Social history: Smoking status: Patient states former smoker of tobacco. No barriers to communication noted, Speaks appropriately for age. - Family history: Not pertinent. - : The pt / caregiver states he / she is not on anticoagulants. Home medication list is obtained from the patient. - Exposure Risk Screening:: None identified. Screenin:32 Screening information is obtained from the patient. Fall risk: At risk due to age. js13 Assistance ADL's: requires no assistance with activities of daily living. Abuse/DV Screen: The patient / caregiver reports he/she is: not in a situation that causes fear, pain or injury. Nutritional screening: No deficits noted. Advance Directives: There is no active DNR order. home support is adequate. Assessment: 09:32 General: Appears distressed, Behavior is appropriate for age, cooperative. Pain: Denies js13 pain. Neurological: Level of Consciousness is awake, alert. Cardiovascular: Rhythm is sinus tachycardia Chest pain is denied. Respiratory: Airway is patent Respiratory effort is labored, Respiratory pattern is tachypnea Breath sounds are coarse Breath sounds with rhonchi Breath sounds are diminished. Derm: Skin is dusky. 10:16 General: Appears comfortable, Behavior is appropriate for age, cooperative. Pain: js13 Denies pain. Neurological: Level of Consciousness is awake, alert. Cardiovascular: Rhythm is sinus tachycardia Chest pain is denied. Respiratory: Airway is patent Respiratory effort is even, unlabored, Respiratory pattern is tachypnea. Derm: Skin is pink, warm & dry. 11:47 General: Appears in no apparent distress. Respiratory: Airway is patent Respiratory rs3 effort is labored, Respiratory pattern is regular, symmetrical, on 15 L nonrebreather mask. sat 95%. breathes easy at rest. labored breathing and desats to 85% with standing at bedside /activity. denies of pain. denies productive sputum. advised to obtain sputum culture. family at bedside. will continue to mornitor Breath sounds are coarse bilaterally. 12:57 General: Appears in no apparent distress, Behavior is cooperative, breathes easy at rs3 rest. on ventri mask. family at bedside. productive sputum with white frothy and yellow color watery consistency. sent for sputum culture. denies of pain. call smith in reach. . 13:50 General: Appears in no apparent distress, Behavior is appropriate for age, cooperative, rs3 resting comfortable on stretcher. breathes easy with ventrimask. sleeping. easily aware. denies any acute distress. 14:50 General: Appears in no apparent distress, Behavior is cooperative, resting comfortable. rs3 breathes easy on venturi mask 50%. sat 97%. family at bedside. denies of pain/distress. 15:50 General: Appears in no apparent distress, Behavior is appropriate for age, cooperative, rs3 Denies of pain/distress. breathes easy on Venti mask 40%. tolerating well. . Vital Signs: 09:15 Pulse 126; Pulse Ox 69% on 4 lpm NC; jrd 09:26 BP 174 / 81 (auto/); ml6 09:26 Pulse 116 MON; Resp 26; Temp 103.6(TE); Pulse Ox 95% on 100% Non-rebreather mask; Pain ml6 0/10; 09:41 BP 156 / 73 (auto/); js13 09:41 Pulse 114 MON; Resp 18; Pulse Ox 91% on 3 lpm NC; js13 09:45 Weight 72.57 kg; Height 6 ft. 1 in. (185.42 cm); js13 09:45 BP 149 / 71 (auto/); js13 09:45 Pulse 114 MON; Resp 18; Pulse Ox 90% on Non-rebreather mask; js13 09:48 BP 136 / 66 (auto/); js13 09:48 Pulse 114 MON; Resp 18; Pulse Ox 91% on Non-rebreather mask; js13 10:03 BP 111 / 56 (auto/); js13 10:03 Pulse 117 MON; Resp 18; Pulse Ox 92% on Non-rebreather mask; js13 10:19 BP 111 / 65 (auto/); js13 10:19 Pulse 114 MON; Resp 18; Pulse Ox 91% on Non-rebreather mask; js13 10:33 BP 105 / 61 (auto/); js13 10:33 Pulse 112 MON; Resp 20; Pulse Ox 90% on Non-rebreather mask; js13 10:48 BP 106 / 64 (auto/); rs3 10:52 Temp 100.4(TE); js13 10:53 Pulse 107 MON; Pulse Ox 90% ; rs3 11:03 BP 110 / 55 (auto/); rs3 11:04 Pulse 105 MON; Pulse Ox 91% ; rs3 11:19 BP 115 / 64 (auto/); rs3 11:20 Pulse 101 MON; Pulse Ox 93% ; rs3 11:33 BP 102 / 55 (auto/); rs3 11:34 Pulse 97 MON; Pulse Ox 94% ; rs3 11:40 Pulse 95 MON; Pulse Ox 94% ; rs3 11:48 BP 117 / 77 (auto/); rs3 11:48 Pulse 98 MON; Pulse Ox 91% ; rs3 12:03 BP 115 / 67 (auto/); rs3 12:04 Pulse 95 MON; Pulse Ox 91% ; rs3 12:19 BP 117 / 68 (auto/); rs3 12:20 Pulse 92 MON; Pulse Ox 90% ; rs3 12:33 BP 115 / 66 (auto/); rs3 12:34 Pulse 90 MON; Pulse Ox 90% ; rs3 12:48 BP 109 / 56 (auto/); rs3 12:49 Pulse 89 MON; Pulse Ox 91% ; rs3 13:03 BP 109 / 55 (auto/); rs3 13:04 Pulse 85 MON; Pulse Ox 92% ; rs3 13:19 BP 111 / 58 (auto/); rs3 13:20 Pulse 82 MON; Pulse Ox 93% ; rs3 13:33 BP 109 / 61 (auto/); rs3 13:34 Pulse 82 MON; Pulse Ox 93% ; rs3 13:48 BP 107 / 62 (auto/); rs3 13:49 Pulse 81 MON; Pulse Ox 93% ; rs3 14:03 BP 109 / 62 (auto/); rs3 14:04 Pulse 80 MON; Pulse Ox 94% ; rs3 14:19 BP 113 / 62 (auto/); rs3 14:20 Pulse 77 MON; Pulse Ox 95% ; rs3 14:33 BP 115 / 63 (auto/); rs3 14:34 Pulse 77 MON; Pulse Ox 95% ; rs3 14:48 BP 119 / 67 (auto/); rs3 14:49 Pulse 77 MON; Pulse Ox 95% ; rs3 15:04 BP 121 / 69 (auto/); rs3 15:05 BP 121 / 69; Pulse 77 MON; Resp 18; Temp 97(O); Pulse Ox 96% on Venturi mask; Pain 0/10;rs3 15:19 BP 119 / 61 (auto/); rs3 15:23 Pulse 77 MON; Pulse Ox 90% ; rs3 15:33 BP 109 / 59 (auto/); rs3 15:34 Pulse 76 MON; Pulse Ox 90% ; rs3 15:48 BP 116 / 73 (auto/); rs3 15:49 Pulse 78 MON; Pulse Ox 92% ; rs3 16:04 BP 115 / 71 (auto/); rs3 16:05 Pulse 78 MON; Pulse Ox 91% ; rs3 09:45 Body Mass Index 21.11 (72.57 kg, 185.42 cm) js13 Vitals: 09:15 RN notified that patient meets Red Flag criteria. jrd 09:28 Log In Time: September 01, 2016 at 09:00. ml6 ED Course: 09:14 Patient visited by Bharat Santos PCA. jrd 09:14 Patient moved to Waiting jrd 09:15 Fredo [facility] is Private Physician. jrd 09:15 Patient moved to 1 mt4 09:16 Patient visited by Bharat Santos PCA. jrd 09:21 Miranda Johnson MD is Attending Physician. sd1 09:21 Patient visited by Miranda Johnson MD. sd1 09:23 Triage Initiated ml6 09:23 EKG done. (by ED staff). Reviewed by Miranda Johnson MD. jml1 09:30 -Arterial Blood Gas Sent. cs15 09:32 The patient / caregiver is instructed regarding the plan of care and ED course. Cardiac js13 monitor on. Pulse ox on. NIBP on. :32 BLOOD CULTURES Sent. js13 09:32 Lactic Acid (Mchugh tube on ice) Sent. js13 09:32 -Blood Culture Sent. js13 09:32 B-Type Natiuretic Peptide Sent. js13 09:32 Basic Metabolic Profile Sent. js13 09:32 CBC with Diff Sent. 13 09:32 Cardiac Injury Profile Sent. 13 09:32 Troponin Sent. js13 09:32 -Influenza A&B Rapid Antigen - Nose Sent. js13 09:32 Inserted saline lock: 18 gauge in left forearm and blood collected. The patient js13 tolerated the procedure well. No procedures done that require assistance. Labs drawn. (by ED staff). Sent per order to lab. Labs/Blood culture drawn. O2 via nasal cannula \T\ 4L/min. 09:34 Patient visited by Nadira Urbano RN. js13 09:43 RESPIRATORY PANEL Sent. js13 10:08 [facility] Payment Agreement was scanned into [employer] and attached to record. lg 10:15 DIFFERENTIAL NO CHARGE Sent. js13 10:21 Patient visited by Nadira Urbano,LISSA. js13 10:32 Chest, 1 View Returned. EDMS 10:48 Leta Benitez supervisor concrete stone finishing. ys2 10:56 Leta Benitez is Hospitalizing Provider. sd1 11:34 Radha Vera RN is Primary Nurse. rs3 11:46 Patient visited by Radha Vrea RN. rs3 12:57 Patient visited by Radha Vera RN. rs3 14:11 Patient visited by Radha Vera RN. rs3 15:43 T-Sheet-- Draft Copy was scanned into Med[employer] and attached to record. gb 15:43 ECG/EKG was scanned into [employer] and attached to record. gb Administered Medications: 09:28 Drug: Solu-MEDROL 125 mg [Solu-Medrol 500 mg intravenous solution (125 mg)] Route: IVP; froyk Site: left wrist; 09:30 Drug: Albuterol-Ipratropium 1 neb [ipratropium-albuterol 0.5 mg-3 mg(2.5 mg base)/3 mL cs15 nebulization soln (1 neb)] Route: Nebulizer; 09:44 Drug: Acetaminophen 650 mg [acetaminophen 325 mg tablet (2 tabs)] {Note: gave liquid js13 per dr queen.} Route: PO; 10:52 Follow up: Temp 100.4 Temporal; Response: Temperature is decreased js13 09:45 Drug: Albuterol-Ipratropium 1 neb [ipratropium-albuterol 0.5 mg-3 mg(2.5 mg base)/3 mL cs15 nebulization soln (1 neb)] Route: Nebulizer; 09:55 Drug: Albuterol-Ipratropium 1 neb [ipratropium-albuterol 0.5 mg-3 mg(2.5 mg base)/3 mL cs15 nebulization soln (1 neb)] Route: Nebulizer; 09:55 Drug: Imipenem-Cilastatin 500 mg [imipenem-cilastatin 500 mg intravenous solution] js13 Route: IVPB; Rate: 100 mL/hr; Infused Over: 1 hrs; Site: left forearm; 10:52 Follow up: IV Status: Completed infusion; IV Intake: 100ml js13 16:10 Drug: Meropenem 2 grams Route: IV; Rate: 200 mL/hr; Site: left antecubital; rs3 Intake: 10:52 IV: 100.00ml; Total: 100.00ml. js13 RT: 09:30 ABG's drawn from right radial artery allens test done and positive pressure held for 5 cs15 minutes no bleeding noted pressure bandage applied specimen sent pt. tolerated well. O2 via non-rebreather Flush. Respiratory: Respiratory effort is labored, Respiratory pattern is regular Breath sounds with rhonchi bilaterally. Order Results: Lab Order: -Arterial Blood Gas; SPEC'M 09/01/16 09:26 Test: ABG pH (ARTERIAL); Value: 7.417; Range: 7.350-7.450; Units: UNITS; Status: F Test: ABG PARTIAL PRESSURE CO2; Value: 46.6; Range: 35.0-45.0; Abnormal: Above high normal; Units: mmHg; Status: F Test: ABG PARTIAL PRESSURE O2; Value: 87.0; Range: 75.0-100.0; Units: mmHg; Status: F Test: ABG TOTAL CO2; Value: 30.8; Range: 23.0-31.0; Units: MEQ/L; Status: F Test: ABG HCO3; Value: 29.3; Range: 22.0-26.0; Abnormal: Above high normal; Units: MEQ/L; Status: F Test: ABG BASE EXCESS; Value: 3.9; Range: -2.0-2.0; Abnormal: Above high normal; Status: F Test: ABG STANDARD HCO3; Value: 28.0; Range: 22.0-26.0; Abnormal: Above high normal; Units: MEQ/L; Status: F Test: ABG O2 SATURATION; Value: 97.2; Range: 95.0-99.0; Units: %; Status: F Test: ABG DEVICE; Value: NASAL JUDSON; Status: F Lab Order: B-Type Natiuretic Peptide; SPEC'M 09/01/16 09:28 Test: BRAIN NATRIURETIC PEPTIDE; Value: 42.2; Range: <100; Units: PG/ML; Status: F Lab Order: Basic Metabolic Profile; SPEC'M 09/01/16 09:27 Test: GLUCOSE, FASTING; Value: 130; Range: 80-110; Abnormal: Above high normal; Units: MG/DL; Status: F Test: BLOOD UREA NITROGEN; Value: 16; Range: 7-18; Units: MG/DL; Status: F Test: CREATININE FOR GFR; Value: 1.01; Range: 0.70-1.30; Units: MG/DL; Status: F Test: GLOMERULAR FILTRATION RATE; Value: > 60.0; Range: >49; Status: F Test: SODIUM LEVEL; Value: 136; Range: 136-145; Units: MEQ/L; Status: F Test: POTASSIUM SERUM; Value: 4.4; Range: 3.5-5.1; Units: MEQ/L; Status: F Test: CHLORIDE LEVEL; Value: 96; Range: 98-107; Abnormal: Below low normal; Units: MEQ/L; Status: F Test: CARBON DIOXIDE LEVEL; Value: 32; Range: 21-32; Units: MEQ/L; Status: F Test: ANION GAP; Value: 8; Range: 8-16; Units: MEQ/L; Status: F Test: CALCIUM LEVEL; Value: 8.9; Range: 8.8-10.2; Units: MG/DL; Status: F Test Note: ; Units are mL/min/1.73 m2 Chronic Kidney Disease Staging per NKF: Stage I & II GFR >=60 Normal to Mildly Decreased Stage III GFR 30-59 Moderately Decreased Stage IV GFR 15-29 Severely Decreased Stage V GFR <15 Very Little GFR Left ESRD GFR <15 on COMMODITY TRADER Lab Order: CBC with Diff; SPEC'M 09/01/16 09:27 Test: WHITE BLOOD COUNT; Value: 12.0; Range: 4.0-10.0; Abnormal: Above high normal; Units: K/mm3; Status: F Test: RED BLOOD COUNT; Value: 4.34; Range: 4.30-6.10; Units: M/mm3; Status: F Test: HEMOGLOBIN; Value: 15.0; Range: 14.0-18.0; Units: g/dl; Status: F Test: HEMATOCRIT; Value: 45.2; Range: 42.0-52.0; Units: %; Status: F Test: MEAN CORPUSCULAR VOLUME; Value: 104.2; Range: 80.0-96.0; Abnormal: Above high normal; Units: fl; Status: F Test: MEAN CORPUSCULAR HEMOGLOBIN; Value: 34.6; Range: 27.0-33.0; Abnormal: Above high normal; Units: pg; Status: F Test: MEAN CORPUSCULAR HGB CONC; Value: 33.2; Range: 32.0-36.5; Units: g/dl; Status: F Test: RED CELL DISTRIBUTION WIDTH; Value: 13.9; Range: 11.5-14.5; Units: %; Status: F Test: PLATELET COUNT, AUTOMATED; Value: 234; Range: 150-450; Units: k/mm3; Status: F Test: NEUTROPHILS; Value: 75; Range: 35-75; Units: %; Status: F Test: BANDS; Value: 7; Range: < 11; Units: %; Status: F Test: LYMPHOCYTES; Value: 14; Range: 16-52; Abnormal: Below low normal; Units: %; Status: F Test: MONOCYTES; Value: 2; Range: 0-8; Units: %; Status: F Test: BASOPHILS; Value: 1; Range: 0-4; Units: %; Status: F Test: ATYPICAL LYMPH; Value: 1; Range: 0-5; Units: %; Status: F Test: ANISOCYTOSIS; Value: 2+; Status: F Test: MACROCYTOSIS; Value: 1+; Status: F Test: TOXIC GRANULATION; Value: 1+; Status: F Lab Order: Cardiac Injury Profile; 09/01/16 09:27 Test: CPK CREATINE PHOSPHOKINASE; Value: 150; Range: 39-308; Units: U/L; Status: F Test: CK-MB VALUE MASS; Value: 1.0; Range: 0.0-3.6; Units: NG/ML; Status: F Test: MB/CK RELATIVE INDEX; Value: 0.66; Range: < OR =4; Status: F Test Note: ; DIAGNOSIS CRITERIA MMB ng/ml Relative Index (RI) NON-AMI < or = 5 N/A MCHUGH ZONE > 5 < or = 4 AMI > 5 > 4 Lab Order: Troponin; 09/01/16 09:27 Test: TROPONIN I; Value: 0.05; Range: < 0.10; Units: NG/ML; Status: F Test Note: ; Troponin I Reference Interval for [place] LOCI: 99th Percentile= 0.00-0.045 ng/ml Risk Stratification: <= 0.10 ng/ml Decreased Risk for Adverse Clinical Events. 0.10-1.50 ng/ml Increased Risk for Adverse Clinical Events. Evaluation of additional criterion and/or repeat testing in 2-6 hours is suggested to rule out myocardial damage. >= 1.50 ng/ml Indicative of Myocardial Injury. Lab Order: Lactic Acid (Mchugh tube on ice); 09/01/16 09:28 Test: LACTIC ACID SEPSIS PROTOCOL; Value: 1.8; Range: 0.4-2.0; Units: MMOL/L; Status: F Lab Order: -Influenza A&B Rapid Antigen - Nose; 09/01/16 09:37 Test: INFLUENZA A RAPID SCR by ICA; Value: INFLUENZA A RESULTS NEGATIVE; Status: F Test: INFLUENZA A RAPID SCR by ICA; Value: Comments:; Status: F Test: INFLUENZA B RAPID SCR by ICA; Value: INFLUENZA B RESULTS NEGATIVE; Status: F Test Note: ; The Influenza test is a direct rapid immunoassay for the qualitative detection of Influenza viral antigen. Cell culture (Viral Culture) testing should be considered to confirm NEGATIVE results and to assist in detecting other viruses that can provide similar clinical symptoms. Please contact the lab within 24 hours ([phone]) if confirmatory testing is desired. Lab Order: RESPIRATORY PANEL; SPEC'M 09/01/16 09:37 Test: RESPIRATORY PANEL; Value: RP PANEL RESULT POSITIVE by PCR; Abnormal: Abnormal; Status: F Test: RESPIRATORY PANEL; Value: Comments:; Status: F Test: RESPIRATORY PANEL; Value: ORGANISM 1: PARAINFLUENZA 3 (PIV3); Status: F Test: RESPIRATORY PANEL; Value: PARAINFLUENZA 3 (PIV3); Status: F Test: RESPIRATORY PANEL; Value: PIV3 1 Parainfluenza 3 (PIV 3) is usually seen in children; Status: F Test: RESPIRATORY PANEL; Value: PIV3 2 under 6 months old. Outbreaks have been seen; Status: F Test: RESPIRATORY PANEL; Value: PIV3 3 in intensive care units and epidemics are; Status: F Test: RESPIRATORY PANEL; Value: PIV3 4 most common in the spring and summer. Symptoms; Status: F Test: RESPIRATORY PANEL; Value: PIV3 5 of PIV 3 usually include bronchiolitis, bronchitis,; Status: F Test: RESPIRATORY PANEL; Value: PIV3 6 and pneumonia.; Status: F Test Note: ; This respiratory PCR panel detects Influenza A H1, H3 and 2009 H1 viruses, Influenza B virus, Respiratory syncytial virus, Human metapneumovirus, Parainfluenza virus 1, 2, 3 and 4, Adenovirus, Rhinovirus/Enterovirus, Coronavirus HKU1, NL63, OC43 and 229E, Bordetella pertussis, Mycoplasma pneumoniae and Chlamydia pneumoniae. Lab Order: PLATELET ESTIMATE; SPEC'M 09/01/16 09:27 Test: PLATELET ESTIMATE; Value: NORMAL; Range: NORMAL; Status: F Lab Order: SPUTUM CULTURE AND GRAM STAIN; SPEC'M 09/01/16 12:50 Test: GRAM STAIN; Value: GRAM STAIN RESULT; Status: F Test: GRAM STAIN; Value: QUALITY: GOOD; Status: F Test: GRAM STAIN; Value: FEW EPITHELIAL CELLS; Status: F Test: GRAM STAIN; Value: MANY WBCS; Status: F Test: GRAM STAIN; Value: FEW GRAM NEGATIVE RODS; Status: F Test: GRAM STAIN; Value: MODERATE GRAM POSITIVE COCCI IN PAIRS; Status: F Test: GRAM STAIN; Value: FEW GRAM POSITIVE RODS; Status: F Radiology Order: Chest, 1 View Test: Chest, 1 View REASON FOR EXAMINATION: Shortness of Breath; Clinical: Shortness of breath.; ; Comparison: 08/30/2016.; ; Findings: Mediastinum and cardiac silhouette are stable. Lung randall; demonstrate diffuse chronic interstitial changes. Acute on chronic lower lobe; infiltrates cannot be excluded. No effusion. No pneumothorax. Skeletal; structures stable.; ; Impression:; Diffuse chronic interstitial changes. Acute on chronic bibasilar infiltrates; (right greater than left) cannot be excluded. Findings similar to recent prior; examination.; ; ; Signed by; Ankush Galvan MD 09/01/2016 10:06 A; Outcome: 10:56 Decision to Hospitalize by Provider. sd1 16:06 Discharge Assessment: patient administered narcotics - no. The following High Risk rs3 Discharge criteria are identified: None. Admitted to ICU accompanied by nurse, accompanied by tech, via stretcher, with oxygen, on monitor, with chart. Condition: stable. No special radiology studies were completed. Property :Personal belongings accompany Pt. 16:12 Patient left the ED. rs3 Signatures: Dispatcher [employer] EDMiranda Ulloa MD MD sd1 Manuel Blackmon,RN RN jmk Sylvia Callejas, Reg Reg gb Rowena Olivas, Reg Reg lg Rich, Chasity mt4 Radha VeraRN RN rs3 Ricardo Berry, RN RN ml6 Virgilio Holman jml1 Nadira Urbano,RN RN js13 Bharat Santos, EVELYN HERB GROWER jrd Romain Lee,RT RT cs15 Leta Benitez ys2 MTDD
--- NOTE | 2016-09-01 16:13 | EDDOCDS ---
Physician Documentation [facility] Name: Jadon Grove Age: 66 yrs Sex: Male : 1950 Arrival Date: 09/01/2016 Time: 09:13 Bed 1 Private MD: JV Yoo Disposition: 09/01/16 10:56 Hospitalization ordered by Leta Benitez for Inpatient Admission. Preliminary diagnosis is Pneumonia due to other specified infectious organisms. - Bed requested for M ICU. - Status is Inpatient Admission. rs3 - Condition is Stable. - Problem is new. - Symptoms are unchanged. Historical: - Allergies: Flagyl (Rash); - Home Meds: 1. Advair Diskus 115/21 mcg/dose Inhl dsdv 1 puff 2 times per day (Last dose: 09/01/2016 07:00) 2. albuterol sulfate 2.5 mg/0.5 mL Inhl nebu 3 times per day (Last dose: 09/01/2016 07:00) 3. albuterol sulfate 90 mcg/actuation Inhl aepb 2 puffs every 4 hours As needed (Last dose: 09/01/2016 07:00) 4. aspirin 81 mg Oral tab 1 tab once daily (Last dose: 09/01/2016 07:00) 5. Oxygen 3LNC (Last dose: 09/01/2016 09:25) 6. prednisone 10 mg Oral tab once daily (Last dose: 09/01/2016 07:00) 7. Vitamin Oral tab 1 tab once daily (Last dose: 09/01/2016 07:00) 8. ranitidine HCl 75 mg Oral tab 1 tab once daily (Last dose: 09/01/2016 07:00) 9. Bactrim DS 800-160 mg Oral tab 1 tab 2 times per day (Last dose: 09/01/2016 07:00) - PMHx: Cancer Right Tonsil; COPD; Pneumonia; - PSHx: oral surgery; right foot surgery; Cataract Surgery- Bilateral; - Social history: Smoking status: Patient states former smoker of tobacco. No barriers to communication noted, Speaks appropriately for age. - Family history: Not pertinent. - : The pt / caregiver states he / she is not on anticoagulants. Home medication list is obtained from the patient. - Exposure Risk Screening:: None identified. Vital Signs: 09/01 09:15 Pulse 126; Pulse Ox 69% on 4 lpm NC; jrd 09:26 BP 174 / 81 (auto/); ml6 09:26 Pulse 116 MON; Resp 26; Temp 103.6(TE); Pulse Ox 95% on 100% Non-rebreather mask; Pain ml6 0/10; 09:41 BP 156 / 73 (auto/); js13 09:41 Pulse 114 MON; Resp 18; Pulse Ox 91% on 3 lpm NC; js13 09:45 Weight 72.57 kg / 159.99 lbs; Height 6 ft. 1 in. (185.42 cm); js13 09:45 BP 149 / 71 (auto/); js13 09:45 Pulse 114 MON; Resp 18; Pulse Ox 90% on Non-rebreather mask; js13 09:48 BP 136 / 66 (auto/); js13 09:48 Pulse 114 MON; Resp 18; Pulse Ox 91% on Non-rebreather mask; js13 10:03 BP 111 / 56 (auto/); js13 10:03 Pulse 117 MON; Resp 18; Pulse Ox 92% on Non-rebreather mask; js13 10:19 BP 111 / 65 (auto/); js13 10:19 Pulse 114 MON; Resp 18; Pulse Ox 91% on Non-rebreather mask; js13 10:33 BP 105 / 61 (auto/); js13 10:33 Pulse 112 MON; Resp 20; Pulse Ox 90% on Non-rebreather mask; js13 10:48 BP 106 / 64 (auto/); rs3 10:52 Temp 100.4(TE); js13 10:53 Pulse 107 MON; Pulse Ox 90% ; rs3 11:03 BP 110 / 55 (auto/); rs3 11:04 Pulse 105 MON; Pulse Ox 91% ; rs3 11:19 BP 115 / 64 (auto/); rs3 11:20 Pulse 101 MON; Pulse Ox 93% ; rs3 11:33 BP 102 / 55 (auto/); rs3 11:34 Pulse 97 MON; Pulse Ox 94% ; rs3 11:40 Pulse 95 MON; Pulse Ox 94% ; rs3 11:48 BP 117 / 77 (auto/); rs3 11:48 Pulse 98 MON; Pulse Ox 91% ; rs3 12:03 BP 115 / 67 (auto/); rs3 12:04 Pulse 95 MON; Pulse Ox 91% ; rs3 12:19 BP 117 / 68 (auto/); rs3 12:20 Pulse 92 MON; Pulse Ox 90% ; rs3 12:33 BP 115 / 66 (auto/); rs3 12:34 Pulse 90 MON; Pulse Ox 90% ; rs3 12:48 BP 109 / 56 (auto/); rs3 12:49 Pulse 89 MON; Pulse Ox 91% ; rs3 13:03 BP 109 / 55 (auto/); rs3 13:04 Pulse 85 MON; Pulse Ox 92% ; rs3 13:19 BP 111 / 58 (auto/); rs3 13:20 Pulse 82 MON; Pulse Ox 93% ; rs3 13:33 BP 109 / 61 (auto/); rs3 13:34 Pulse 82 MON; Pulse Ox 93% ; rs3 13:48 BP 107 / 62 (auto/); rs3 13:49 Pulse 81 MON; Pulse Ox 93% ; rs3 14:03 BP 109 / 62 (auto/); rs3 14:04 Pulse 80 MON; Pulse Ox 94% ; rs3 14:19 BP 113 / 62 (auto/); rs3 14:20 Pulse 77 MON; Pulse Ox 95% ; rs3 14:33 BP 115 / 63 (auto/); rs3 14:34 Pulse 77 MON; Pulse Ox 95% ; rs3 14:48 BP 119 / 67 (auto/); rs3 14:49 Pulse 77 MON; Pulse Ox 95% ; rs3 15:04 BP 121 / 69 (auto/); rs3 15:05 BP 121 / 69; Pulse 77 MON; Resp 18; Temp 97(O); Pulse Ox 96% on Venturi mask; Pain 0/10;rs3 15:19 BP 119 / 61 (auto/); rs3 15:23 Pulse 77 MON; Pulse Ox 90% ; rs3 15:33 BP 109 / 59 (auto/); rs3 15:34 Pulse 76 MON; Pulse Ox 90% ; rs3 15:48 BP 116 / 73 (auto/); rs3 15:49 Pulse 78 MON; Pulse Ox 92% ; rs3 16:04 BP 115 / 71 (auto/); rs3 16:05 Pulse 78 MON; Pulse Ox 91% ; rs3 09:45 Body Mass Index 21.11 (72.57 kg, 185.42 cm) js13 MDM: 09:22 Solu-MEDROL 125 mg IVP once ordered. sd1 09:22 -Blood Culture (Adults Only), peripheral from different site, or from device/port/PICC sd1 etc. if present ordered. 09:22 Call Respiratory ordered. sd1 09:22 Car Pre Cooler/Pulse Ox/q 15 min VS ordered. sd1 09:22 IV Saline Lock ordered. sd1 09:22 Oxygen at 4L/Min NC or Home dosage ordered. sd1 09:22 Rhythm Strip to chart ordered. sd1 09:22 Albuterol-Ipratropium 1 neb Nebulizer every 20 minutes x3 ordered. sd1 09:23 -Arterial Blood Gas Ordered. EDMS 09:23 B-Type Natiuretic Peptide Ordered. EDMS 09:23 Basic Metabolic Profile Ordered. EDMS 09:23 CBC with Diff Ordered. EDMS 09:23 Cardiac Injury Profile Ordered. EDMS 09:23 Troponin Ordered. EDMS 09:23 Lactic Acid (Mchugh tube on ice) Ordered. EDMS 09:23 -Blood Culture Ordered. EDMS 09:23 Acetaminophen Tablet 650 mg PO once; via Gtube ordered. sd1 09:23 Chest, 1 View Ordered. EDMS 09:23 ECG WITH READING ER PHYS+CARDIAG ordered. EDMS 09:25 Call Respiratory complete. mt4 09:27 BLOOD CULTURES Ordered. EDMS 09:31 -Influenza A&B Rapid Antigen - Nose Ordered. EDMS 09:32 Misc Ramp Attendant Order ordered. sd1 09:32 -Blood Culture (Adults Only), peripheral from different site, or from device/port/PICC js13 etc. if present complete. 09:38 BED REQUEST+ADM ordered. EDMS 09:42 Imipenem-Cilastatin 500 mg IVPB at 100 mL/hr once over 1 hrs; reconstitute first with sd1 10mL of NS, then add to 100mL of NS ordered. 09:42 Misc Ramp Attendant Order complete. mt4 09:43 RESPIRATORY PANEL Ordered. EDMS 09:58 -Arterial Blood Gas Reviewed. sd1 10:07 Financial registration complete. lg 10:08 [facility] Payment Agreement was scanned into Scy[employer] and attached to record. lg 10:11 DIFFERENTIAL NO CHARGE Ordered. EDMS 10:11 PLATELET ESTIMATE Ordered. EDMS 10:38 Basic Metabolic Profile Reviewed. sd1 10:38 CBC with Diff Reviewed. sd1 10:38 B-Type Natiuretic Peptide Reviewed. sd1 10:38 Cardiac Injury Profile Reviewed. sd1 10:38 Troponin Reviewed. sd1 10:38 Lactic Acid (Mchugh tube on ice) Reviewed. sd1 10:38 -Influenza A&B Rapid Antigen - Nose Reviewed. sd1 10:38 Chest, 1 View Reviewed. sd1 10:55 SPUTUM CULTURE AND GRAM STAIN Ordered. EDMS 11:09 CBC with Diff Reviewed. sd1 11:09 PLATELET ESTIMATE Reviewed. sd1 11:14 Admission / Observation Status ordered. EDMS 15:43 T-Sheet-- Draft Copy was scanned into Scytl and attached to record. gb 15:43 ECG/EKG was scanned into Scytl and attached to record. gb 16:10 Meropenem 2 grams IV at 200 mL/hr once ordered. rs3 Administered Medications: 09:28 Drug: Solu-MEDROL 125 mg [Solu-Medrol 500 mg intravenous solution (125 mg)] Route: IVP; [facility] Site: left wrist; 09:30 Drug: Albuterol-Ipratropium 1 neb [ipratropium-albuterol 0.5 mg-3 mg(2.5 mg base)/3 mL cs15 nebulization soln (1 neb)] Route: Nebulizer; 09:44 Drug: Acetaminophen 650 mg [acetaminophen 325 mg tablet (2 tabs)] {Note: gave liquid js13 per dr queen.} Route: PO; 10:52 Follow up: Temp 100.4 Temporal; Response: Temperature is decreased js13 09:45 Drug: Albuterol-Ipratropium 1 neb [ipratropium-albuterol 0.5 mg-3 mg(2.5 mg base)/3 mL cs15 nebulization soln (1 neb)] Route: Nebulizer; 09:55 Drug: Albuterol-Ipratropium 1 neb [ipratropium-albuterol 0.5 mg-3 mg(2.5 mg base)/3 mL cs15 nebulization soln (1 neb)] Route: Nebulizer; 09:55 Drug: Imipenem-Cilastatin 500 mg [imipenem-cilastatin 500 mg intravenous solution] js13 Route: IVPB; Rate: 100 mL/hr; Infused Over: 1 hrs; Site: left forearm; 10:52 Follow up: IV Status: Completed infusion; IV Intake: 100ml js13 16:10 Drug: Meropenem 2 grams Route: IV; Rate: 200 mL/hr; Site: left antecubital; rs3 Signatures: Dispatcher [employer] EDMiranda Ulloa MD MD sd1 Sylvia Callejas, Reg Reg gb Rowena Olivas, Reg Reg lg Rich, Chasity mt4 Radha VeraRN RN rs3 Ricardo Berry RN RN ml6 Nadira UrbanoRN RN js13 Manuel Blackmon RN, Caleb RT cs15 The chart was reviewed and I authenticate all verbal orders and agree with the evaluation and treatment provided.Attachments: 10:08 [facility] Payment Agreement lg 15:43 T-Sheet-- Draft Copy gb 15:43 ECG/EKG gb MTDD
[2016-09-01] MEDS ORDERED: MEROPENEM 1 GM VIAL (J2185) As Ordered ONE (16:18)
[2016-09-01 16:19] VITALS: BP 112/75
[2016-09-01 17:00] VITALS: BP 101/61
[2016-09-01] MEDS: VANCOMYCIN HCL 1,000 MG, VIAL MATE ADAPTER 1 EACH in D5W 250 ML IV SCH (17:11)
[2016-09-01] MEDS: ASPIRIN 81 MG ENTERIC TAB PEG SCH (17:14)
[2016-09-01] MEDS: THIAMINE 100 MG TAB PEG SCH (17:14)
[2016-09-01] MEDS: NS 1,000 ML IV SCH (17:15)
[2016-09-01 18:00] VITALS: BP 104/64
[2016-09-01] MEDS ORDERED: VANCOMYCIN HCL 500 MG in D5W MINI-BAG PLUS 100 ML IV ONE (18:00)
[2016-09-01 20:00] VITALS: BP 96/65
--- NOTE | 2016-09-01 20:12 | ECGEPIP ---
Stationary ECG Study [facility] - ED Test Date: 2016-09-01 Pat Name: MAULIK VALLEJO Department: Room: [place] [address] Gender: M Cat And Dog Bather: LARRY : 1950 Requested By: Miranda Johnson Order Number: [id number] Reading MD: Miranda Johnson Measurements Intervals [place] Rate: 120 P: -22 GA: 180 QRS: -9 QRSD: 79 T: -11 QT: 279 QTc: 394 Interpretive Statements SINUS TACHYCARDIA MINIMAL ST DEPRESSION ABNORMAL RHYTHM ECG INCREASED RATE/ST CHANGES COMPARED 08/30/16 Electronically Signed On 09-01-2016 20:11:39 EST by Miranda Johnson
[2016-09-01] MEDS: FAMOTIDINE 20 MG TAB PEG SCH (21:55)
[2016-09-01] MEDS: HEPARIN SOD (PORCINE) 5000 UNITS/ML VIAL SC SCH (21:55)
[2016-09-01 22:01] VITALS: BP 112/59
[2016-09-02] VITALS (7 sets, daily range): BP systolic 114–158; BP diastolic 66–90
[2016-09-02] MEDS: MEROPENEM INJ 1 GM in D5W MINI-BAG PLUS 100 ML IV SCH ×3 (00:03→15:47)
[2016-09-02 05:12] LABS: MEAN CORPUSCULAR HEMOGLOBIN 34.3 pg (27.0-33.0); MEAN CORPUSCULAR HGB CONC 33.8 g/dl (32.0-36.5); MEAN CORPUSCULAR VOLUME 101.4 fl (80.0-96.0); RED CELL DISTRIBUTION WIDTH 13.8 % (11.5-14.5); WHITE BLOOD COUNT 11.4 K/mm3 (4.0-10.0)
[2016-09-02] MEDS: VANCOMYCIN HCL 1,000 MG, VIAL MATE ADAPTER 1 EACH in D5W 250 ML IV SCH ×2 (05:22→16:29)
[2016-09-02] MEDS: HEPARIN SOD (PORCINE) 5000 UNITS/ML VIAL SC SCH ×3 (05:23→22:06)
[2016-09-02 05:35] LABS: ANION GAP 4 MEQ/L (8-16); BLOOD UREA NITROGEN 17 MG/DL (7-18); CALCIUM LEVEL 8.5 MG/DL (8.8-10.2); CARBON DIOXIDE LEVEL 33 MEQ/L (21-32); CHLORIDE LEVEL 102 MEQ/L (98-107); CREATININE FOR GFR 0.55 MG/DL (0.70-1.30); GLOMERULAR FILTRATION RATE > 60.0 (>49); GLUCOSE, FASTING 97 MG/DL (80-110); POTASSIUM SERUM 4.3 MEQ/L (3.5-5.1); SODIUM LEVEL 139 MEQ/L (136-145)
[2016-09-02] MEDS: methylPREDNISolone INJ 125 MG/2 ML VIAL (J2930) IV SCH ×3 (07:40→22:07)
[2016-09-02] MEDS: PRENATAL VITAMIN TAB PEG SCH (08:30)
[2016-09-02] MEDS: ASPIRIN 81 MG ENTERIC TAB PEG SCH (08:30)
[2016-09-02] MEDS: THIAMINE 100 MG TAB PEG SCH (08:30)
[2016-09-02] MEDS: NS 1,000 ML IV SCH ×2 (08:33→12:08)
--- NOTE | 2016-09-02 10:36 | IPNPDOC ---
Date Seen The patient was seen on 09/02/16. Progress Note SUBJECTIVE: The patient tells me that he is feeling better today he is breathing a little bit more easily but still tells me he is knowing your closed his baseline OBJECTIVE PHYSICAL EXAMINATION: VITAL SIGNS: Currently requiring 8 L high flow nasal cannula to maintain sats greater than 88 Please see below. 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 RESPIRATORY: Poor air movement dementia breath sounds throughout some mild end expiratory wheeze no rales. ABDOMINAL: PEG tube in place clean dry and intact bowel sounds are present abdomen soft EXTREMITIES: No clubbing Cyanosis or edema LABORATORY DATA: Please see below. MICROBIOLOGY: Parainfluenza positive otherwise negative Please see below. IMAGING: Chest x-ray reveals diffuse chronic interstitial changes acute on chronic bibasilar infiltrates right greater than left DVT prophylaxis ordered?: Heparin every 8 ASSESSMENT AND PLAN: This is a 66-year-old man with significant dyspnea likely multifactorial in nature. Problem #1 dyspnea: Parainfluenza positive, the patient at his baseline is on 10 mg of prednisone daily as well as 3 L of oxygen later to bronchiectasis pulmonary fibrosis and COPD. The patient does have acute on chronic infiltrates on the right lower lobe there is some concern for potential healthcare associated pneumonia and as such the patient is on currently on vancomycin and meropenem. I feel as though this is less likely, we'll check a MRSA screen of the nares of his cultures remain negative, likely narrow antibiotic spectrum tomorrow. This antibiotic regimen he is currently on should adequately cover him for exacerbation of bronchiectasis as well. Of note the patient usually does cycling courses of antibiotics one week per month of Bactrim Augmentin and ciprofloxacin as per his steam shovel operator Dr. Nance. In regards to the patient's COPD we will start him on Solu-Medrol which was started emergency room continue with nebulizer treatments, he appears to be improving at this time. Problem #2 history of oral cancer: Patient is a history of jaw necrosis with recurrent aspirations he is nothing by mouth with a PEG tube in place he is on vitamins aspirin and thiamine. Problem #3 gastric reflux disease: Patient is on Pepcid via his PEG tube DISPOSITION: Currently improving at this time I'll downgraded from ICU status to PCU status and continue to monitor closely still has significant oxygen requirement his clinical status is guarded. VS, I&O, 24H, Fishbone Vital Signs/I&O Vital Signs Date Time Temp Pulse Resp B/P Pulse Ox O2 Delivery O2 Flow Rate FiO2 09/02/16 08:00 97.0 93 22 123/75 91 High Flow Cannula 8.0 09/02/16 04:00 40 I&O- Last 24 Hours up to 6 AM 09/02/16 05:59 Intake Total 1590 ml Output Total 950 ml Balance 640 ml Laboratory Data 24H LABS Laboratory Tests 2 09/02/16 04:34: Anion Gap 4L, C-Reactive Protein, Quantitative 14.50H, Blood Urea Nitrogen 17, Creatinine 0.55L, Sodium Level 139, Potassium Level 4.3, Chloride Level 102, Carbon Dioxide Level 33H, Calcium Level 8.5L, Glomerular Filtration Rate > 60.0 CBC/BMP Laboratory Tests 09/02/16 04:34 Calcium Level 8.5 L, Red Blood Count 3.88 L, Mean Corpuscular Volume 101.4 H, Mean Corpuscular Hemoglobin 34.3 H, Mean Corpuscular Hemoglobin Concent 33.8, Red Cell Distribution Width 13.8 Microbiology Microbiology 09/01/16 Blood Culture - Preliminary, Resulted No growth after 24 hours . All specim... 09/01/16 Blood Culture - Preliminary, Resulted No growth after 24 hours . All specim... 09/01/16 Gram Stain - Final, Resulted 09/01/16 Sputum Culture, Resulted Pending 09/01/16 Respiratory Virus Panel (PCR) (DL) - Final, Complete Parainfluenza 3 (Piv3) 09/01/16 Influenza Virus Type A Antigen - Final, Complete 09/01/16 Influenza Virus Type B Antigen - Final, Complete STAR HAYNES MD Sep 02, 2016 10:36
--- NOTE | 2016-09-02 16:19 | PHACANCOPD ---
PHARMACY VANCOMYCIN DOSING Pt Demographics Demographics Patient Age:66 , Weight:72.200 , Gender: male Adjusted Body Weight Date: 09/02/16, Adjusted Body Weight: [72.5] Kg Events Past 24 Hours Events Past 24 Hours: NO: Change in CrCl, Dialysis, Diuretic Therapy, Elevation in WBC, Fever, Other, Pending Diagnostics, Pending Procedures Vancomycin Vancomycin indication: hcap Vancomycin Target Ranges: 15-20 mcg/ml Vancomycin Load Y/N: Yes Load Dose Date Time Vancomycin Load Dose: 1.5g Date: 09/01/16 Time: 1700 Vancomycin Dose Date: 09/02/16. Current Vancomycin Dose: [1g q12h] Intermittent Dosing?: No Labs Labs Item Value Date Time White Blood Count 12.0 K/mm3 H 09/01/16 09 White Blood Count 11.4 K/mm3 H 09/02/16 0434 Creatinine 1.01 MG/DL 09/01/16 0927 Micro Microbiology 09/01/16 Blood Culture - Preliminary, Resulted No growth after 24 hours . All specim... 09/01/16 Blood Culture - Preliminary, Resulted No growth after 24 hours . All specim... 09/02/16 MRSA Screen, Received Pending 09/01/16 Gram Stain - Final, Resulted 09/01/16 Sputum Culture, Resulted Pending 09/01/16 Respiratory Virus Panel (PCR) (DL) - Final, Complete Parainfluenza 3 (Piv3) 09/01/16 Influenza Virus Type A Antigen - Final, Complete 09/01/16 Influenza Virus Type B Antigen - Final, Complete Creatinine Clearance Date:09/01/16. Creatinine Clearance: [79.1]. Assessment and Plan Maintaining Current Dose?: Yes Reason for dose change: No Dose Change Pharmacist Note Pharmacist Note Date: 09/01/16. Pharmacist note: pt is a 66 year old male being treated for hcap with vancomycin goal trough 15-20mcg/ml. pt has been treated with vancomycin here at [facility] in the past but had greater renal function at that time. a 1.5g ld was gave at 17 and maintenance will consist of 1g q12h starting at 0500 . We will continue to monitor and adjust dose as needed. RAUL MICHAUD PHARMACY Sep 02, 2016 16:18
[2016-09-02] MEDS: FAMOTIDINE 20 MG TAB PEG SCH (22:06)
[2016-09-03] VITALS: BP 135/82
[2016-09-03] MEDS: MEROPENEM INJ 1 GM in D5W MINI-BAG PLUS 100 ML IV SCH ×4 (00:33→23:30)
[2016-09-03] MEDS: NS 1,000 ML IV SCH (00:34)
[2016-09-03 04:00] VITALS: BP 110/67
[2016-09-03] MEDS: VANCOMYCIN HCL 1,000 MG, VIAL MATE ADAPTER 1 EACH in D5W 250 ML IV SCH ×2 (05:31→17:06)
[2016-09-03] MEDS: HEPARIN SOD (PORCINE) 5000 UNITS/ML VIAL SC SCH ×3 (05:32→21:19)
[2016-09-03] MEDS: methylPREDNISolone INJ 125 MG/2 ML VIAL (J2930) IV SCH ×3 (05:32→21:19)
[2016-09-03 06:15] LABS: MEAN CORPUSCULAR HEMOGLOBIN 34.4 pg (27.0-33.0); MEAN CORPUSCULAR HGB CONC 33.2 g/dl (32.0-36.5); MEAN CORPUSCULAR VOLUME 103.7 fl (80.0-96.0); RED CELL DISTRIBUTION WIDTH 13.9 % (11.5-14.5); WHITE BLOOD COUNT 21.2 K/mm3 (4.0-10.0)
[2016-09-03 06:26] LABS: ANION GAP 6 MEQ/L (8-16); BLOOD UREA NITROGEN 17 MG/DL (7-18); CALCIUM LEVEL 8.7 MG/DL (8.8-10.2); CARBON DIOXIDE LEVEL 34 MEQ/L (21-32); CHLORIDE LEVEL 104 MEQ/L (98-107); CREATININE FOR GFR 0.53 MG/DL (0.70-1.30); GLOMERULAR FILTRATION RATE > 60.0 (>49); GLUCOSE, FASTING 128 MG/DL (80-110); POTASSIUM SERUM 4.4 MEQ/L (3.5-5.1); SODIUM LEVEL 144 MEQ/L (136-145)
[2016-09-03 08:00] VITALS: BP 134/82
[2016-09-03] MEDS ORDERED: PREVNAR 13 VACCINE SYRINGE (CPT CODE:90670) IM ONE (09:00)
[2016-09-03] MEDS: ASPIRIN 81 MG ENTERIC TAB PEG SCH (09:00)
[2016-09-03] MEDS: THIAMINE 100 MG TAB PEG SCH (10:03)
[2016-09-03] MEDS: PRENATAL VITAMIN TAB PEG SCH (10:03)
--- NOTE | 2016-09-03 11:33 | IPNPDOC ---
Date Seen The patient was seen on 09/03/16. Progress Note SUBJECTIVE: The patient tells me that he is feeling better today he is breathing is improved OBJECTIVE PHYSICAL EXAMINATION: VITAL SIGNS: Currently requiring 8 L high flow nasal cannula to maintain sats greater than 88 Please see below. 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 RESPIRATORY: Improved air movement dementia breath sounds throughout some mild end expiratory wheeze no rales. ABDOMINAL: PEG tube in place clean dry and intact bowel sounds are present abdomen soft EXTREMITIES: No clubbing Cyanosis or edema LABORATORY DATA: Please see below. MICROBIOLOGY: Parainfluenza positive otherwise negative Please see below. IMAGING: Chest x-ray reveals diffuse chronic interstitial changes acute on chronic bibasilar infiltrates right greater than left DVT prophylaxis ordered?: Heparin every 8 ASSESSMENT AND PLAN: This is a 66-year-old man with significant dyspnea likely multifactorial in nature. Problem #1 dyspnea: Parainfluenza positive, the patient at his baseline is on 10 mg of prednisone daily as well as 3 L of oxygen later to bronchiectasis pulmonary fibrosis and COPD. The patient does have acute on chronic infiltrates on the right lower lobe there is some concern for potential healthcare associated pneumonia and as such the patient is on currently on vancomycin and meropenem day 3. I feel as though this is less likely, we'll check a MRSA screen of the nares of his cultures remain negative, likely narrow antibiotic spectrum in the near future as appropriate. This antibiotic regimen he is currently on should adequately cover him for exacerbation of bronchiectasis as well. Of note the patient usually does cycling courses of antibiotics one week per month of Bactrim Augmentin and ciprofloxacin as per his case management director Dr. Nance. In regards to the patient's COPD we will start him on Solu-Medrol which was started emergency room continue with nebulizer treatments, he appears to be improving at this time. 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 Problem #3 gastric reflux disease: Patient is on Pepcid via his PEG tube DISPOSITION: Currently improving at this time I'll downgraded from PCU status to medical surgical status and continue to monitor closely. VS, I&O, 24H, Fishbone Vital Signs/I&O Vital Signs Date Time Temp Pulse Resp B/P Pulse Ox O2 Delivery O2 Flow Rate FiO2 09/03/16 08:00 96.7 91 20 134/82 90 High Flow Cannula 8.0 09/02/16 04:00 40 I&O- Last 24 Hours up to 6 AM 09/03/16 06:00 Intake Total 2570 ml Output Total 1600 ml Balance 970 ml Laboratory Data 24H LABS Laboratory Tests 2 09/03/16 05:31: Anion Gap 6L, Blood Urea Nitrogen 17, Creatinine 0.53L, Sodium Level 144, Potassium Level 4.4, Chloride Level 104, Carbon Dioxide Level 34H, Calcium Level 8.7L, Glomerular Filtration Rate > 60.0 CBC/BMP Laboratory Tests 09/03/16 05:31 Calcium Level 8.7 L, Red Blood Count 3.73 L, Mean Corpuscular Volume 103.7 H, Mean Corpuscular Hemoglobin 34.4 H, Mean Corpuscular Hemoglobin Concent 33.2, Red Cell Distribution Width 13.9 Microbiology Microbiology 09/01/16 Blood Culture - Preliminary, Resulted No Growth after 48 hours. All Specime... 09/01/16 Blood Culture - Preliminary, Resulted No Growth after 48 hours. All Specime... 09/02/16 MRSA Screen, Received Pending 09/01/16 Gram Stain - Final, Resulted 09/01/16 Sputum Culture - Preliminary, Resulted Staphylococcus Aureus Non-Lactose Dynamics Ax Technical Architect 09/01/16 Respiratory Virus Panel (PCR) (DL) - Final, Complete Parainfluenza 3 (Piv3) 09/01/16 Influenza Virus Type A Antigen - Final, Complete 09/01/16 Influenza Virus Type B Antigen - Final, Complete STAR HAYNES MD Sep 03, 2016 11:33
[2016-09-03] MEDS: ASPIRIN 81 MG CHEW TABLET PEG SCH (14:11)
[2016-09-03 16:05] VITALS: BP 149/87
--- NOTE | 2016-09-03 17:13 | EDDOCDS ---
Physician Documentation [facility] Name: Jadon Grove Age: 66 yrs Sex: Male : 1950 Arrival Date: 09/01/2016 Time: 09:13 Bed 1 Private MD: JV Yoo Disposition: 09/01/16 10:56 Hospitalization ordered by Leta Benitez for Inpatient Admission. Preliminary diagnosis is Pneumonia due to other specified infectious organisms. - Bed requested for M ICU. - Status is Inpatient Admission. rs3 - Condition is Stable. - Problem is new. - Symptoms are unchanged. Historical: - Allergies: Flagyl (Rash); - Home Meds: 1. Advair Diskus 115/21 mcg/dose Inhl dsdv 1 puff 2 times per day (Last dose: 09/01/2016 07:00) 2. albuterol sulfate 2.5 mg/0.5 mL Inhl nebu 3 times per day (Last dose: 09/01/2016 07:00) 3. albuterol sulfate 90 mcg/actuation Inhl aepb 2 puffs every 4 hours As needed (Last dose: 09/01/2016 07:00) 4. aspirin 81 mg Oral tab 1 tab once daily (Last dose: 09/01/2016 07:00) 5. Oxygen 3LNC (Last dose: 09/01/2016 09:25) 6. prednisone 10 mg Oral tab once daily (Last dose: 09/01/2016 07:00) 7. Vitamin Oral tab 1 tab once daily (Last dose: 09/01/2016 07:00) 8. ranitidine HCl 75 mg Oral tab 1 tab once daily (Last dose: 09/01/2016 07:00) 9. Bactrim DS 800-160 mg Oral tab 1 tab 2 times per day (Last dose: 09/01/2016 07:00) - PMHx: Cancer Right Tonsil; COPD; Pneumonia; - PSHx: oral surgery; right foot surgery; Cataract Surgery- Bilateral; - Social history: Smoking status: Patient states former smoker of tobacco. No barriers to communication noted, Speaks appropriately for age. - Family history: Not pertinent. - : The pt / caregiver states he / she is not on anticoagulants. Home medication list is obtained from the patient. - Exposure Risk Screening:: None identified. Vital Signs: 09/01 09:15 Pulse 126; Pulse Ox 69% on 4 lpm NC; jrd 09:26 BP 174 / 81 (auto/); ml6 09:26 Pulse 116 MON; Resp 26; Temp 103.6(TE); Pulse Ox 95% on 100% Non-rebreather mask; Pain ml6 0/10; 09:41 BP 156 / 73 (auto/); js13 09:41 Pulse 114 MON; Resp 18; Pulse Ox 91% on 3 lpm NC; js13 09:45 Weight 72.57 kg / 159.99 lbs; Height 6 ft. 1 in. (185.42 cm); js13 09:45 BP 149 / 71 (auto/); js13 09:45 Pulse 114 MON; Resp 18; Pulse Ox 90% on Non-rebreather mask; js13 09:48 BP 136 / 66 (auto/); js13 09:48 Pulse 114 MON; Resp 18; Pulse Ox 91% on Non-rebreather mask; js13 10:03 BP 111 / 56 (auto/); js13 10:03 Pulse 117 MON; Resp 18; Pulse Ox 92% on Non-rebreather mask; js13 10:19 BP 111 / 65 (auto/); js13 10:19 Pulse 114 MON; Resp 18; Pulse Ox 91% on Non-rebreather mask; js13 10:33 BP 105 / 61 (auto/); js13 10:33 Pulse 112 MON; Resp 20; Pulse Ox 90% on Non-rebreather mask; js13 10:48 BP 106 / 64 (auto/); rs3 10:52 Temp 100.4(TE); js13 10:53 Pulse 107 MON; Pulse Ox 90% ; rs3 11:03 BP 110 / 55 (auto/); rs3 11:04 Pulse 105 MON; Pulse Ox 91% ; rs3 11:19 BP 115 / 64 (auto/); rs3 11:20 Pulse 101 MON; Pulse Ox 93% ; rs3 11:33 BP 102 / 55 (auto/); rs3 11:34 Pulse 97 MON; Pulse Ox 94% ; rs3 11:40 Pulse 95 MON; Pulse Ox 94% ; rs3 11:48 BP 117 / 77 (auto/); rs3 11:48 Pulse 98 MON; Pulse Ox 91% ; rs3 12:03 BP 115 / 67 (auto/); rs3 12:04 Pulse 95 MON; Pulse Ox 91% ; rs3 12:19 BP 117 / 68 (auto/); rs3 12:20 Pulse 92 MON; Pulse Ox 90% ; rs3 12:33 BP 115 / 66 (auto/); rs3 12:34 Pulse 90 MON; Pulse Ox 90% ; rs3 12:48 BP 109 / 56 (auto/); rs3 12:49 Pulse 89 MON; Pulse Ox 91% ; rs3 13:03 BP 109 / 55 (auto/); rs3 13:04 Pulse 85 MON; Pulse Ox 92% ; rs3 13:19 BP 111 / 58 (auto/); rs3 13:20 Pulse 82 MON; Pulse Ox 93% ; rs3 13:33 BP 109 / 61 (auto/); rs3 13:34 Pulse 82 MON; Pulse Ox 93% ; rs3 13:48 BP 107 / 62 (auto/); rs3 13:49 Pulse 81 MON; Pulse Ox 93% ; rs3 14:03 BP 109 / 62 (auto/); rs3 14:04 Pulse 80 MON; Pulse Ox 94% ; rs3 14:19 BP 113 / 62 (auto/); rs3 14:20 Pulse 77 MON; Pulse Ox 95% ; rs3 14:33 BP 115 / 63 (auto/); rs3 14:34 Pulse 77 MON; Pulse Ox 95% ; rs3 14:48 BP 119 / 67 (auto/); rs3 14:49 Pulse 77 MON; Pulse Ox 95% ; rs3 15:04 BP 121 / 69 (auto/); rs3 15:05 BP 121 / 69; Pulse 77 MON; Resp 18; Temp 97(O); Pulse Ox 96% on Venturi mask; Pain 0/10;rs3 15:19 BP 119 / 61 (auto/); rs3 15:23 Pulse 77 MON; Pulse Ox 90% ; rs3 15:33 BP 109 / 59 (auto/); rs3 15:34 Pulse 76 MON; Pulse Ox 90% ; rs3 15:48 BP 116 / 73 (auto/); rs3 15:49 Pulse 78 MON; Pulse Ox 92% ; rs3 16:04 BP 115 / 71 (auto/); rs3 16:05 Pulse 78 MON; Pulse Ox 91% ; rs3 09:45 Body Mass Index 21.11 (72.57 kg, 185.42 cm) js13 MDM: 09:22 Solu-MEDROL 125 mg IVP once ordered. sd1 09:22 -Blood Culture (Adults Only), peripheral from different site, or from device/port/PICC sd1 etc. if present ordered. 09:22 Call Respiratory ordered. sd1 09:22 Home Health Aide Caregiver/Pulse Ox/q 15 min VS ordered. sd1 09:22 IV Saline Lock ordered. sd1 09:22 Oxygen at 4L/Min NC or Home dosage ordered. sd1 09:22 Rhythm Strip to chart ordered. sd1 09:22 Albuterol-Ipratropium 1 neb Nebulizer every 20 minutes x3 ordered. sd1 09:23 -Arterial Blood Gas Ordered. EDMS 09:23 B-Type Natiuretic Peptide Ordered. EDMS 09:23 Basic Metabolic Profile Ordered. EDMS 09:23 CBC with Diff Ordered. EDMS 09:23 Cardiac Injury Profile Ordered. EDMS 09:23 Troponin Ordered. EDMS 09:23 Lactic Acid (Mchugh tube on ice) Ordered. EDMS 09:23 -Blood Culture Ordered. EDMS 09:23 Acetaminophen Tablet 650 mg PO once; via Gtube ordered. sd1 09:23 Chest, 1 View Ordered. EDMS 09:23 ECG WITH READING ER PHYS+CARDIAG ordered. EDMS 09:25 Call Respiratory complete. mt4 09:27 BLOOD CULTURES Ordered. EDMS 09:31 -Influenza A&B Rapid Antigen - Nose Ordered. EDMS 09:32 Misc Gill Net Stringer Order ordered. sd1 09:32 -Blood Culture (Adults Only), peripheral from different site, or from device/port/PICC js13 etc. if present complete. 09:38 BED REQUEST+ADM ordered. EDMS 09:42 Imipenem-Cilastatin 500 mg IVPB at 100 mL/hr once over 1 hrs; reconstitute first with sd1 10mL of NS, then add to 100mL of NS ordered. 09:42 Misc Gill Net Stringer Order complete. mt4 09:43 RESPIRATORY PANEL Ordered. EDMS 09:58 -Arterial Blood Gas Reviewed. sd1 10:07 Financial registration complete. lg 10:08 [facility] [place] Agreement was scanned into [employer] and attached to record. lg 10:11 DIFFERENTIAL NO CHARGE Ordered. EDMS 10:11 PLATELET ESTIMATE Ordered. EDMS 10:38 Basic Metabolic Profile Reviewed. sd1 10:38 CBC with Diff Reviewed. sd1 10:38 B-Type Natiuretic Peptide Reviewed. sd1 10:38 Cardiac Injury Profile Reviewed. sd1 10:38 Troponin Reviewed. sd1 10:38 Lactic Acid (Mchugh tube on ice) Reviewed. sd1 10:38 -Influenza A&B Rapid Antigen - Nose Reviewed. sd1 10:38 Chest, 1 View Reviewed. sd1 10:55 SPUTUM CULTURE AND GRAM STAIN Ordered. EDMS 11:09 CBC with Diff Reviewed. sd1 11:09 PLATELET ESTIMATE Reviewed. sd1 11:14 Admission / Observation Status ordered. EDMS 15:43 T-Sheet-- Draft Copy was scanned into [employer] and attached to record. gb 15:43 ECG/EKG was scanned into [employer] and attached to record. gb 16:10 Meropenem 2 grams IV at 200 mL/hr once ordered. rs3 Administered Medications: 09:28 Drug: Solu-MEDROL 125 mg [Solu-Medrol 500 mg intravenous solution (125 mg)] Route: IVP; [facility] Site: left wrist; 09:30 Drug: Albuterol-Ipratropium 1 neb [ipratropium-albuterol 0.5 mg-3 mg(2.5 mg base)/3 mL cs15 nebulization soln (1 neb)] Route: Nebulizer; 09:44 Drug: Acetaminophen 650 mg [acetaminophen 325 mg tablet (2 tabs)] {Note: gave liquid js13 per dr queen.} Route: PO; 10:52 Follow up: Temp 100.4 Temporal; Response: Temperature is decreased js13 09:45 Drug: Albuterol-Ipratropium 1 neb [ipratropium-albuterol 0.5 mg-3 mg(2.5 mg base)/3 mL cs15 nebulization soln (1 neb)] Route: Nebulizer; 09:55 Drug: Albuterol-Ipratropium 1 neb [ipratropium-albuterol 0.5 mg-3 mg(2.5 mg base)/3 mL cs15 nebulization soln (1 neb)] Route: Nebulizer; 09:55 Drug: Imipenem-Cilastatin 500 mg [imipenem-cilastatin 500 mg intravenous solution] js13 Route: IVPB; Rate: 100 mL/hr; Infused Over: 1 hrs; Site: left forearm; 10:52 Follow up: IV Status: Completed infusion; IV Intake: 100ml js13 16:10 Drug: Meropenem 2 grams Route: IV; Rate: 200 mL/hr; Site: left antecubital; rs3 Signatures: Dispatcher [employer] EDFL Miranda Johnson MD MD sd1 Sylvia Callejas, Reg Reg gb Rowena Olivas, Reg Reg lg Rich, Chasity mt4 Radha VeraRN RN rs3 Ricardo Berry RN RN ml6 Nadira UrbanoRN RN js13 Manuel Blackmon RN, Caleb RT cs15 The chart was reviewed and I authenticate all verbal orders and agree with the evaluation and treatment provided.Attachments: 10:08 [facility] Payment Agreement lg 15:43 T-Sheet-- Draft Copy gb 15:43 ECG/EKG gb Chart Complete MTDD
--- NOTE | 2016-09-03 17:14 | EDDOCDS ---
Physician Documentation [facility] Name: Jadon Grove Age: 66 yrs Sex: Male : 1950 Arrival Date: 09/01/2016 Time: 09:13 Bed 1 Private MD: JV Yoo Disposition: 09/01/16 10:56 Hospitalization ordered by Leta Benitez for Inpatient Admission. Preliminary diagnosis is Pneumonia due to other specified infectious organisms. - Bed requested for M ICU. - Status is Inpatient Admission. rs3 - Condition is Stable. - Problem is new. - Symptoms are unchanged. Historical: - Allergies: Flagyl (Rash); - Home Meds: 1. Advair Diskus 115/21 mcg/dose Inhl dsdv 1 puff 2 times per day (Last dose: 09/01/2016 07:00) 2. albuterol sulfate 2.5 mg/0.5 mL Inhl nebu 3 times per day (Last dose: 09/01/2016 07:00) 3. albuterol sulfate 90 mcg/actuation Inhl aepb 2 puffs every 4 hours As needed (Last dose: 09/01/2016 07:00) 4. aspirin 81 mg Oral tab 1 tab once daily (Last dose: 09/01/2016 07:00) 5. Oxygen 3LNC (Last dose: 09/01/2016 09:25) 6. prednisone 10 mg Oral tab once daily (Last dose: 09/01/2016 07:00) 7. Vitamin Oral tab 1 tab once daily (Last dose: 09/01/2016 07:00) 8. ranitidine HCl 75 mg Oral tab 1 tab once daily (Last dose: 09/01/2016 07:00) 9. Bactrim DS 800-160 mg Oral tab 1 tab 2 times per day (Last dose: 09/01/2016 07:00) - PMHx: Cancer Right Tonsil; COPD; Pneumonia; - PSHx: oral surgery; right foot surgery; Cataract Surgery- Bilateral; - Social history: Smoking status: Patient states former smoker of tobacco. No barriers to communication noted, Speaks appropriately for age. - Family history: Not pertinent. - : The pt / caregiver states he / she is not on anticoagulants. Home medication list is obtained from the patient. - Exposure Risk Screening:: None identified. Vital Signs: 09/01 09:15 Pulse 126; Pulse Ox 69% on 4 lpm NC; jrd 09:26 BP 174 / 81 (auto/); ml6 09:26 Pulse 116 MON; Resp 26; Temp 103.6(TE); Pulse Ox 95% on 100% Non-rebreather mask; Pain ml6 0/10; 09:41 BP 156 / 73 (auto/); js13 09:41 Pulse 114 MON; Resp 18; Pulse Ox 91% on 3 lpm NC; js13 09:45 Weight 72.57 kg / 159.99 lbs; Height 6 ft. 1 in. (185.42 cm); js13 09:45 BP 149 / 71 (auto/); js13 09:45 Pulse 114 MON; Resp 18; Pulse Ox 90% on Non-rebreather mask; js13 09:48 BP 136 / 66 (auto/); js13 09:48 Pulse 114 MON; Resp 18; Pulse Ox 91% on Non-rebreather mask; js13 10:03 BP 111 / 56 (auto/); js13 10:03 Pulse 117 MON; Resp 18; Pulse Ox 92% on Non-rebreather mask; js13 10:19 BP 111 / 65 (auto/); js13 10:19 Pulse 114 MON; Resp 18; Pulse Ox 91% on Non-rebreather mask; js13 10:33 BP 105 / 61 (auto/); js13 10:33 Pulse 112 MON; Resp 20; Pulse Ox 90% on Non-rebreather mask; js13 10:48 BP 106 / 64 (auto/); rs3 10:52 Temp 100.4(TE); js13 10:53 Pulse 107 MON; Pulse Ox 90% ; rs3 11:03 BP 110 / 55 (auto/); rs3 11:04 Pulse 105 MON; Pulse Ox 91% ; rs3 11:19 BP 115 / 64 (auto/); rs3 11:20 Pulse 101 MON; Pulse Ox 93% ; rs3 11:33 BP 102 / 55 (auto/); rs3 11:34 Pulse 97 MON; Pulse Ox 94% ; rs3 11:40 Pulse 95 MON; Pulse Ox 94% ; rs3 11:48 BP 117 / 77 (auto/); rs3 11:48 Pulse 98 MON; Pulse Ox 91% ; rs3 12:03 BP 115 / 67 (auto/); rs3 12:04 Pulse 95 MON; Pulse Ox 91% ; rs3 12:19 BP 117 / 68 (auto/); rs3 12:20 Pulse 92 MON; Pulse Ox 90% ; rs3 12:33 BP 115 / 66 (auto/); rs3 12:34 Pulse 90 MON; Pulse Ox 90% ; rs3 12:48 BP 109 / 56 (auto/); rs3 12:49 Pulse 89 MON; Pulse Ox 91% ; rs3 13:03 BP 109 / 55 (auto/); rs3 13:04 Pulse 85 MON; Pulse Ox 92% ; rs3 13:19 BP 111 / 58 (auto/); rs3 13:20 Pulse 82 MON; Pulse Ox 93% ; rs3 13:33 BP 109 / 61 (auto/); rs3 13:34 Pulse 82 MON; Pulse Ox 93% ; rs3 13:48 BP 107 / 62 (auto/); rs3 13:49 Pulse 81 MON; Pulse Ox 93% ; rs3 14:03 BP 109 / 62 (auto/); rs3 14:04 Pulse 80 MON; Pulse Ox 94% ; rs3 14:19 BP 113 / 62 (auto/); rs3 14:20 Pulse 77 MON; Pulse Ox 95% ; rs3 14:33 BP 115 / 63 (auto/); rs3 14:34 Pulse 77 MON; Pulse Ox 95% ; rs3 14:48 BP 119 / 67 (auto/); rs3 14:49 Pulse 77 MON; Pulse Ox 95% ; rs3 15:04 BP 121 / 69 (auto/); rs3 15:05 BP 121 / 69; Pulse 77 MON; Resp 18; Temp 97(O); Pulse Ox 96% on Venturi mask; Pain 0/10;rs3 15:19 BP 119 / 61 (auto/); rs3 15:23 Pulse 77 MON; Pulse Ox 90% ; rs3 15:33 BP 109 / 59 (auto/); rs3 15:34 Pulse 76 MON; Pulse Ox 90% ; rs3 15:48 BP 116 / 73 (auto/); rs3 15:49 Pulse 78 MON; Pulse Ox 92% ; rs3 16:04 BP 115 / 71 (auto/); rs3 16:05 Pulse 78 MON; Pulse Ox 91% ; rs3 09:45 Body Mass Index 21.11 (72.57 kg, 185.42 cm) js13 MDM: 09:22 Solu-MEDROL 125 mg IVP once ordered. sd1 09:22 -Blood Culture (Adults Only), peripheral from different site, or from device/port/PICC sd1 etc. if present ordered. 09:22 Call Respiratory ordered. sd1 09:22 Cleaner And Dyer/Pulse Ox/q 15 min VS ordered. sd1 09:22 IV Saline Lock ordered. sd1 09:22 Oxygen at 4L/Min NC or Home dosage ordered. sd1 09:22 Rhythm Strip to chart ordered. sd1 09:22 Albuterol-Ipratropium 1 neb Nebulizer every 20 minutes x3 ordered. sd1 09:23 -Arterial Blood Gas Ordered. EDMS 09:23 B-Type Natiuretic Peptide Ordered. EDMS 09:23 Basic Metabolic Profile Ordered. EDMS 09:23 CBC with Diff Ordered. EDMS 09:23 Cardiac Injury Profile Ordered. EDMS 09:23 Troponin Ordered. EDMS 09:23 Lactic Acid (Mchugh tube on ice) Ordered. EDMS 09:23 -Blood Culture Ordered. EDMS 09:23 Acetaminophen Tablet 650 mg PO once; via Gtube ordered. sd1 09:23 Chest, 1 View Ordered. EDMS 09:23 ECG WITH READING ER PHYS+CARDIAG ordered. EDMS 09:25 Call Respiratory complete. mt4 09:27 BLOOD CULTURES Ordered. EDMS 09:31 -Influenza A&B Rapid Antigen - Nose Ordered. EDMS 09:32 Misc System Auditor Order ordered. sd1 09:32 -Blood Culture (Adults Only), peripheral from different site, or from device/port/PICC js13 etc. if present complete. 09:38 BED REQUEST+ADM ordered. EDMS 09:42 Imipenem-Cilastatin 500 mg IVPB at 100 mL/hr once over 1 hrs; reconstitute first with sd1 10mL of NS, then add to 100mL of NS ordered. 09:42 Misc System Auditor Order complete. mt4 09:43 RESPIRATORY PANEL Ordered. EDMS 09:58 -Arterial Blood Gas Reviewed. sd1 10:07 Financial registration complete. lg 10:08 [facility] [place] was [place] into [employer] and attached to record. lg 10:11 DIFFERENTIAL NO CHARGE Ordered. EDMS 10:11 PLATELET ESTIMATE Ordered. EDMS 10:38 Basic Metabolic Profile Reviewed. sd1 10:38 CBC with Diff Reviewed. sd1 10:38 B-Type Natiuretic Peptide Reviewed. sd1 10:38 Cardiac Injury Profile Reviewed. sd1 10:38 Troponin Reviewed. sd1 10:38 Lactic Acid (Mchugh tube on ice) Reviewed. sd1 10:38 -Influenza A&B Rapid Antigen - Nose Reviewed. sd1 10:38 Chest, 1 View Reviewed. sd1 10:55 SPUTUM CULTURE AND GRAM STAIN Ordered. EDMS 11:09 CBC with Diff Reviewed. sd1 11:09 PLATELET ESTIMATE Reviewed. sd1 11:14 Admission / Observation Status ordered. EDMS 15:43 T-Sheet-- Draft Copy was scanned into [employer] and attached to record. gb 15:43 ECG/EKG was scanned into [employer] and attached to record. gb 16:10 Meropenem 2 grams IV at 200 mL/hr once ordered. rs3 Administered Medications: 09:28 Drug: Solu-MEDROL 125 mg [Solu-Medrol 500 mg intravenous solution (125 mg)] Route: IVP; [facility] Site: left wrist; 09:30 Drug: Albuterol-Ipratropium 1 neb [ipratropium-albuterol 0.5 mg-3 mg(2.5 mg base)/3 mL cs15 nebulization soln (1 neb)] Route: Nebulizer; 09:44 Drug: Acetaminophen 650 mg [acetaminophen 325 mg tablet (2 tabs)] {Note: gave liquid js13 per dr queen.} Route: PO; 10:52 Follow up: Temp 100.4 Temporal; Response: Temperature is decreased js13 09:45 Drug: Albuterol-Ipratropium 1 neb [ipratropium-albuterol 0.5 mg-3 mg(2.5 mg base)/3 mL cs15 nebulization soln (1 neb)] Route: Nebulizer; 09:55 Drug: Albuterol-Ipratropium 1 neb [ipratropium-albuterol 0.5 mg-3 mg(2.5 mg base)/3 mL cs15 nebulization soln (1 neb)] Route: Nebulizer; 09:55 Drug: Imipenem-Cilastatin 500 mg [imipenem-cilastatin 500 mg intravenous solution] js13 Route: IVPB; Rate: 100 mL/hr; Infused Over: 1 hrs; Site: left forearm; 10:52 Follow up: IV Status: Completed infusion; IV Intake: 100ml js13 16:10 Drug: Meropenem 2 grams Route: IV; Rate: 200 mL/hr; Site: left antecubital; rs3 Signatures: Dispatcher [employer] EDME Miranda Johnson MD MD sd1 Sylvia Callejas, Reg Reg gb Rowena Olivas, Reg Reg lg Rich, Chasity mt4 Radha VeraRN RN rs3 Ricardo Berry RN RN ml6 Nadira UrbanoRN RN js13 Manuel Blackmon RN, Caleb RT cs15 The chart was reviewed and I authenticate all verbal orders and agree with the evaluation and treatment provided.Attachments: 10:08 [facility] Payment Agreement lg 15:43 T-Sheet-- Draft Copy gb 15:43 ECG/EKG gb Chart Complete MTDD
[2016-09-03] MEDS ORDERED: VANCOMYCIN HCL 500 MG in D5W MINI-BAG PLUS 100 ML IV ONE (18:00)
--- NOTE | 2016-09-03 18:30 | PHACANCOPD ---
PHARMACY VANCOMYCIN DOSING Pt Demographics Demographics Patient Age:66 , Weight:64.500 , Gender: male Adjusted Body Weight Events Past 24 Hours Events Past 24 Hours: NO: Change in CrCl, Dialysis, Diuretic Therapy, Elevation in WBC, Fever, Other, Pending Diagnostics, Pending Procedures Vancomycin Vancomycin indication: hcap Vancomycin Target Ranges: 15-20 mcg/ml Vancomycin Load Y/N: Yes Load Dose Date Time Vancomycin Load Dose: 1.5g Date: 09/01/16 Time: 1700 Vancomycin Dose Date: 09/03/16. Current Vancomycin Dose: [1g IV q8h] Intermittent Dosing?: No Labs Labs Laboratory Tests Test 09/03/16 16:07 Vancomycin Level Trough 9.8UG/ML (10.0-20.0) Laboratory Tests 09/03/16 05:31 Calcium Level 8.7, Red Blood Count 3.73, Mean Corpuscular Volume 103.7, Mean Corpuscular Hemoglobin 34.4, Mean Corpuscular Hemoglobin Concent 33.2, Red Cell Distribution Width 13.9 Micro Microbiology 09/01/16 Blood Culture - Preliminary, Resulted No Growth after 48 hours. All Specime... 09/01/16 Blood Culture - Preliminary, Resulted No Growth after 48 hours. All Specime... 09/01/16 Sputum Culture - Preliminary, Resulted Staphylococcus Aureus Non-Lactose Braille Typist 09/01/16 Respiratory Virus Panel (PCR) (DL) - Final, Complete Parainfluenza 3 (Piv3) Creatinine Clearance Date:09/03/16. Creatinine Clearance: [>60 ml/min]. Assessment and Plan Maintaining Current Dose?: No Reason for dose change: Trough too low Pharmacist Note Pharmacist Note Date: 09/03/16. Pharm.D. note: 66 year old male, 73" in height, 64.5kg in weight treated for hcap with vancomycin 1gm iv q12h goal trough 15-20mcg/ml & merpenem 1gm iv q8h. A vanco trough this afternoon = 9.8 mcg/ml. We will increase the dose to 1gm vanco IV q8h starting at 01:00 09/04/16 following a 1.5gm vanco re-load at 17:00 today. [facility] Sep 03, 2016 18:30
[2016-09-03] MEDS: FAMOTIDINE 20 MG TAB PEG SCH (21:19)
[2016-09-03 22:00] VITALS: BP 146/78
[2016-09-04] MEDS: VANCOMYCIN HCL 1,000 MG, VIAL MATE ADAPTER 1 EACH in D5W 250 ML IV SCH ×3 (00:31→16:38)
[2016-09-04] MEDS: methylPREDNISolone INJ 125 MG/2 ML VIAL (J2930) IV SCH ×2 (05:49→13:04)
[2016-09-04] MEDS: HEPARIN SOD (PORCINE) 5000 UNITS/ML VIAL SC SCH ×3 (05:49→21:20)
[2016-09-04 06:00] VITALS: BP 138/83
[2016-09-04 06:23] LABS: MEAN CORPUSCULAR HEMOGLOBIN 34.2 pg (27.0-33.0); MEAN CORPUSCULAR VOLUME 103.7 fl (80.0-96.0); RED CELL DISTRIBUTION WIDTH 13.9 % (11.5-14.5); WHITE BLOOD COUNT 22.5 K/mm3 (4.0-10.0)
[2016-09-04 06:35] LABS: ANION GAP 6 MEQ/L (8-16); BLOOD UREA NITROGEN 17 MG/DL (7-18); CARBON DIOXIDE LEVEL 38 MEQ/L (21-32); CHLORIDE LEVEL 99 MEQ/L (98-107); CREATININE FOR GFR 0.51 MG/DL (0.70-1.30); GLOMERULAR FILTRATION RATE > 60.0 (>49); GLUCOSE, FASTING 123 MG/DL (80-110); POTASSIUM SERUM 4.1 MEQ/L (3.5-5.1); SODIUM LEVEL 143 MEQ/L (136-145)
[2016-09-04] MEDS: MEROPENEM INJ 1 GM in D5W MINI-BAG PLUS 100 ML IV SCH ×3 (07:56→23:42)
[2016-09-04] MEDS: PRENATAL VITAMIN TAB PEG SCH (07:56)
[2016-09-04] MEDS: THIAMINE 100 MG TAB PEG SCH (07:56)
[2016-09-04] MEDS: ASPIRIN 81 MG CHEW TABLET PEG SCH (07:57)
[2016-09-04 14:00] VITALS: BP 107/57
--- NOTE | 2016-09-04 16:14 | IPNPDOC ---
Date Seen The patient was seen on 09/04/16. Progress Note SUBJECTIVE: The patient tells me that he is feeling better today he is breathing continues to improve OBJECTIVE PHYSICAL EXAMINATION: VITAL SIGNS: Currently requiring 6 L high flow nasal cannula to maintain sats greater than 88 Please see below. 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 RESPIRATORY: Improved air movement dementia breath sounds throughout some mild end expiratory wheeze no rales. ABDOMINAL: PEG tube in place clean dry and intact bowel sounds are present abdomen soft EXTREMITIES: No clubbing Cyanosis or edema LABORATORY DATA: Please see below. MICROBIOLOGY:Please see below. IMAGING: Chest x-ray reveals diffuse chronic interstitial changes acute on chronic bibasilar infiltrates right greater than left DVT prophylaxis ordered?: Heparin every 8 ASSESSMENT AND PLAN: This is a 66-year-old man with significant dyspnea likely multifactorial in nature. Problem #1 dyspnea: Parainfluenza positive, the patient at his baseline is on 10 mg of prednisone daily as well as 3 L of oxygen later to bronchiectasis pulmonary fibrosis and COPD. The patient does have acute on chronic infiltrates on the right lower lobe there is some concern for potential healthcare associated pneumonia and as such the patient is on currently on vancomycin and meropenem day 4, sputum + for MRSA. He should complete 7d of appropriate Abx. Of note the patient usually does cycling courses of antibiotics one week per month of Bactrim Augmentin and ciprofloxacin as per his human resources vice president Dr. Nance. In regards to the patient's COPD we will wean his IV Solu-Medrol which was started emergency room continue with nebulizer treatments, he appears to be improving at this time. 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 Problem #3 gastric reflux disease: Patient is on Pepcid via his PEG tube DISPOSITION: Currently improving at this time we will continue to monitor closely. VS, I&O, 24H, Fishbone Vital Signs/I&O Vital Signs Date Time Temp Pulse Resp B/P Pulse Ox O2 Delivery O2 Flow Rate FiO2 09/04/16 14:00 97.1 67 18 107/57 98 Room Air 09/04/16 09:00 5.0 09/02/16 04:00 40 I&O- Last 24 Hours up to 6 AM 09/04/16 06:00 Intake Total 720 ml Output Total 2400 ml Balance -1680 ml Laboratory Data 24H LABS Laboratory Tests 2 09/04/16 06:02: Anion Gap 6L, Blood Urea Nitrogen 17, Creatinine 0.51L, Sodium Level 143, Potassium Level 4.1, Chloride Level 99, Carbon Dioxide Level 38H, Calcium Level 9.0, Glomerular Filtration Rate > 60.0 CBC/BMP Laboratory Tests 09/04/16 06:02 Calcium Level 9.0, Red Blood Count 3.94 L, Mean Corpuscular Volume 103.7 H, Mean Corpuscular Hemoglobin 34.2 H, Mean Corpuscular Hemoglobin Concent 33.0, Red Cell Distribution Width 13.9 Microbiology Microbiology 09/01/16 Blood Culture - Preliminary, Resulted No Growth after 72 hours. All specime... 09/01/16 Blood Culture - Preliminary, Resulted No Growth after 72 hours. All specime... 09/02/16 MRSA Screen - Final, Complete 09/01/16 Gram Stain - Final, Complete 09/01/16 Sputum Culture - Final, Complete Staph.aureus Methicillin Resis Achromobacter Xylosoxidans 09/01/16 Respiratory Virus Panel (PCR) (DL) - Final, Complete Parainfluenza 3 (Piv3) 09/01/16 Influenza Virus Type A Antigen - Final, Complete 09/01/16 Influenza Virus Type B Antigen - Final, Complete STAR HAYNES MD Sep 04, 2016 16:14
[2016-09-04] MEDS: FAMOTIDINE 20 MG TAB PEG SCH (21:20)
[2016-09-04 22:00] VITALS: BP 152/91
[2016-09-05] MEDS: VANCOMYCIN HCL 1,000 MG, VIAL MATE ADAPTER 1 EACH in D5W 250 ML IV SCH ×3 (00:30→18:39)
[2016-09-05] MEDS: HEPARIN SOD (PORCINE) 5000 UNITS/ML VIAL SC SCH ×3 (05:08→21:28)
[2016-09-05 06:00] VITALS: BP 151/94
[2016-09-05 07:38] LABS: MEAN CORPUSCULAR HEMOGLOBIN 34.1 pg (27.0-33.0); MEAN CORPUSCULAR HGB CONC 33.2 g/dl (32.0-36.5); MEAN CORPUSCULAR VOLUME 102.7 fl (80.0-96.0); RED CELL DISTRIBUTION WIDTH 13.8 % (11.5-14.5); WHITE BLOOD COUNT 20.6 K/mm3 (4.0-10.0)
[2016-09-05 08:00] LABS: ANION GAP 5 MEQ/L (8-16); BLOOD UREA NITROGEN 20 MG/DL (7-18); CALCIUM LEVEL 8.9 MG/DL (8.8-10.2); CARBON DIOXIDE LEVEL 39 MEQ/L (21-32); CHLORIDE LEVEL 99 MEQ/L (98-107); CREATININE FOR GFR 0.54 MG/DL (0.70-1.30); GLOMERULAR FILTRATION RATE > 60.0 (>49); GLUCOSE, FASTING 97 MG/DL (80-110); POTASSIUM SERUM 4.3 MEQ/L (3.5-5.1); SODIUM LEVEL 143 MEQ/L (136-145)
[2016-09-05] MEDS: THIAMINE 100 MG TAB PEG SCH (08:19)
[2016-09-05] MEDS: PRENATAL VITAMIN TAB PEG SCH (08:20)
[2016-09-05] MEDS: MEROPENEM INJ 1 GM in D5W MINI-BAG PLUS 100 ML IV SCH (08:20)
[2016-09-05] MEDS: ASPIRIN 81 MG CHEW TABLET PEG SCH (08:20)
[2016-09-05] MEDS: predniSONE 20 MG TAB PO SCH (08:20)
--- NOTE | 2016-09-05 08:44 | PHACANCOPD ---
PHARMACY VANCOMYCIN DOSING Pt Demographics Demographics Patient Age:66 , Weight:73.800 , Gender: male Adjusted Body Weight Events Past 24 Hours Events Past 24 Hours: NO: Change in CrCl, Dialysis, Diuretic Therapy, Elevation in WBC, Fever, Other, Pending Diagnostics, Pending Procedures Vancomycin Vancomycin indication: hcap Vancomycin Target Ranges: 15-20 mcg/ml Vancomycin Load Y/N: Yes Load Dose Date Time Vancomycin Load Dose: 1.5g Date: 09/01/16 Time: 1700 Vancomycin Dose Date: 09/03/16. Current Vancomycin Dose: [1g IV q8h] Intermittent Dosing?: No Labs Micro Microbiology 09/01/16 Blood Culture - Preliminary, Resulted No Growth after 72 hours. All specime... 09/01/16 Blood Culture - Preliminary, Resulted No Growth after 72 hours. All specime... 09/02/16 MRSA Screen - Final, Complete 09/01/16 Gram Stain - Final, Complete 09/01/16 Sputum Culture - Final, Complete Staph.aureus Methicillin Resis Achromobacter Xylosoxidans 09/01/16 Respiratory Virus Panel (PCR) (DL) - Final, Complete Parainfluenza 3 (Piv3) 09/01/16 Influenza Virus Type A Antigen - Final, Complete 09/01/16 Influenza Virus Type B Antigen - Final, Complete Creatinine Clearance Date:09/03/16. Creatinine Clearance: [>60 ml/min]. Assessment and Plan Maintaining Current Dose?: Yes Reason for dose change: Trough too high Pharmacist Note Pharmacist Note Date: 09/05/16. Pharmacist note: Trough came back today at 20.9mcg/ml pt estimated half-life @ ~7 hours. To allow level to lower, dose was held for 2 hours and 1g Q8h will be restarted at 11:00. Date: 09/03/16. Pharm.D. note: 66 year old male, 73" in height, 64.5kg in weight treated for hcap with vancomycin 1gm iv q12h goal trough 15-20mcg/ml & merpenem 1gm iv q8h. A vanco trough this afternoon = 9.8 mcg/ml. We will increase the dose to 1gm vanco IV q8h starting at 01:00 09/04/16 following a 1.5gm vanco re-load at 17:00 today. RAUL MICHAUD PHARMACY Sep 05, 2016 08:44
[2016-09-05] MEDS ORDERED: PREVNAR 13 VACCINE SYRINGE (CPT CODE:90670) IM ONE (09:00)
--- NOTE | 2016-09-05 13:14 | IPNPDOC ---
Date Seen The patient was seen on 09/05/16. Progress Note SUBJECTIVE: The patient tells me that he is feeling well today and his breathing continues to improve OBJECTIVE PHYSICAL EXAMINATION: VITAL SIGNS: Currently requiring 4 L high flow nasal cannula to maintain sats greater than 88 Please see below. 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 RESPIRATORY: Improved air movement dementia breath sounds throughout some mild end expiratory wheeze no rales. ABDOMINAL: PEG tube in place clean dry and intact bowel sounds are present abdomen soft EXTREMITIES: No clubbing Cyanosis or edema LABORATORY DATA: Please see below. MICROBIOLOGY:Please see below. IMAGING: Chest x-ray reveals diffuse chronic interstitial changes acute on chronic bibasilar infiltrates right greater than left DVT prophylaxis ordered?: Heparin every 8 ASSESSMENT AND PLAN: This is a 66-year-old man with significant dyspnea likely multifactorial in nature. Problem #1 dyspnea: Parainfluenza positive, the patient at his baseline is on 10 mg of prednisone daily as well as 3 L of oxygen later to bronchiectasis pulmonary fibrosis and COPD. The patient does have acute on chronic infiltrates on the right lower lobe there is concern for potential healthcare associated pneumonia given MRSA + sputum and as such the patient is on currently on vancomycin day 5. He should complete 7d of appropriate Abx. Of note the patient usually does cycling courses of antibiotics one week per month of Bactrim Augmentin and ciprofloxacin as per his avionics electronics technician Dr. Nance. In regards to the patient's COPD we are weaning his steroids. continue with nebulizer treatments, he appears to be improving at this time. 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 Problem #3 gastric reflux disease: Patient is on Pepcid via his PEG tube DISPOSITION: Currently improving at this time we will continue to monitor closely. VS, I&O, 24H, Fishbone Vital Signs/I&O Vital Signs Date Time Temp Pulse Resp B/P Pulse Ox O2 Delivery O2 Flow Rate FiO2 09/05/16 09:00 Nasal Cannula 4.0 09/05/16 06:00 96.9 78 18 151/94 93 09/02/16 04:00 40 I&O- Last 24 Hours up to 6 AM 09/05/16 06:00 Intake Total 740 ml Output Total 1825 ml Balance -1085 ml Laboratory Data 24H LABS Laboratory Tests 2 09/05/16 07:26: Anion Gap 5L, Blood Urea Nitrogen 20H, Creatinine 0.54L, Sodium Level 143, Potassium Level 4.3, Chloride Level 99, Carbon Dioxide Level 39H, Calcium Level 8.9, Glomerular Filtration Rate > 60.0, Vancomycin Level Trough 20.9H CBC/BMP Laboratory Tests 09/05/16 07:26 Calcium Level 8.9, Red Blood Count 4.04 L, Mean Corpuscular Volume 102.7 H, Mean Corpuscular Hemoglobin 34.1 H, Mean Corpuscular Hemoglobin Concent 33.2, Red Cell Distribution Width 13.8 Microbiology Microbiology 09/01/16 Blood Culture - Preliminary, Resulted No Growth after 72 hours. All specime... 09/01/16 Blood Culture - Preliminary, Resulted No Growth after 72 hours. All specime... 09/02/16 MRSA Screen - Final, Complete 09/01/16 Gram Stain - Final, Complete 09/01/16 Sputum Culture - Final, Complete Staph.aureus Methicillin Resis Achromobacter Xylosoxidans 09/01/16 Respiratory Virus Panel (PCR) (DL) - Final, Complete Parainfluenza 3 (Piv3) 09/01/16 Influenza Virus Type A Antigen - Final, Complete 09/01/16 Influenza Virus Type B Antigen - Final, Complete STAR HAYNES MD Sep 05, 2016 13:14
[2016-09-05 14:00] VITALS: BP 139/85
[2016-09-05] MEDS: FAMOTIDINE 20 MG TAB PEG SCH (20:14)
[2016-09-05 22:00] VITALS: BP 150/85
[2016-09-06] MEDS: VANCOMYCIN HCL 1,000 MG, VIAL MATE ADAPTER 1 EACH in D5W 250 ML IV SCH ×3 (03:31→18:38)
[2016-09-06] MEDS: HEPARIN SOD (PORCINE) 5000 UNITS/ML VIAL SC SCH ×3 (05:29→21:41)
[2016-09-06 05:37] LABS: MEAN CORPUSCULAR HEMOGLOBIN 33.5 pg (27.0-33.0); MEAN CORPUSCULAR HGB CONC 32.8 g/dl (32.0-36.5); MEAN CORPUSCULAR VOLUME 102.1 fl (80.0-96.0); RED CELL DISTRIBUTION WIDTH 13.4 % (11.5-14.5); WHITE BLOOD COUNT 14.2 K/mm3 (4.0-10.0)
[2016-09-06 05:49] LABS: ANION GAP 3 MEQ/L (8-16); BLOOD UREA NITROGEN 19 MG/DL (7-18); CALCIUM LEVEL 8.5 MG/DL (8.8-10.2); CARBON DIOXIDE LEVEL 41 MEQ/L (21-32); CHLORIDE LEVEL 97 MEQ/L (98-107); CREATININE FOR GFR 0.46 MG/DL (0.70-1.30); GLOMERULAR FILTRATION RATE > 60.0 (>49); GLUCOSE, FASTING 98 MG/DL (80-110); POTASSIUM SERUM 3.8 MEQ/L (3.5-5.1); SODIUM LEVEL 141 MEQ/L (136-145)
[2016-09-06 06:00] VITALS: BP 119/78
[2016-09-06] MEDS: THIAMINE 100 MG TAB PEG SCH (08:53)
[2016-09-06] MEDS: predniSONE 20 MG TAB PO SCH (08:53)
[2016-09-06] MEDS: PRENATAL VITAMIN TAB PEG SCH (08:54)
[2016-09-06] MEDS: ASPIRIN 81 MG CHEW TABLET PEG SCH (08:54)
[2016-09-06 09:00] VITALS: BP 152/68
--- NOTE | 2016-09-06 12:38 | IPNPDOC ---
Date Seen The patient was seen on 09/06/16. Progress Note SUBJECTIVE: The patient tells me that he feels good has no complaints of chest pain fevers chills nausea vomiting or diarrhea OBJECTIVE PHYSICAL EXAMINATION: VITAL SIGNS: Currently requiring 4 L high flow nasal cannula to maintain sats greater than 88 Please see below. 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 RESPIRATORY: Improved air movement decreased breath sounds throughout no rales. ABDOMINAL: PEG tube in place clean dry and intact bowel sounds are present abdomen soft EXTREMITIES: No clubbing Cyanosis or edema LABORATORY DATA: Please see below. MICROBIOLOGY:Please see below. IMAGING: No new imaging DVT prophylaxis ordered?: Heparin every 8 ASSESSMENT AND PLAN: This is a 66-year-old man with significant dyspnea likely multifactorial in nature. Problem #1 dyspnea: Parainfluenza positive, the patient at his baseline is on 10 mg of prednisone daily as well as 3 L of oxygen secondary to bronchiectasis pulmonary fibrosis and COPD. The patient does have acute on chronic infiltrates on the right lower lobe there is concern for potential healthcare associated pneumonia given MRSA + sputum and as such the patient is on currently on vancomycin day 6. He should complete 7d of appropriate Abx. Of note the patient usually does cycling courses of antibiotics one week per month of Bactrim Augmentin and ciprofloxacin as per his documentation nurse Dr. Nance. In regards to the patient's COPD we are weaning his steroids. continue with nebulizer treatments, he appears to be improving at this time. 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 Problem #3 gastro esophageal reflux disease: Patient is on Pepcid via his PEG tube DISPOSITION: Currently improving at this time we will continue to monitor closely. I suspect he can be discharged home on Thursday VS, I&O, 24H, Fishbone Vital Signs/I&O Vital Signs Date Time Temp Pulse Resp B/P Pulse Ox O2 Delivery O2 Flow Rate FiO2 09/06/16 10:30 91 High Flow Cannula 4.0 09/06/16 09:00 96.4 101 20 152/68 09/02/16 04:00 40 I&O- Last 24 Hours up to 6 AM 09/06/16 06:00 Intake Total 270 ml Output Total 1950 ml Balance -1680 ml Laboratory Data 24H LABS Laboratory Tests 2 09/06/16 05:03: Anion Gap 3L, Blood Urea Nitrogen 19H, Creatinine 0.46L, Sodium Level 141, Potassium Level 3.8, Chloride Level 97L, Carbon Dioxide Level 41H, Calcium Level 8.5L, Glomerular Filtration Rate > 60.0 CBC/BMP Laboratory Tests 09/06/16 05:03 Calcium Level 8.5 L, Red Blood Count 4.17 L, Mean Corpuscular Volume 102.1 H, Mean Corpuscular Hemoglobin 33.5 H, Mean Corpuscular Hemoglobin Concent 32.8, Red Cell Distribution Width 13.4 Microbiology Microbiology 09/01/16 Blood Culture - Final, Complete NO GROWTH AFTER 5 DAYS 09/01/16 Blood Culture - Final, Complete NO GROWTH AFTER 5 DAYS 09/02/16 MRSA Screen - Final, Complete 09/01/16 Gram Stain - Final, Complete 09/01/16 Sputum Culture - Final, Complete Staph.aureus Methicillin Resis Achromobacter Xylosoxidans 09/01/16 Respiratory Virus Panel (PCR) (DL) - Final, Complete Parainfluenza 3 (Piv3) 09/01/16 Influenza Virus Type A Antigen - Final, Complete 09/01/16 Influenza Virus Type B Antigen - Final, Complete STAR HAYNES MD Sep 06, 2016 12:38
[2016-09-06 14:00] VITALS: BP 125/79
[2016-09-06] MEDS: FAMOTIDINE 20 MG TAB PEG SCH (20:07)
[2016-09-06 22:00] VITALS: BP 130/87
[2016-09-07] MEDS: VANCOMYCIN HCL 1,000 MG, VIAL MATE ADAPTER 1 EACH in D5W 250 ML IV SCH ×3 (02:25→18:39)
[2016-09-07 06:00] VITALS: BP 120/73
[2016-09-07 06:02] LABS: MEAN CORPUSCULAR HEMOGLOBIN 33.8 pg (27.0-33.0); MEAN CORPUSCULAR HGB CONC 33.1 g/dl (32.0-36.5); MEAN CORPUSCULAR VOLUME 102.1 fl (80.0-96.0); RED CELL DISTRIBUTION WIDTH 13.5 % (11.5-14.5); WHITE BLOOD COUNT 13.6 K/mm3 (4.0-10.0)
[2016-09-07] MEDS: HEPARIN SOD (PORCINE) 5000 UNITS/ML VIAL SC SCH ×3 (06:12→20:38)
[2016-09-07 06:15] LABS: ANION GAP 5 MEQ/L (8-16); BLOOD UREA NITROGEN 19 MG/DL (7-18); CALCIUM LEVEL 8.8 MG/DL (8.8-10.2); CARBON DIOXIDE LEVEL 39 MEQ/L (21-32); CHLORIDE LEVEL 97 MEQ/L (98-107); GLOMERULAR FILTRATION RATE > 60.0 (>49); GLUCOSE, FASTING 74 MG/DL (80-110); POTASSIUM SERUM 3.9 MEQ/L (3.5-5.1); SODIUM LEVEL 141 MEQ/L (136-145)
[2016-09-07] MEDS: ASPIRIN 81 MG CHEW TABLET PEG SCH (08:34)
[2016-09-07] MEDS: THIAMINE 100 MG TAB PEG SCH (08:34)
[2016-09-07] MEDS: predniSONE 20 MG TAB PO SCH (08:34)
[2016-09-07] MEDS: PRENATAL VITAMIN TAB PEG SCH (08:34)
[2016-09-07] MEDS ORDERED: PRED10TA PO (12:20)
--- NOTE | 2016-09-07 12:29 | IPNPDOC ---
Date Seen The patient was seen on 09/07/16. Progress Note SUBJECTIVE: The patient feels good has no complaints of chest pain fevers chills nausea vomiting or diarrhea OBJECTIVE PHYSICAL EXAMINATION: VITAL SIGNS: Currently requiring 4 L nasal cannula to maintain sats greater than 88 Please see below. 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 RESPIRATORY: Improved air movement decreased breath sounds throughout no rales. ABDOMINAL: PEG tube in place clean dry and intact bowel sounds are present abdomen soft EXTREMITIES: No clubbing Cyanosis or edema LABORATORY DATA: Please see below. MICROBIOLOGY:Please see below. IMAGING: No new imaging DVT prophylaxis ordered?: Heparin every 8 ASSESSMENT AND PLAN: This is a 66-year-old man with significant dyspnea likely multifactorial in nature. Problem #1 dyspnea: Parainfluenza positive, the patient at his baseline is on 10 mg of prednisone daily as well as 3 L of oxygen secondary to bronchiectasis pulmonary fibrosis and COPD. The patient does have acute on chronic infiltrates on the right lower lobe there is concern for potential healthcare associated pneumonia given MRSA + sputum and as such the patient is on currently on vancomycin day 6. He should complete 7d of appropriate Abx. Of note the patient usually does cycling courses of antibiotics one week per month of Bactrim Augmentin and ciprofloxacin as per his beam carrier hauler pusher Dr. Nance. In regards to the patient's COPD we are weaning his steroids. continue with nebulizer treatments, he appears to be improving at this time. 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 Problem #3 gastro esophageal reflux disease: Patient is on Pepcid via his PEG tube DISPOSITION: Currently improving at this time we will continue to monitor closely. I suspect he can be discharged home tomorrow VS, I&O, 24H, Fishbone Vital Signs/I&O Vital Signs Date Time Temp Pulse Resp B/P Pulse Ox O2 Delivery O2 Flow Rate FiO2 09/07/16 09:00 Nasal Cannula 4.0 09/07/16 06:00 97.3 78 18 120/73 93 09/02/16 04:00 40 I&O- Last 24 Hours up to 6 AM 09/07/16 06:00 Intake Total 1620 ml Output Total 2575 ml Balance -955 ml Laboratory Data 24H LABS Laboratory Tests 2 09/07/16 05:46: Anion Gap 5L, Blood Urea Nitrogen 19H, Creatinine 0.50L, Sodium Level 141, Potassium Level 3.9, Chloride Level 97L, Carbon Dioxide Level 39H, Calcium Level 8.8, Glomerular Filtration Rate > 60.0 09/07/16 06:05: Bedside Glucose (Misc Panel) 74L CBC/BMP Laboratory Tests 09/07/16 05:46 Calcium Level 8.8, Red Blood Count 4.16 L, Mean Corpuscular Volume 102.1 H, Mean Corpuscular Hemoglobin 33.8 H, Mean Corpuscular Hemoglobin Concent 33.1, Red Cell Distribution Width 13.5 Microbiology Microbiology 09/01/16 Blood Culture - Final, Complete NO GROWTH AFTER 5 DAYS 09/01/16 Blood Culture - Final, Complete NO GROWTH AFTER 5 DAYS 09/02/16 MRSA Screen - Final, Complete 09/01/16 Gram Stain - Final, Complete 09/01/16 Sputum Culture - Final, Complete Staph.aureus Methicillin Resis Achromobacter Xylosoxidans 09/01/16 Respiratory Virus Panel (PCR) (DL) - Final, Complete Parainfluenza 3 (Piv3) 09/01/16 Influenza Virus Type A Antigen - Final, Complete 09/01/16 Influenza Virus Type B Antigen - Final, Complete STAR HAYNES MD Sep 07, 2016 12:29
[2016-09-07 14:00] VITALS: BP 92/63
[2016-09-07 15:23] VITALS: BP 104/64
[2016-09-07] MEDS: FAMOTIDINE 20 MG TAB PEG SCH (20:38)
[2016-09-07 22:00] VITALS: BP 128/76
[2016-09-08] MEDS: VANCOMYCIN HCL 1,000 MG, VIAL MATE ADAPTER 1 EACH in D5W 250 ML IV SCH (02:39)
[2016-09-08] MEDS: HEPARIN SOD (PORCINE) 5000 UNITS/ML VIAL SC SCH (05:04)
[2016-09-08 06:00] VITALS: BP 118/69
[2016-09-08 06:08] LABS: MEAN CORPUSCULAR HEMOGLOBIN 33.8 pg (27.0-33.0); MEAN CORPUSCULAR HGB CONC 33.2 g/dl (32.0-36.5); MEAN CORPUSCULAR VOLUME 101.8 fl (80.0-96.0); RED CELL DISTRIBUTION WIDTH 13.4 % (11.5-14.5); WHITE BLOOD COUNT 14.5 K/mm3 (4.0-10.0)
[2016-09-08 06:21] LABS: ANION GAP 6 MEQ/L (8-16); BLOOD UREA NITROGEN 19 MG/DL (7-18); CALCIUM LEVEL 8.8 MG/DL (8.8-10.2); CARBON DIOXIDE LEVEL 38 MEQ/L (21-32); CHLORIDE LEVEL 97 MEQ/L (98-107); CREATININE FOR GFR 0.55 MG/DL (0.70-1.30); GLOMERULAR FILTRATION RATE > 60.0 (>49); GLUCOSE, FASTING 85 MG/DL (80-110); SODIUM LEVEL 141 MEQ/L (136-145)
[2016-09-08] MEDS: PRENATAL VITAMIN TAB PEG SCH (08:16)
[2016-09-08] MEDS: THIAMINE 100 MG TAB PEG SCH (08:16)
[2016-09-08] MEDS: predniSONE 20 MG TAB PO SCH (08:17)
[2016-09-08] MEDS: ASPIRIN 81 MG CHEW TABLET PEG SCH (08:17)
--- NOTE | 2016-09-08 13:09 | DSES ---
DATE OF ADMISSION: 09/01/2016 DATE OF DISCHARGE: 09/08/2016 DISCHARGE DIAGNOSIS: Methicillin-resistant Staphylococcus aureus (MRSA) pneumonia. SECONDARY DIAGNOSES: 1. Parainfluenza infection. 2. Chronic obstructive pulmonary disease (COPD) bronchiectasis. 3. Pulmonary fibrosis. 4. History of oral cancer. 5. Gastroesophageal reflux disease. HOSPITAL COURSE: The patient is a 66-year-old man who presented with dyspnea. He was found to have sputum positive for MRSA, as well as a respiratory PCR viral panel positive for parainfluenza. At his baseline, he is on 10 mg of prednisone daily, as well as 3 liters of oxygen. He had significant oxygen (O2) requirement upon arrival and was treated with stress-dosed steroids and vancomycin; and gradually, over several days, his symptoms improved. He completed 7 days of vancomycin while in the hospital. His respiratory status improved to his baseline. He is now back to his functional baseline, and his O2 requirement is at its baseline. SUBJECTIVE: Today, he has no complaints. He reports he is feeling well. No chest pain, shortness of breath, fevers, chills, nausea, vomiting, or diarrhea. OBJECTIVE: VITAL SIGNS: Temperature 97.6, pulse 86, respiratory rate 20, blood pressure (BP) 118/69, O2 saturation 93% on 4 liters nasal cannula. In general, he is a frail cachectic man sitting up in bed. He does not appear to be in any distress. 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 CARDIOVASCULAR EXAMINATION: S1, S2, regular. RESPIRATORY EXAMINATION: Improved breath sounds, fairly clear. ABDOMINAL EXAMINATION: He has a percutaneous endoscopic gastrostomy (PEG) tube, which is clean, dry, and intact. EXTREMITIES: No clubbing, cyanosis, or edema. LABORATORY STUDIES: WBC 14.5, hemoglobin 14.3, hematocrit 43.1, platelet count 299. Chemistry panel: Sodium 141, potassium 4.0, chloride 97, bicarbonate 38, BUN 19, creatinine 0.5. MICROBIOLOGY: Sputum positive on 09/01/2016 for MRSA, as well as a nasopharynx PCR panel positive for parainfluenza 3. The patient had a chest x-ray at the time of admission, which revealed diffuse chronic interstitial changes, acute on chronic bibasilar infiltrates right greater than left. ASSESSMENT AND PLAN: This is an 66-year-old man with methicillin-resistant Staphylococcus aureus pneumonia and parainfluenza infection. PROBLEMS: 1. Dyspnea, likely secondary to methicillin-resistant Staphylococcus aureus pneumonia and parainfluenza infection. The patient did improve. He is at his baseline respiratory status. He completed 7 days of IV vancomycin. He is at his baseline oxygenation. We are currently tapering prednisone. He has been on IV Solu-Medrol while he has been in the hospital. We are currently tapering it back down to his baseline at 10 mg daily. He has also the history of bronchiectasis, pulmonary fibrosis, and COPD. Of note, the patient follows with Dr. Nance and usually does cycling courses of antibiotics 1 week per month, Bactrim, augmentin, and ciprofloxacin. 2. History of oral cancer and jaw necrosis. He also has a history of recurrent aspirations. He is nothing by mouth, on PEG tube. He is on vitamins, aspirin, thiamine, and receives tube feeds. 3. Gastroesophageal reflux disease. He is on Pepcid via his PEG tube. DISPOSITION: The patient is being discharged home, where he is independent of activities of daily living (ADLs). He is at his functional baseline and respiratory baseline. He is to followup his primary care provider within 7 days and followup with pulmonary as scheduled. His activity and diet are as prior to admission. He is to return to the emergency room (ER) if his symptoms worsen. MEDICATIONS AT THE TIME OF DISCHARGE: - prednisone 30 mg for 4 days, 20 mg for 4 days, and then 10 mg daily as prior - Tylenol 650 mg every 4 hours as needed - albuterol sulfate nebulizer 2.5 mg inhaled three times a day as needed for shortness of breath - ventolin HFA two puffs every 4 hours as needed for shortness of breath - augmentin 875 PEG tube twice a day for 7 days on the first month after Cipro - aspirin 81 mg daily - ciprofloxacin 500 mg per tube twice a day for 7 days on the first month after Bactrim - multivitamin one tablet daily - Zantac 150 mg nightly - thiamine 150 mg PEG tube daily - Bactrim one tablet PEG tube twice a day for 7 days 1 month after the augmentin Greater than 30 minutes spent organizing disposition.
== END 2016-09-08 10:10 | disposition home or self-care (01) | DRG 177 ==
LOC: M ED 09:13 → M ED INP 11:08 → EEVIPCON 11:08 → M ICU 16:30 → M PCU 09-02 18:00 → M MSPAV 09-03 15:55
PROVIDERS: ADMIT Internal Medicine; ATTEND Internal Medicine
DX: J15.212 Pneumonia due to Methicillin resistant Staphylococcus aureus (principal); J96.00 Acute respiratory failure, unspecified whether with hypoxia or hypercapnia; R64 Cachexia; J44.9 Chronic obstructive pulmonary disease, unspecified; J84.10 Pulmonary fibrosis, unspecified; M27.2 Inflammatory conditions of jaws; B34.8 Other viral infections of unspecified site; M48.06 Spinal stenosis, lumbar region; K21.9 Gastro-esophageal reflux disease without esophagitis; Z85.818 Personal history of malignant neoplasm of other sites of lip, oral cavity, and pharynx; Z92.3 Personal history of irradiation; Z93.1 Gastrostomy status; Z87.01 Personal history of pneumonia (recurrent); Z79.2 Long term (current) use of antibiotics; Z99.81 Dependence on supplemental oxygen; Z87.891 Personal history of nicotine dependence; Z79.52 Long term (current) use of systemic steroids; Y95 Nosocomial condition

== ENCOUNTER 2017-02-02 11:58 | Emergency (ER) | payer MEDICARE, OTHER ==
[~2017-02-02] VITALS: Ht 185.4 cm; Wt 71.8 kg
[~2017-02-02 11:58] MED LIST changes: +AUGM875T28 PEG; +CIPR-249 PEG; -CIPR500T89 PEG; +LEVA1TAB2 PEG; +LEVA1TAB2 PO; -LEVA500T PEG; -LEVA500T PO; +VITA100T88 PEG; -predniSONE 10 MG TAB PEG SCH
[2017-02-02 11:59] VITALS: BP 123/67
[2017-02-02] MEDS ORDERED: METOCLOPRAMIDE INJ 10MG/2ML VIAL (J2765) IV ONE (12:45)
[2017-02-02] MEDS ORDERED: NS 500 ML IV ONE (12:45)
--- NOTE | 2017-02-02 13:16 | REP ---
CT of the brain without IV contrast: There are are no comparisons. There is no hemorrhage. The cortical stripe is unremarkable. There is no edema, mass effect or midline shift. Ventricles are normal size and midline. The visualized paranasal sinuses and mastoid air cells are unremarkable except for questionable left maxillary sinusitis. This should be correlated clinically. Impression: Essentially negative CT scan of the brain. There is no hemorrhage, acute infarct or mass. There is questionable left maxillary sinusitis. The maxillary sinus arteries are not demonstrated in entirety. This should be correlated with clinical findings. Signed by Raphael Dalton MD 02/02/2017 01:06 P
[2017-02-02] MEDS: IPRATROPIUM 0.5MG/ALBUTEROL 2.5MG INH SOL UD 3ML (DUONEB)(J7620) NEB PRN ×3 (13:28→13:44)
[2017-02-02 13:32] LABS: VENOUS O2 SATURATION 87.6 % (60.0-80.0); VENOUS PARTIAL PRESSURE O2 53.3 mmHg (30.0-50.0); VENOUS STANDARD HCO3 31.5 MEQ/L; VENOUS TOTAL CO2 36.7 MEQ/L (24.0-28.0)
[2017-02-02 13:46] LABS: ADD MANUAL DIFFER YES; MEAN CORPUSCULAR HEMOGLOBIN 35.8 pg (27.0-33.0); MEAN CORPUSCULAR HGB CONC 33.3 g/dl (32.0-36.5); MEAN CORPUSCULAR VOLUME 107.3 fl (80.0-96.0); PLATELET COUNT, AUTOMATED 186 k/mm3 (150-450); RED CELL DISTRIBUTION WIDTH 12.2 % (11.5-14.5); WHITE BLOOD COUNT 15.9 K/mm3 (4.0-10.0)
--- NOTE | 2017-02-02 13:49 | REP ---
CHEST, TWO VIEWS: Two views of the chest are performed and compared to multiple prior exams, the most recent of which is 09/01/2016. The patient has chronic bibasilar bronchiectasis and there are chronic parenchymal opacities in both lower lobes, which appear stable. There is no definite superimposed acute abnormality bilaterally. The heart is normal in size. The mediastinal silhouette is unchanged. There are degenerative changes of the spine. IMPRESSION: Chronic bibasilar opacities. No definite acute change. Signed by Raphael Mchugh MD 02/02/2017 05:25 P
[2017-02-02 13:55] LABS: ALBUMIN 3.5 GM/DL (3.2-5.2); ALKALINE PHOSPHATASE 169 U/L (45-117); ALT/SGPT 54 U/L (12-78); ANION GAP 5 MEQ/L (8-16); AST/SGOT 41 U/L (15-37); BILIRUBIN,DIRECT < 0.1 MG/DL (0.0-0.2); BILIRUBIN,TOTAL 0.2 MG/DL (0.2-1.0); BLOOD UREA NITROGEN 20 MG/DL (7-18); CARBON DIOXIDE LEVEL 31 MEQ/L (21-32); CHLORIDE LEVEL 97 MEQ/L (98-107); GLOMERULAR FILTRATION RATE > 60.0 (>49); GLUCOSE, FASTING 130 MG/DL (80-110); POTASSIUM SERUM 4.7 MEQ/L (3.5-5.1); SODIUM LEVEL 133 MEQ/L (136-145); TOTAL PROTEIN 7.4 GM/DL (6.4-8.2)
[2017-02-02 14:11] LABS: INR 0.91
[2017-02-02 14:12] LABS: ANISOCYTOSIS 1+; BANDS 17 % (< 11)
--- NOTE | 2017-02-02 15:06 | ED PDOC ---
Post-Departure Follow-Up ft elver umaña faxed formal report of ct head for fu Mukund Austin MD Feb 02, 2017 15:06
--- NOTE | 2017-02-03 09:00 | ECGEPIP ---
Stationary ECG Study [facility] - ED Test Date: 2017-02-02 Pat Name: MAULIK VALLEJO Department: Room: - Gender: M Willow Analyst: JCristiano : 1950 Requested By: MARIBELL GARNER Order Number: [id number] Reading MD: Miranda Johnson Measurements Intervals [place] Rate: 99 P: 82 SD: 136 QRS: 60 QRSD: 112 T: 61 QT: 321 QTc: 414 Interpretive Statements SINUS RHYTHM MODERATE INTRAVENTRICULAR CONDUCTION DELAY LOW VOLTAGE LIMB DECREASED RATE 09/01/16 Electronically Signed On 02-03-2017 8:59:51 EDT by Miranda Johnson
== END 2017-02-02 15:52 | disposition home or self-care (01) ==
LOC: M ED 11:58
DX: R51 Headache (principal); R06.00 Dyspnea, unspecified; R50.9 Fever, unspecified; J45.909 Unspecified asthma, uncomplicated; J44.9 Chronic obstructive pulmonary disease, unspecified; K57.90 Diverticulosis of intestine, part unspecified, without perforation or abscess without bleeding; Z85.818 Personal history of malignant neoplasm of other sites of lip, oral cavity, and pharynx; Z93.1 Gastrostomy status; Z87.891 Personal history of nicotine dependence; Z79.899 Other long term (current) drug therapy; Z79.82 Long term (current) use of aspirin; Z79.52 Long term (current) use of systemic steroids
CPT/HCPCS: 70450; 71020; 80048; 80076; 82550; 82553; 82803; 83605; 84484; 85025; 85610; 93005; 93041; 94640; 96374; 99284; J2765

== ENCOUNTER → 2017-06-23 | Outpatient (REF) | payer MEDICARE, OTHER ==
[2017-06-23 16:40] LABS: MEAN CORPUSCULAR HEMOGLOBIN 35.2 pg (27.0-33.0); MEAN CORPUSCULAR HGB CONC 32.7 g/dl (32.0-36.5); MEAN CORPUSCULAR VOLUME 107.7 fl (80.0-96.0); PLATELET COUNT, AUTOMATED 231 10^3/uL (150-450); RED CELL DISTRIBUTION WIDTH 13.5 % (11.5-14.5); WHITE BLOOD COUNT 11.3 10^3/uL (4.0-10.0)
[2017-06-23 17:03] LABS: ERYTHROCYTE SEDIMENTATION RATE 41 mm/hr (0-20)
[2017-06-23 17:21] LABS: ALBUMIN 3.6 GM/DL (3.2-5.2); ALBUMIN/GLOBULIN RATIO 0.84 (1.00-1.93); ALKALINE PHOSPHATASE 148 U/L (45-117); ALT/SGPT 57 U/L (12-78); ANION GAP 6 MEQ/L (8-16); AST/SGOT 32 U/L (7-37); BILIRUBIN,TOTAL 0.3 MG/DL (0.2-1.0); BLOOD UREA NITROGEN 21 MG/DL (7-18); CARBON DIOXIDE LEVEL 34 MEQ/L (21-32); CHLORIDE LEVEL 99 MEQ/L (98-107); CREATININE FOR GFR 0.67 MG/DL (0.70-1.30); GLOMERULAR FILTRATION RATE > 60.0 (>49); GLUCOSE, FASTING 95 MG/DL (80-110); POTASSIUM SERUM 4.8 MEQ/L (3.5-5.1); SODIUM LEVEL 139 MEQ/L (136-145); TOTAL PROTEIN 7.9 GM/DL (6.4-8.2)
== END ==
LOC: M LAB REF 16:23
PROVIDERS: ATTEND Surgery
DX: M27.2 Inflammatory conditions of jaws (principal); J44.1 Chronic obstructive pulmonary disease with (acute) exacerbation; Z79.2 Long term (current) use of antibiotics; Z79.899 Other long term (current) drug therapy

== ENCOUNTER → 2017-06-23 | Outpatient (CLI) | payer MEDICARE, OTHER ==
--- NOTE | 2017-06-23 16:26 | REP ---
Chest x-ray: Two views: History: Chronic obstructive lung disease. Comparison study February 02, 2017. Findings: Chronic increased density is seen in the right lower lobe. This is actually less prominent than on the February 02, 2017 prior study. Lungs are hyperinflated consistent with COPD. No new infiltrate is appreciated. Heart is not enlarged. There are degenerative changes in the thoracic spine. Impression: Chronic right lower lobe infiltrate, somewhat improved from the prior study. Evidence of COPD. No new infiltrate seen. Signed by Jeff Gillespie MD 06/24/2017 02:44 P
== END ==
LOC: M RAD 15:00
PROVIDERS: ATTEND Surgery
DX: J44.1 Chronic obstructive pulmonary disease with (acute) exacerbation (principal)

== ENCOUNTER 2017-06-26 10:54 | Emergency (ER) | payer MEDICARE, OTHER ==
[~2017-06-26] VITALS: Ht 185.4 cm; Wt 75.9 kg
[2017-06-26] MEDS ORDERED: SIMB1SUS OU (11:09)
[2017-06-26] MEDS ORDERED: MECLIZINE 25 MG TABLET PO ONE (12:15)
[2017-06-26 13:09] LABS: BASO # 0.1 10^3/uL (0.0-0.2); BASO % 0.4 % (0.0-1.0); EOS % 0.3 % (0.0-3.0); IMMATURE GRANULOCYTE % 0.3 % (0-0); LYMPH # 0.5 10^3/uL (1.5-4.5); LYMPH % 3.3 % (24.0-44.0); MEAN CORPUSCULAR HGB CONC 32.3 g/dl (32.0-36.5); MEAN CORPUSCULAR VOLUME 108.4 fl (80.0-96.0); MONO # 0.6 10^3/uL (0.0-0.8); NEUTROPHILS # 13.2 10^3/uL (1.8-7.7); NEUTROPHILS % 91.7 % (36.0-66.0); PLATELET COUNT, AUTOMATED 192 10^3/uL (150-450); RED CELL DISTRIBUTION WIDTH 13.4 % (11.5-14.5); WHITE BLOOD COUNT 14.4 10^3/uL (4.0-10.0)
--- NOTE | 2017-06-26 13:12 | REP ---
Portable chest, 12:45 p.m., single frontal view: Comparison studies are multiple prior studies dating to 05/12/2015. There is chronic increased radiodensity in the right lower lobe, unchanged from all prior studies dating to at least in 08/01/2014 suggesting chronic fibrosis. There are no acute infiltrates. Lung randall are chronically hyperinflated compatible with COPD but requiring clinical confirmation. Cardiac size is normal. The alek, mediastinum, and bony thorax are unremarkable. Impression: Chronic fibrotic changes in the right lower lobe. Chronic hyperinflation. No acute cardiopulmonary findings. Signed by Raphael Dalton MD 06/26/2017 01:04 P
[2017-06-26] MEDS ORDERED: MECLIZINE 25 MG TABLET PEG ONE (13:15)
[2017-06-26] MEDS ORDERED: NS 500 ML IV ONE (13:15)
--- NOTE | 2017-06-26 13:20 | REP ---
CT BRAIN WITHOUT CONTRAST: HISTORY: Vertigo. Evaluate for intracranial hemorrhage. Comparison head CT study is from February 02, 2017. CT FINDINGS: Digital lateral orchard worker radiograph is unremarkable. Bony calvarium is intact. The visualized paranasal sinuses are clear. There is minimal vascular calcification in the distal carotid arteries. The lateral, third, and fourth ventricles are normal in size and position. Mchugh-white differentiation pattern is normal above and below the tentorium. Minimal diffuse atrophy is seen. There is subtle periventricular low density in the frontal lobes bilaterally, unchanged from the comparison study, consistent with small vessel changes. There is no evidence of hemorrhage, acute infarction, mass, extra-axial fluid collection, or midline shift. IMPRESSION: Minimal diffuse atrophy and vascular calcification. Small vessel changes. No acute intracranial abnormality. Signed by Jeff Gillespie MD 06/26/2017 04:15 P
[2017-06-26 14:27] LABS: ANION GAP 3 MEQ/L (8-16); BLOOD UREA NITROGEN 20 MG/DL (7-18); CALCIUM LEVEL 9.1 MG/DL (8.8-10.2); CARBON DIOXIDE LEVEL 37 MEQ/L (21-32); CHLORIDE LEVEL 100 MEQ/L (98-107); CREATININE FOR GFR 0.71 MG/DL (0.70-1.30); GLOMERULAR FILTRATION RATE > 60.0 (>49); GLUCOSE, FASTING 148 MG/DL (80-110); MAGNESIUM LEVEL 2.3 MG/DL (1.8-2.4); POTASSIUM SERUM 4.2 MEQ/L (3.5-5.1); SODIUM LEVEL 140 MEQ/L (136-145)
[2017-06-26] MEDS ORDERED: MECL-68 PEG (15:48)
[2017-06-26 16:08] VITALS: BP 129/77
--- NOTE | 2017-06-26 18:12 | ECGEPIP ---
Stationary ECG Study [facility] - ED Test Date: 2017-06-26 Pat Name: MAULIK VALLEJO Department: Room: - Gender: M Gas Engineer: ct : 1950 Requested By: KO Winter Order Number: [id number] Reading MD: Miranda Johnson Measurements Intervals [place] Rate: 79 P: 84 FL: 146 QRS: 56 QRSD: 82 T: 58 QT: 380 QTc: 438 Interpretive Statements SINUS RHYTHM WITH OCCASIONAL SUPRAVENTRICULAR PREMATURE COMPLEXES NSTTW ABNORMALITY Electronically Signed On 06-26-2017 18:12:15 EST by Miranda Johnson
== END 2017-06-26 16:10 | disposition home or self-care (01) ==
LOC: M ED 10:54
DX: R42 Dizziness and giddiness (principal); I67.2 Cerebral atherosclerosis; G31.9 Degenerative disease of nervous system, unspecified; J84.10 Pulmonary fibrosis, unspecified; R91.8 Other nonspecific abnormal finding of lung field; J44.9 Chronic obstructive pulmonary disease, unspecified; K21.9 Gastro-esophageal reflux disease without esophagitis; M48.061 Spinal stenosis, lumbar region without neurogenic claudication; Z93.1 Gastrostomy status; Z79.52 Long term (current) use of systemic steroids; Z79.899 Other long term (current) drug therapy; Z79.82 Long term (current) use of aspirin; Z88.8 Allergy status to other drugs, medicaments and biological substances; Z96.22 Myringotomy tube(s) status; Z98.890 Other specified postprocedural states; Z87.891 Personal history of nicotine dependence

== ENCOUNTER 2017-08-05 05:47 | Day surgery (SDC) | payer MEDICARE, OTHER ==
[2017-08-05] MEDS: LR 1,000 ML IV (06:15)
[2017-08-05] MEDS: EPINEPHrine 1MG/ML INJ 30ML MD-VIAL As Ordered (07:23)
[2017-08-05] MEDS: METHYLENE BLUE 0.5% (5MG/ML) 10 ML AMP (PROVAYBLUE)(Q9968 PER 1MG) As Ordered (07:23)
[2017-08-05] MEDS ORDERED: LIDOCAINE 2% INJ 100 MG/5 ML SDV (FOR ANES.) As Ordered (08:03)
[2017-08-05] MEDS ORDERED: PROPOFOL 200 MG/20 ML VIAL As Ordered (08:03)
[2017-08-05] MEDS ORDERED: ROCURONIUM BROMIDE 50 MG/5 ML VIAL As Ordered (08:03)
[2017-08-05] MEDS ORDERED: fentaNYL 100 MCG/2 ML INJECTION (J3010) As Ordered (08:03)
[2017-08-05] MEDS ORDERED: ETOMIDATE INJ 20MG/10ML VIAL As Ordered (08:03)
[2017-08-05] MEDS ORDERED: MIDAZOLAM INJ 2 MG/2 ML VIAL (J2250) As Ordered (08:03)
[2017-08-05] MEDS ORDERED: PHENYLephrine HCL 500 MCG/5 ML (100MCG/ML) SYRINGE (J2370) As Ordered (08:06)
[2017-08-05] MEDS ORDERED: ONDANSETRON 4MG/2ML VIAL (J2405) As Ordered (08:14)
[2017-08-05] MEDS ORDERED: dexameTHASONE 4 MG/ML 1ML VIAL (J1100) As Ordered (08:14)
[2017-08-05] MEDS: LIDOCAINE W/EPINEPHRINE 1% 20ML VIAL As Ordered (08:20)
[2017-08-05] MEDS ORDERED: ePHEDrine INJ 50 MG/ML VIAL As Ordered (08:21)
[2017-08-05] MEDS ORDERED: NEOSTIGMINE 10 MG/10 ML VIAL (J2710) As Ordered (08:24)
[2017-08-05] MEDS ORDERED: GLYCOPYRROLATE INJ 0.2 MG/ML 2 ML VIAL As Ordered (08:24)
[2017-08-05] MEDS ORDERED: LR 1,000 ML IV ×2 (09:15→09:30)
[2017-08-05] MEDS ORDERED: MORPHINE 10 MG/ML 1ML VIAL IV (09:30)
[2017-08-05] MEDS ORDERED: ONDANSETRON 4MG/2ML VIAL (J2405) IV (09:30)
[2017-08-05] MEDS ORDERED: fentaNYL 100 MCG/2 ML INJECTION (J3010) IV (09:30)
[2017-08-05] MEDS ORDERED: ACETAMINOPHEN/CODEINE 12.5 ML UDC PO (10:00)
== END 2017-08-05 12:29 | disposition home or self-care (01) ==
LOC: M SDC 05:47
DX: M87.88 Other osteonecrosis, other site (principal); C09.9 Malignant neoplasm of tonsil, unspecified; H68.003 Unspecified Eustachian salpingitis, bilateral; K57.30 Diverticulosis of large intestine without perforation or abscess without bleeding; R29.898 Other symptoms and signs involving the musculoskeletal system; J44.9 Chronic obstructive pulmonary disease, unspecified; R13.10 Dysphagia, unspecified; Z88.1 Allergy status to other antibiotic agents; Z79.899 Other long term (current) drug therapy; Z79.82 Long term (current) use of aspirin; Z79.52 Long term (current) use of systemic steroids; Z92.3 Personal history of irradiation; Z96.1 Presence of intraocular lens
CPT/HCPCS: 11044

== ENCOUNTER 2017-09-25 17:33 | Inpatient (IN) | payer MEDICARE, OTHER ==
[2017-09-25 18:53] LABS: ABG BASE EXCESS 7.9 (-2.0-2.0); ABG HCO3 35.1 MEQ/L (22.0-26.0); ABG O2 SATURATION 97.3 % (95.0-99.0); ABG PARTIAL PRESSURE O2 91.6 mmHg (75.0-100.0); ABG STANDARD HCO3 31.7 MEQ/L (22.0-26.0); ABG TOTAL CO2 36.9 MEQ/L (23.0-31.0); ABG pH (ARTERIAL) 7.392 UNITS (7.350-7.450)
[2017-09-25 19:09] LABS: BASO % 0.1 % (0.0-1.0); HEMATOCRIT 45.8 % (42.0-52.0); HEMOGLOBIN 14.7 g/dl (14.0-18.0); IMMATURE GRANULOCYTE % 0.4 % (0-3.0); LYMPH # 0.4 10^3/uL (1.5-4.5); LYMPH % 3.6 % (24.0-44.0); MEAN CORPUSCULAR HEMOGLOBIN 34.9 pg (27.0-33.0); MEAN CORPUSCULAR HGB CONC 32.1 g/dl (32.0-36.5); MEAN CORPUSCULAR VOLUME 108.8 fl (80.0-96.0); MONO # 0.6 10^3/uL (0.0-0.8); MONO % 5.2 % (0.0-5.0); NEUTROPHILS # 11.1 10^3/uL (1.8-7.7); NEUTROPHILS % 90.7 % (36.0-66.0); PLATELET COUNT, AUTOMATED 236 10^3/uL (150-450); RED BLOOD COUNT 4.21 10^6/uL (4.30-6.10); RED CELL DISTRIBUTION WIDTH 13.2 % (11.5-14.5); WHITE BLOOD COUNT 12.2 10^3/uL (4.0-10.0)
[2017-09-25 19:37] LABS: ANION GAP 5 MEQ/L (8-16); BLOOD UREA NITROGEN 25 MG/DL (7-18); CARBON DIOXIDE LEVEL 35 MEQ/L (21-32); CHLORIDE LEVEL 100 MEQ/L (98-107); CK-MB VALUE MASS 3.4 NG/ML (0.0-3.6); CPK CREATINE PHOSPHOKINASE 83 U/L (39-308); CREATININE FOR GFR 0.66 MG/DL (0.70-1.30); GLOMERULAR FILTRATION RATE > 60.0 (>49); GLUCOSE, FASTING 127 MG/DL (70-100); MB/CK RELATIVE INDEX 4.09 (< OR =4); SODIUM LEVEL 140 MEQ/L (136-145); TROPONIN I < 0.02 NG/ML (< 0.10)
[2017-09-25 19:38] LABS: ALBUMIN 3.5 GM/DL (3.2-5.2); ALBUMIN/GLOBULIN RATIO 0.85 (1.00-1.93); ALKALINE PHOSPHATASE 150 U/L (45-117); ALT/SGPT 54 U/L (12-78); AST/SGOT 31 U/L (7-37); BILIRUBIN,DIRECT < 0.1 MG/DL (0.0-0.2); BILIRUBIN,TOTAL 0.2 MG/DL (0.2-1.0); NT-PRO BNP 101 PG/ML (<125); TOTAL PROTEIN 7.6 GM/DL (6.4-8.2)
[2017-09-25] MEDS ORDERED: ISOVUE-370 76% 100ML VIAL (Q9967) As Ordered (20:04)
[2017-09-25] MEDS: CEFTRIAXONE SOD 1 GM in APPROPRIATE DILUENT 1 EA IV (21:30)
[2017-09-25] MEDS: AZITHROMYCIN INJ 500 MG, VIAL MATE ADAPTER 1 EACH in D5W 250 ML IV (21:30)
[2017-09-25] MEDS: NS 1,000 ML IV (21:57)
[2017-09-25] MEDS ORDERED: ONDANSETRON 4MG/2ML VIAL (J2405) IV (22:00)
[2017-09-25] MEDS: methylPREDNISolone INJ 125 MG/2 ML VIAL (J2930) IV (22:00)
[2017-09-25] MEDS: HEPARIN SOD (PORCINE) 5000 UNITS/ML VIAL SC (22:00)
[2017-09-26] MEDS: IPRATROPIUM 0.5MG/ALBUTEROL 2.5MG INH SOL UD 3ML (DUONEB)(J7620) NEB ×4 (01:51→21:45)
[2017-09-26] MEDS: methylPREDNISolone INJ 125 MG/2 ML VIAL (J2930) IV ×3 (05:50→22:23)
[2017-09-26] MEDS: HEPARIN SOD (PORCINE) 5000 UNITS/ML VIAL SC ×3 (05:50→22:23)
[2017-09-26 06:31] LABS: HEMATOCRIT 42.4 % (42.0-52.0); HEMOGLOBIN 13.7 g/dl (14.0-18.0); MEAN CORPUSCULAR HGB CONC 32.3 g/dl (32.0-36.5); MEAN CORPUSCULAR VOLUME 108.4 fl (80.0-96.0); PLATELET COUNT, AUTOMATED 209 10^3/uL (150-450); RED BLOOD COUNT 3.91 10^6/uL (4.30-6.10); RED CELL DISTRIBUTION WIDTH 13.2 % (11.5-14.5); WHITE BLOOD COUNT 11.2 10^3/uL (4.0-10.0)
[2017-09-26 06:37] LABS: INR 0.89; PROTHROMBIN TIME 12.1 SECONDS (12.4-14.5)
[2017-09-26 06:42] LABS: ANION GAP 7 MEQ/L (8-16); BLOOD UREA NITROGEN 22 MG/DL (7-18); CALCIUM LEVEL 8.9 MG/DL (8.8-10.2); CARBON DIOXIDE LEVEL 33 MEQ/L (21-32); CHLORIDE LEVEL 101 MEQ/L (98-107); CREATININE FOR GFR 0.64 MG/DL (0.70-1.30); GLOMERULAR FILTRATION RATE > 60.0 (>49); GLUCOSE, FASTING 127 MG/DL (70-100); POTASSIUM SERUM 4.4 MEQ/L (3.5-5.1); SODIUM LEVEL 141 MEQ/L (136-145)
[2017-09-26] MEDS: ASPIRIN 81 MG CHEW TABLET PEG (08:34)
[2017-09-26] MEDS: THIAMINE 100 MG TAB PEG (08:34)
[2017-09-26 08:38] LABS: C REACTIVE PROTEIN QUANTITATIV 0.63 MG/DL (0.00-0.30); CPK CREATINE PHOSPHOKINASE 63 U/L (39-308); MB/CK RELATIVE INDEX 4.76 (< OR =4); TROPONIN I 0.02 NG/ML (< 0.10)
[2017-09-26] MEDS: NS 1,000 ML IV ×3 (10:11→20:07)
[2017-09-26] MEDS: FAMOTIDINE 20 MG TAB PEG (17:53)
[2017-09-26] MEDS: CEFTRIAXONE SOD 1 GM in APPROPRIATE DILUENT 1 EA IV (20:07)
[2017-09-26] MEDS: AZITHROMYCIN INJ 500 MG, VIAL MATE ADAPTER 1 EACH in D5W 250 ML IV (22:24)
[2017-09-27] MEDS: IPRATROPIUM 0.5MG/ALBUTEROL 2.5MG INH SOL UD 3ML (DUONEB)(J7620) NEB ×4 (02:00→20:06)
[2017-09-27] MEDS: HEPARIN SOD (PORCINE) 5000 UNITS/ML VIAL SC ×3 (05:41→21:45)
[2017-09-27] MEDS: methylPREDNISolone INJ 125 MG/2 ML VIAL (J2930) IV ×2 (05:41→13:57)
[2017-09-27] MEDS: NS 1,000 ML IV (05:41)
[2017-09-27 06:03] LABS: HEMATOCRIT 41.4 % (42.0-52.0); HEMOGLOBIN 13.3 g/dl (14.0-18.0); MEAN CORPUSCULAR HEMOGLOBIN 34.6 pg (27.0-33.0); MEAN CORPUSCULAR HGB CONC 32.1 g/dl (32.0-36.5); MEAN CORPUSCULAR VOLUME 107.8 fl (80.0-96.0); PLATELET COUNT, AUTOMATED 211 10^3/uL (150-450); RED BLOOD COUNT 3.84 10^6/uL (4.30-6.10); RED CELL DISTRIBUTION WIDTH 13.2 % (11.5-14.5); WHITE BLOOD COUNT 20.1 10^3/uL (4.0-10.0)
[2017-09-27 06:24] LABS: INR 0.94; PROTHROMBIN TIME 12.6 SECONDS (12.4-14.5)
[2017-09-27 06:35] LABS: ANION GAP 6 MEQ/L (8-16); BLOOD UREA NITROGEN 21 MG/DL (7-18); C REACTIVE PROTEIN QUANTITATIV 0.31 MG/DL (0.00-0.30); CALCIUM LEVEL 8.3 MG/DL (8.8-10.2); CARBON DIOXIDE LEVEL 31 MEQ/L (21-32); CHLORIDE LEVEL 104 MEQ/L (98-107); CREATININE FOR GFR 0.62 MG/DL (0.70-1.30); GLOMERULAR FILTRATION RATE > 60.0 (>49); GLUCOSE, FASTING 142 MG/DL (70-100); POTASSIUM SERUM 4.2 MEQ/L (3.5-5.1); SODIUM LEVEL 141 MEQ/L (136-145)
[2017-09-27] MEDS: ASPIRIN 81 MG CHEW TABLET PEG (08:32)
[2017-09-27] MEDS: THIAMINE 100 MG TAB PEG (08:33)
[2017-09-27] MEDS: methylPREDNISolone INJ 40 MG/1 ML VIAL (J2920) IV ×2 (14:00→21:45)
[2017-09-27] MEDS: FAMOTIDINE 20 MG TAB PEG (17:31)
[2017-09-27] MEDS: CEFTRIAXONE SOD 1 GM in APPROPRIATE DILUENT 1 EA IV (20:41)
[2017-09-27] MEDS: AZITHROMYCIN INJ 500 MG, VIAL MATE ADAPTER 1 EACH in D5W 250 ML IV (21:46)
[2017-09-28] MEDS: methylPREDNISolone INJ 40 MG/1 ML VIAL (J2920) IV ×2 (05:29→17:50)
[2017-09-28] MEDS: HEPARIN SOD (PORCINE) 5000 UNITS/ML VIAL SC ×3 (05:29→21:56)
[2017-09-28 05:50] LABS: HEMATOCRIT 41.2 % (42.0-52.0); HEMOGLOBIN 13.4 g/dl (14.0-18.0); MEAN CORPUSCULAR HEMOGLOBIN 35.2 pg (27.0-33.0); MEAN CORPUSCULAR HGB CONC 32.5 g/dl (32.0-36.5); MEAN CORPUSCULAR VOLUME 108.1 fl (80.0-96.0); PLATELET COUNT, AUTOMATED 206 10^3/uL (150-450); RED BLOOD COUNT 3.81 10^6/uL (4.30-6.10); RED CELL DISTRIBUTION WIDTH 13.2 % (11.5-14.5); WHITE BLOOD COUNT 20.6 10^3/uL (4.0-10.0)
[2017-09-28 06:02] LABS: INR 0.89; PROTHROMBIN TIME 12.1 SECONDS (12.4-14.5)
[2017-09-28 06:10] LABS: ANION GAP 7 MEQ/L (8-16); BLOOD UREA NITROGEN 24 MG/DL (7-18); C REACTIVE PROTEIN QUANTITATIV < 0.30 MG/DL (0.00-0.30); CALCIUM LEVEL 8.5 MG/DL (8.8-10.2); CARBON DIOXIDE LEVEL 32 MEQ/L (21-32); CHLORIDE LEVEL 103 MEQ/L (98-107); CREATININE FOR GFR 0.57 MG/DL (0.70-1.30); GLOMERULAR FILTRATION RATE > 60.0 (>49); GLUCOSE, FASTING 124 MG/DL (70-100); POTASSIUM SERUM 4.3 MEQ/L (3.5-5.1); SODIUM LEVEL 142 MEQ/L (136-145)
[2017-09-28 06:30] LABS: INFLUENZA A AMPLIFICATION NEGATIVE (NEGATIVE); INFLUENZA B AMPLIFICATION NEGATIVE (NEGATIVE)
[2017-09-28] MEDS: IPRATROPIUM 0.5MG/ALBUTEROL 2.5MG INH SOL UD 3ML (DUONEB)(J7620) NEB ×3 (07:26→20:06)
[2017-09-28] MEDS: THIAMINE 100 MG TAB PEG (09:37)
[2017-09-28] MEDS: ASPIRIN 81 MG CHEW TABLET PEG (09:37)
[2017-09-28] MEDS: LINEZOLID 600 MG in APPROPRIATE DILUENT 1 EA IV (13:58)
[2017-09-28] MEDS: FAMOTIDINE 20 MG TAB PEG (17:50)
[2017-09-29] MEDS: LINEZOLID 600 MG in APPROPRIATE DILUENT 1 EA IV ×2 (00:59→13:43)
[2017-09-29] MEDS: IPRATROPIUM 0.5MG/ALBUTEROL 2.5MG INH SOL UD 3ML (DUONEB)(J7620) NEB ×4 (01:42→19:46)
[2017-09-29] MEDS: methylPREDNISolone INJ 40 MG/1 ML VIAL (J2920) IV (05:38)
[2017-09-29] MEDS: HEPARIN SOD (PORCINE) 5000 UNITS/ML VIAL SC ×3 (05:38→21:19)
[2017-09-29 06:02] LABS: HEMATOCRIT 43.3 % (42.0-52.0); HEMOGLOBIN 14.1 g/dl (14.0-18.0); MEAN CORPUSCULAR HEMOGLOBIN 35.2 pg (27.0-33.0); MEAN CORPUSCULAR HGB CONC 32.6 g/dl (32.0-36.5); PLATELET COUNT, AUTOMATED 212 10^3/uL (150-450); RED BLOOD COUNT 4.01 10^6/uL (4.30-6.10); RED CELL DISTRIBUTION WIDTH 13.2 % (11.5-14.5); WHITE BLOOD COUNT 21.4 10^3/uL (4.0-10.0)
[2017-09-29 06:13] LABS: INR 0.91; PROTHROMBIN TIME 12.3 SECONDS (12.4-14.5)
[2017-09-29 06:21] LABS: ANION GAP 3 MEQ/L (8-16); BLOOD UREA NITROGEN 24 MG/DL (7-18); C REACTIVE PROTEIN QUANTITATIV < 0.30 MG/DL (0.00-0.30); CALCIUM LEVEL 8.6 MG/DL (8.8-10.2); CARBON DIOXIDE LEVEL 35 MEQ/L (21-32); CHLORIDE LEVEL 101 MEQ/L (98-107); GLOMERULAR FILTRATION RATE > 60.0 (>49); GLUCOSE, FASTING 113 MG/DL (70-100); POTASSIUM SERUM 4.2 MEQ/L (3.5-5.1); SODIUM LEVEL 139 MEQ/L (136-145)
[2017-09-29] MEDS: THIAMINE 100 MG TAB PEG (08:14)
[2017-09-29] MEDS: ASPIRIN 81 MG CHEW TABLET PEG (08:14)
[2017-09-29] MEDS: FAMOTIDINE 20 MG TAB PEG (17:07)
[2017-09-29] MEDS: BACTRIM 160MG/800MG DS TAB PO (21:18)
[2017-09-30] MEDS: IPRATROPIUM 0.5MG/ALBUTEROL 2.5MG INH SOL UD 3ML (DUONEB)(J7620) NEB ×4 (01:14→20:18)
[2017-09-30] MEDS: HEPARIN SOD (PORCINE) 5000 UNITS/ML VIAL SC ×3 (05:27→21:16)
[2017-09-30 06:39] LABS: HEMATOCRIT 45.2 % (42.0-52.0); HEMOGLOBIN 14.5 g/dl (14.0-18.0); MEAN CORPUSCULAR HEMOGLOBIN 34.4 pg (27.0-33.0); MEAN CORPUSCULAR HGB CONC 32.1 g/dl (32.0-36.5); MEAN CORPUSCULAR VOLUME 107.4 fl (80.0-96.0); PLATELET COUNT, AUTOMATED 190 10^3/uL (150-450); RED BLOOD COUNT 4.21 10^6/uL (4.30-6.10); RED CELL DISTRIBUTION WIDTH 13.4 % (11.5-14.5); WHITE BLOOD COUNT 12.8 10^3/uL (4.0-10.0)
[2017-09-30 06:49] LABS: PROTHROMBIN TIME 12.2 SECONDS (12.4-14.5)
[2017-09-30 06:54] LABS: ANION GAP 2 MEQ/L (8-16); BLOOD UREA NITROGEN 23 MG/DL (7-18); CALCIUM LEVEL 8.5 MG/DL (8.8-10.2); CARBON DIOXIDE LEVEL 35 MEQ/L (21-32); CHLORIDE LEVEL 103 MEQ/L (98-107); CREATININE FOR GFR 0.63 MG/DL (0.70-1.30); GLOMERULAR FILTRATION RATE > 60.0 (>49); GLUCOSE, FASTING 81 MG/DL (70-100); POTASSIUM SERUM 4.4 MEQ/L (3.5-5.1); SODIUM LEVEL 140 MEQ/L (136-145)
[2017-09-30] MEDS: predniSONE 20 MG TAB PO (09:09)
[2017-09-30] MEDS: BACTRIM 160MG/800MG DS TAB PO (09:09)
[2017-09-30] MEDS: ASPIRIN 81 MG CHEW TABLET PEG (09:09)
[2017-09-30] MEDS: THIAMINE 100 MG TAB PEG (09:10)
[2017-09-30] MEDS ORDERED: PILL CUTTER/CRUSHER XX (09:45)
[2017-09-30 11:16] LABS: ABG BASE EXCESS 6.3 (-2.0-2.0); ABG HCO3 37.4 MEQ/L (22.0-26.0); ABG PARTIAL PRESSURE O2 70.6 mmHg (75.0-100.0)
[2017-09-30 11:19] LABS: ABG PARTIAL PRESSURE CO2 85.2 mmHg (35.0-45.0)
[2017-09-30] MEDS ORDERED: MIDAZOLAM INJ 2 MG/2 ML VIAL (J2250) As Ordered ×2 (11:23)
[2017-09-30] MEDS: MIDAZOLAM INJ 2 MG/2 ML VIAL (J2250) IV ×3 (11:43→12:48)
[2017-09-30] MEDS ORDERED: MORPHINE 4 MG/ML 1ML VIAL (J2270) IV (12:00)
[2017-09-30] MEDS: KCL 20MEQ IN D5/0.45NS 1000ML 1,000 ML IV ×2 (12:28→21:16)
[2017-09-30 12:46] LABS: ABG BASE EXCESS 8.1 (-2.0-2.0); ABG HCO3 35.8 MEQ/L (22.0-26.0); ABG O2 SATURATION 89.5 % (95.0-99.0); ABG PARTIAL PRESSURE O2 58.6 mmHg (75.0-100.0); ABG STANDARD HCO3 31.7 MEQ/L (22.0-26.0); ABG TOTAL CO2 37.7 MEQ/L (23.0-31.0); ABG pH (ARTERIAL) 7.377 UNITS (7.350-7.450)
[2017-09-30 12:49] LABS: ABG PARTIAL PRESSURE CO2 62.3 mmHg (35.0-45.0)
[2017-09-30] MEDS: NS 1,000 ML IV ×2 (13:00→14:50)
[2017-09-30] MEDS: PROPOFOL 1,000 MG in APPROPRIATE DILUENT 1 EA IV (13:22)
[2017-09-30] MEDS: ACETAMINOPHEN 325 MG/10.15 ML UDC PEG (13:23)
[2017-09-30] MEDS: AMPICILLIN SOD/SULBACTAM SOD 3 GM in D5W MINI-BAG PLUS 100 ML IV ×2 (16:32→20:23)
[2017-09-30] MEDS ORDERED: NOREPINEPHRINE 4 MG/4 ML AMP As Ordered (17:18)
[2017-09-30] MEDS: NOREPINEPHRINE BITARTRATE 8 MG in D5W 500 ML IV (17:30)
[2017-09-30] MEDS: FAMOTIDINE 20 MG TAB PEG (18:51)
[2017-09-30] MEDS ORDERED: MIDAZOLAM INJ 2 MG/2 ML VIAL (J2250) IV (19:30)
[2017-10-01] MEDS: AMPICILLIN SOD/SULBACTAM SOD 3 GM in D5W MINI-BAG PLUS 100 ML IV ×4 (00:29→17:40)
[2017-10-01] MEDS: IPRATROPIUM 0.5MG/ALBUTEROL 2.5MG INH SOL UD 3ML (DUONEB)(J7620) NEB ×4 (01:36→20:12)
[2017-10-01] MEDS: KCL 20MEQ IN D5/0.45NS 1000ML 1,000 ML IV ×3 (05:14→20:15)
[2017-10-01] MEDS: PROPOFOL 1,000 MG in APPROPRIATE DILUENT 1 EA IV ×2 (05:17→13:27)
[2017-10-01 05:35] LABS: MEAN CORPUSCULAR HEMOGLOBIN 35.3 pg (27.0-33.0); MEAN CORPUSCULAR HGB CONC 32.1 g/dl (32.0-36.5); MEAN CORPUSCULAR VOLUME 109.8 fl (80.0-96.0); PLATELET COUNT, AUTOMATED 165 10^3/uL (150-450); RED BLOOD COUNT 3.46 10^6/uL (4.30-6.10); RED CELL DISTRIBUTION WIDTH 13.5 % (11.5-14.5); WHITE BLOOD COUNT 12.6 10^3/uL (4.0-10.0)
[2017-10-01 05:39] LABS: HEMOGLOBIN 12.2 g/dl (14.0-18.0)
[2017-10-01 05:51] LABS: INR 0.95; PROTHROMBIN TIME 12.8 SECONDS (12.4-14.5)
[2017-10-01 05:56] LABS: ABG HCO3 28.9 MEQ/L (22.0-26.0); ABG O2 SATURATION 95.9 % (95.0-99.0); ABG PARTIAL PRESSURE CO2 44.5 mmHg (35.0-45.0); ABG TOTAL CO2 30.3 MEQ/L (23.0-31.0); ABG pH (ARTERIAL) 7.431 UNITS (7.350-7.450)
[2017-10-01 06:01] LABS: ANION GAP 1 MEQ/L (8-16); BLOOD UREA NITROGEN 16 MG/DL (7-18); C REACTIVE PROTEIN QUANTITATIV 5.99 MG/DL (0.00-0.30); CALCIUM LEVEL 7.7 MG/DL (8.8-10.2); CARBON DIOXIDE LEVEL 35 MEQ/L (21-32); CHLORIDE LEVEL 103 MEQ/L (98-107); CREATININE FOR GFR 0.63 MG/DL (0.70-1.30); GLOMERULAR FILTRATION RATE > 60.0 (>49); GLUCOSE, FASTING 150 MG/DL (70-100); POTASSIUM SERUM 4.1 MEQ/L (3.5-5.1); SODIUM LEVEL 139 MEQ/L (136-145)
[2017-10-01] MEDS: HEPARIN SOD (PORCINE) 5000 UNITS/ML VIAL SC ×3 (06:10→21:38)
[2017-10-01 07:26] LABS: MAGNESIUM LEVEL 2.3 MG/DL (1.8-2.4)
[2017-10-01 08:19] LABS: ABG BASE EXCESS 7.5 (-2.0-2.0); ABG HCO3 29.8 MEQ/L (22.0-26.0); ABG O2 SATURATION 99.4 % (95.0-99.0); ABG PARTIAL PRESSURE CO2 34.4 mmHg (35.0-45.0); ABG PARTIAL PRESSURE O2 129.5 mmHg (75.0-100.0); ABG STANDARD HCO3 31.3 MEQ/L (22.0-26.0); ABG TOTAL CO2 30.8 MEQ/L (23.0-31.0); ABG pH (ARTERIAL) 7.555 UNITS (7.350-7.450)
[2017-10-01] MEDS ORDERED: PILL CUTTER/CRUSHER XX (08:30)
[2017-10-01] MEDS: ASPIRIN 81 MG CHEW TABLET PEG (08:37)
[2017-10-01] MEDS: THIAMINE 100 MG TAB PEG (08:37)
[2017-10-01] MEDS ORDERED: LIDOCAINE 1% MDV 20ML VIAL As Ordered (12:21)
[2017-10-01] MEDS: LIDOCAINE 1% MDV 20ML VIAL SC (12:30)
[2017-10-01] MEDS ORDERED: MIDAZOLAM INJ 2 MG/2 ML VIAL (J2250) IV (13:00)
[2017-10-01 13:24] LABS: ABG BASE EXCESS 5.9 (-2.0-2.0); ABG PARTIAL PRESSURE CO2 57.7 mmHg (35.0-45.0); ABG STANDARD HCO3 29.6 MEQ/L (22.0-26.0); ABG TOTAL CO2 34.8 MEQ/L (23.0-31.0); ABG pH (ARTERIAL) 7.375 UNITS (7.350-7.450)
[2017-10-01] MEDS: MIDAZOLAM INJ 2 MG/2 ML VIAL (J2250) IV (13:27)
[2017-10-01] MEDS: FAMOTIDINE 20 MG TAB PEG (17:40)
[2017-10-01] MEDS: NOREPINEPHRINE BITARTRATE 8 MG in D5W 500 ML IV (18:00)
[2017-10-02] MEDS: AMPICILLIN SOD/SULBACTAM SOD 3 GM in D5W MINI-BAG PLUS 100 ML IV (01:24)
[2017-10-02] MEDS: NOREPINEPHRINE BITARTRATE 8 MG in D5W 500 ML IV (01:40)
[2017-10-02] MEDS: IPRATROPIUM 0.5MG/ALBUTEROL 2.5MG INH SOL UD 3ML (DUONEB)(J7620) NEB ×4 (01:47→20:33)
[2017-10-02] MEDS: KCL 20MEQ IN D5/0.45NS 1000ML 1,000 ML IV ×3 (04:07→19:56)
[2017-10-02] MEDS: PROPOFOL 1,000 MG in APPROPRIATE DILUENT 1 EA IV (04:08)
[2017-10-02 05:16] LABS: HEMATOCRIT 38.2 % (42.0-52.0); HEMOGLOBIN 12.2 g/dl (14.0-18.0); MEAN CORPUSCULAR HEMOGLOBIN 34.7 pg (27.0-33.0); MEAN CORPUSCULAR HGB CONC 31.9 g/dl (32.0-36.5); MEAN CORPUSCULAR VOLUME 108.5 fl (80.0-96.0); PLATELET COUNT, AUTOMATED 165 10^3/uL (150-450); RED BLOOD COUNT 3.52 10^6/uL (4.30-6.10); RED CELL DISTRIBUTION WIDTH 13.7 % (11.5-14.5)
[2017-10-02 05:31] LABS: ANION GAP 3 MEQ/L (8-16); BLOOD UREA NITROGEN 12 MG/DL (7-18); CALCIUM LEVEL 7.7 MG/DL (8.8-10.2); CARBON DIOXIDE LEVEL 35 MEQ/L (21-32); CHLORIDE LEVEL 103 MEQ/L (98-107); GLOMERULAR FILTRATION RATE > 60.0 (>49); GLUCOSE, FASTING 134 MG/DL (70-100); POTASSIUM SERUM 4.1 MEQ/L (3.5-5.1); SODIUM LEVEL 141 MEQ/L (136-145)
[2017-10-02 05:33] LABS: PROTHROMBIN TIME 13.2 SECONDS (12.4-14.5)
[2017-10-02 05:59] LABS: ABG BASE EXCESS 4.3 (-2.0-2.0); ABG O2 SATURATION 96.3 % (95.0-99.0); ABG PARTIAL PRESSURE CO2 43.6 mmHg (35.0-45.0); ABG STANDARD HCO3 28.3 MEQ/L (22.0-26.0); ABG TOTAL CO2 30.4 MEQ/L (23.0-31.0); ABG pH (ARTERIAL) 7.441 UNITS (7.350-7.450)
[2017-10-02] MEDS: HEPARIN SOD (PORCINE) 5000 UNITS/ML VIAL SC (06:38)
[2017-10-02] MEDS: ENOXAPARIN 40 MG/0.4 ML SYRINGE (J1650) SC (08:06)
[2017-10-02] MEDS: VANCOMYCIN HCL 1,000 MG, VIAL MATE ADAPTER 1 EACH in D5W 250 ML IV ×3 (08:07→19:56)
[2017-10-02] MEDS: ASPIRIN 81 MG CHEW TABLET PEG (08:07)
[2017-10-02] MEDS: THIAMINE 100 MG TAB PEG (08:07)
[2017-10-02] MEDS ORDERED: VANCOMYCIN 1000 MG/20 ML VIAL (J3370) As Ordered (08:08)
[2017-10-02] MEDS: LevoFLOXacin 750 MG TABLET PEG (09:02)
[2017-10-02 15:15] LABS: BEDSIDE GLUCOSE 87 MG/DL (80-115)
[2017-10-02 15:34] LABS: POTASSIUM SERUM 4.2 MEQ/L (3.5-5.1)
[2017-10-02] MEDS: FAMOTIDINE 20 MG TAB PEG (18:10)
[2017-10-03] MEDS: IPRATROPIUM 0.5MG/ALBUTEROL 2.5MG INH SOL UD 3ML (DUONEB)(J7620) NEB ×4 (02:20→18:11)
[2017-10-03] MEDS: KCL 20MEQ IN D5/0.45NS 1000ML 1,000 ML IV ×3 (03:48→20:25)
[2017-10-03] MEDS: ENOXAPARIN 40 MG/0.4 ML SYRINGE (J1650) SC (09:44)
[2017-10-03] MEDS: VANCOMYCIN HCL 1,000 MG, VIAL MATE ADAPTER 1 EACH in D5W 250 ML IV ×2 (09:44→20:24)
[2017-10-03] MEDS: THIAMINE 100 MG TAB PEG (09:45)
[2017-10-03] MEDS: ASPIRIN 81 MG CHEW TABLET PEG (09:45)
[2017-10-03] MEDS: METOCLOPRAMIDE HCL LIQUID 10 MG/10 ML UDC GT ×2 (12:56→20:39)
[2017-10-03] MEDS: FAMOTIDINE 20 MG TAB PEG (18:28)
[2017-10-03] MEDS: ACETAMINOPHEN 325 MG/10.15 ML UDC PEG (18:29)
[2017-10-03 19:44] LABS: VANCOMYCIN LEVEL TROUGH 12.1 UG/ML (10.0-20.0)
[2017-10-04] MEDS: IPRATROPIUM 0.5MG/ALBUTEROL 2.5MG INH SOL UD 3ML (DUONEB)(J7620) NEB ×4 (02:02→18:32)
[2017-10-04] MEDS: KCL 20MEQ IN D5/0.45NS 1000ML 1,000 ML IV (04:32)
[2017-10-04] MEDS: VANCOMYCIN HCL 1,000 MG, VIAL MATE ADAPTER 1 EACH in D5W 250 ML IV ×2 (04:33→15:55)
[2017-10-04 08:07] LABS: HEMATOCRIT 42.7 % (42.0-52.0); HEMOGLOBIN 13.8 g/dl (14.0-18.0); MEAN CORPUSCULAR HEMOGLOBIN 34.8 pg (27.0-33.0); MEAN CORPUSCULAR HGB CONC 32.3 g/dl (32.0-36.5); MEAN CORPUSCULAR VOLUME 107.6 fl (80.0-96.0); PLATELET COUNT, AUTOMATED 206 10^3/uL (150-450); RED BLOOD COUNT 3.97 10^6/uL (4.30-6.10); WHITE BLOOD COUNT 11.1 10^3/uL (4.0-10.0)
[2017-10-04 08:27] LABS: ANION GAP 2 MEQ/L (8-16); BLOOD UREA NITROGEN 10 MG/DL (7-18); CALCIUM LEVEL 8.6 MG/DL (8.8-10.2); CARBON DIOXIDE LEVEL 35 MEQ/L (21-32); CHLORIDE LEVEL 103 MEQ/L (98-107); CREATININE FOR GFR 0.59 MG/DL (0.70-1.30); GLOMERULAR FILTRATION RATE > 60.0 (>49); GLUCOSE, FASTING 126 MG/DL (70-100); POTASSIUM SERUM 4.7 MEQ/L (3.5-5.1); SODIUM LEVEL 140 MEQ/L (136-145)
[2017-10-04] MEDS: ENOXAPARIN 40 MG/0.4 ML SYRINGE (J1650) SC (08:41)
[2017-10-04] MEDS: METOCLOPRAMIDE HCL LIQUID 10 MG/10 ML UDC GT ×2 (08:41→20:05)
[2017-10-04] MEDS: THIAMINE 100 MG TAB PEG (08:41)
[2017-10-04] MEDS: ASPIRIN 81 MG CHEW TABLET PEG (08:41)
[2017-10-04] MEDS: FAMOTIDINE 20 MG TAB PEG (17:52)
[2017-10-05] MEDS: IPRATROPIUM 0.5MG/ALBUTEROL 2.5MG INH SOL UD 3ML (DUONEB)(J7620) NEB ×4 (02:00→19:22)
[2017-10-05 03:59] LABS: HEMATOCRIT 41.1 % (42.0-52.0); HEMOGLOBIN 13.3 g/dl (14.0-18.0); MEAN CORPUSCULAR HEMOGLOBIN 34.4 pg (27.0-33.0); MEAN CORPUSCULAR HGB CONC 32.4 g/dl (32.0-36.5); MEAN CORPUSCULAR VOLUME 106.2 fl (80.0-96.0); PLATELET COUNT, AUTOMATED 226 10^3/uL (150-450); RED BLOOD COUNT 3.87 10^6/uL (4.30-6.10); RED CELL DISTRIBUTION WIDTH 12.8 % (11.5-14.5); WHITE BLOOD COUNT 10.9 10^3/uL (4.0-10.0)
[2017-10-05] MEDS: VANCOMYCIN HCL 1,000 MG, VIAL MATE ADAPTER 1 EACH in D5W 250 ML IV ×2 (04:04→16:22)
[2017-10-05 04:22] LABS: ANION GAP 4 MEQ/L (8-16); BLOOD UREA NITROGEN 12 MG/DL (7-18); CARBON DIOXIDE LEVEL 34 MEQ/L (21-32); CHLORIDE LEVEL 100 MEQ/L (98-107); CREATININE FOR GFR 0.61 MG/DL (0.70-1.30); GLOMERULAR FILTRATION RATE > 60.0 (>49); GLUCOSE, FASTING 74 MG/DL (70-100); SODIUM LEVEL 138 MEQ/L (136-145)
[2017-10-05] MEDS: THIAMINE 100 MG TAB PEG (10:04)
[2017-10-05] MEDS: ENOXAPARIN 40 MG/0.4 ML SYRINGE (J1650) SC (10:05)
[2017-10-05] MEDS: ASPIRIN 81 MG CHEW TABLET PEG (10:05)
[2017-10-05] MEDS: METOCLOPRAMIDE HCL LIQUID 10 MG/10 ML UDC GT ×2 (12:46→21:26)
[2017-10-05 15:45] LABS: VANCOMYCIN LEVEL TROUGH 15.3 UG/ML (10.0-20.0)
[2017-10-05] MEDS: FAMOTIDINE 20 MG TAB PEG (18:10)
[2017-10-06] MEDS: IPRATROPIUM 0.5MG/ALBUTEROL 2.5MG INH SOL UD 3ML (DUONEB)(J7620) NEB ×4 (01:39→19:58)
[2017-10-06] MEDS: VANCOMYCIN HCL 1,000 MG, VIAL MATE ADAPTER 1 EACH in D5W 250 ML IV ×2 (03:36→16:17)
[2017-10-06 04:42] LABS: HEMATOCRIT 37.7 % (42.0-52.0); HEMOGLOBIN 12.2 g/dl (14.0-18.0); MEAN CORPUSCULAR HEMOGLOBIN 34.9 pg (27.0-33.0); MEAN CORPUSCULAR HGB CONC 32.4 g/dl (32.0-36.5); MEAN CORPUSCULAR VOLUME 107.7 fl (80.0-96.0); PLATELET COUNT, AUTOMATED 202 10^3/uL (150-450); RED CELL DISTRIBUTION WIDTH 12.5 % (11.5-14.5); WHITE BLOOD COUNT 10.2 10^3/uL (4.0-10.0)
[2017-10-06 05:13] LABS: ANION GAP 4 MEQ/L (8-16); BLOOD UREA NITROGEN 14 MG/DL (7-18); CALCIUM LEVEL 8.7 MG/DL (8.8-10.2); CARBON DIOXIDE LEVEL 35 MEQ/L (21-32); CHLORIDE LEVEL 99 MEQ/L (98-107); CREATININE FOR GFR 0.68 MG/DL (0.70-1.30); GLOMERULAR FILTRATION RATE > 60.0 (>49); GLUCOSE, FASTING 120 MG/DL (70-100); MAGNESIUM LEVEL 2.1 MG/DL (1.8-2.4); SODIUM LEVEL 138 MEQ/L (136-145)
[2017-10-06] MEDS: ASPIRIN 81 MG CHEW TABLET PEG (08:39)
[2017-10-06] MEDS: THIAMINE 100 MG TAB PEG (08:39)
[2017-10-06] MEDS: ENOXAPARIN 40 MG/0.4 ML SYRINGE (J1650) SC (08:39)
[2017-10-06] MEDS: METOCLOPRAMIDE HCL LIQUID 10 MG/10 ML UDC GT ×2 (08:40→20:35)
[2017-10-06] MEDS: FAMOTIDINE 20 MG TAB PEG (17:32)
[2017-10-07] MEDS: IPRATROPIUM 0.5MG/ALBUTEROL 2.5MG INH SOL UD 3ML (DUONEB)(J7620) NEB ×4 (00:55→21:49)
[2017-10-07] MEDS: VANCOMYCIN HCL 1,000 MG, VIAL MATE ADAPTER 1 EACH in D5W 250 ML IV (03:55)
[2017-10-07 05:37] LABS: HEMATOCRIT 36.7 % (42.0-52.0); HEMOGLOBIN 11.8 g/dl (14.0-18.0); MEAN CORPUSCULAR HEMOGLOBIN 34.5 pg (27.0-33.0); MEAN CORPUSCULAR HGB CONC 32.2 g/dl (32.0-36.5); MEAN CORPUSCULAR VOLUME 107.3 fl (80.0-96.0); PLATELET COUNT, AUTOMATED 218 10^3/uL (150-450); RED BLOOD COUNT 3.42 10^6/uL (4.30-6.10); RED CELL DISTRIBUTION WIDTH 12.6 % (11.5-14.5); WHITE BLOOD COUNT 10.2 10^3/uL (4.0-10.0)
[2017-10-07 05:48] LABS: ANION GAP 6 MEQ/L (8-16); BLOOD UREA NITROGEN 14 MG/DL (7-18); CALCIUM LEVEL 8.8 MG/DL (8.8-10.2); CARBON DIOXIDE LEVEL 33 MEQ/L (21-32); CHLORIDE LEVEL 99 MEQ/L (98-107); CREATININE FOR GFR 0.59 MG/DL (0.70-1.30); GLOMERULAR FILTRATION RATE > 60.0 (>49); GLUCOSE, FASTING 112 MG/DL (70-100); POTASSIUM SERUM 3.8 MEQ/L (3.5-5.1); SODIUM LEVEL 138 MEQ/L (136-145)
[2017-10-07] MEDS: THIAMINE 100 MG TAB PEG (08:07)
[2017-10-07] MEDS: ASPIRIN 81 MG CHEW TABLET PEG (08:07)
[2017-10-07] MEDS: METOCLOPRAMIDE HCL LIQUID 10 MG/10 ML UDC GT ×2 (08:07→21:47)
[2017-10-07] MEDS: ENOXAPARIN 40 MG/0.4 ML SYRINGE (J1650) SC (08:07)
[2017-10-07] MEDS: BACTRIM 160MG/800MG DS TAB PO ×2 (08:10→21:48)
[2017-10-07 12:29] LABS: C REACTIVE PROTEIN QUANTITATIV 3.04 MG/DL (0.00-0.30)
[2017-10-07] MEDS ORDERED: SLF 3 ML SYR IV (12:30)
[2017-10-07] MEDS: SLF 3 ML SYR IV ×2 (13:43→21:48)
[2017-10-07] MEDS: FAMOTIDINE 20 MG TAB PEG (17:10)
[2017-10-07 17:26] LABS: MAGNESIUM LEVEL 2.2 MG/DL (1.8-2.4)
[2017-10-08] MEDS: IPRATROPIUM 0.5MG/ALBUTEROL 2.5MG INH SOL UD 3ML (DUONEB)(J7620) NEB ×3 (00:24→08:28)
[2017-10-08 05:38] LABS: HEMATOCRIT 37.2 % (42.0-52.0); HEMOGLOBIN 12.1 g/dl (14.0-18.0); MEAN CORPUSCULAR HEMOGLOBIN 35.3 pg (27.0-33.0); MEAN CORPUSCULAR HGB CONC 32.5 g/dl (32.0-36.5); MEAN CORPUSCULAR VOLUME 108.5 fl (80.0-96.0); PLATELET COUNT, AUTOMATED 216 10^3/uL (150-450); RED BLOOD COUNT 3.43 10^6/uL (4.30-6.10); RED CELL DISTRIBUTION WIDTH 12.7 % (11.5-14.5); WHITE BLOOD COUNT 9.2 10^3/uL (4.0-10.0)
[2017-10-08 05:52] LABS: ANION GAP 3 MEQ/L (8-16); BLOOD UREA NITROGEN 11 MG/DL (7-18); C REACTIVE PROTEIN QUANTITATIV 2.66 MG/DL (0.00-0.30); CALCIUM LEVEL 8.6 MG/DL (8.8-10.2); CARBON DIOXIDE LEVEL 35 MEQ/L (21-32); CHLORIDE LEVEL 101 MEQ/L (98-107); CREATININE FOR GFR 0.75 MG/DL (0.70-1.30); GLOMERULAR FILTRATION RATE > 60.0 (>49); GLUCOSE, FASTING 86 MG/DL (70-100); MAGNESIUM LEVEL 2.3 MG/DL (1.8-2.4); POTASSIUM SERUM 4.2 MEQ/L (3.5-5.1); SODIUM LEVEL 139 MEQ/L (136-145)
[2017-10-08] MEDS: BACTRIM 160MG/800MG DS TAB PO (09:06)
[2017-10-08] MEDS: THIAMINE 100 MG TAB PEG (09:06)
[2017-10-08] MEDS: ASPIRIN 81 MG CHEW TABLET PEG (09:06)
[2017-10-08] MEDS: METOCLOPRAMIDE HCL LIQUID 10 MG/10 ML UDC GT (09:06)
[2017-10-08] MEDS: ENOXAPARIN 40 MG/0.4 ML SYRINGE (J1650) SC (09:07)
== END 2017-10-08 12:18 | disposition home or self-care (01) | DRG 163 ==
LOC: M ICU 09-30 11:05 → M PCU 10-04 23:36 → M MSPAV 09-26 00:40 → M ED 17:33 → M ED INP 21:57
PROC: 0BH17EZ Insertion of Endotracheal Airway into Trachea, Via Natural or Artificial Opening (ICD-10-PCS; 2017-09-29)
PROC: 0BCL8ZZ Extirpation of Matter from Left Lung, Via Natural or Artificial Opening Endoscopic (ICD-10-PCS; principal; 2017-09-30)
PROC: 0B9M8ZZ Drainage of Bilateral Lungs, Via Natural or Artificial Opening Endoscopic (ICD-10-PCS; 2017-09-30)
PROC: 06HM33Z Insertion of Infusion Device into Right Femoral Vein, Percutaneous Approach (ICD-10-PCS; 2017-09-30)
PROC: 0B9M8ZZ Drainage of Bilateral Lungs, Via Natural or Artificial Opening Endoscopic (ICD-10-PCS; 2017-10-01)
PROC: 0BH17EZ Insertion of Endotracheal Airway into Trachea, Via Natural or Artificial Opening (ICD-10-PCS; 2017-10-01)
PROC: 5A1945Z Respiratory Ventilation, 24-96 Consecutive Hours (ICD-10-PCS; 2017-10-01)
DX: J15.212 Pneumonia due to Methicillin resistant Staphylococcus aureus (principal); J96.21 Acute and chronic respiratory failure with hypoxia; J96.22 Acute and chronic respiratory failure with hypercapnia; J47.0 Bronchiectasis with acute lower respiratory infection; J47.1 Bronchiectasis with (acute) exacerbation; E87.2 Acidosis; T17.920A Food in respiratory tract, part unspecified causing asphyxiation, initial encounter; J69.0 Pneumonitis due to inhalation of food and vomit; D72.829 Elevated white blood cell count, unspecified; Z87.891 Personal history of nicotine dependence; K21.9 Gastro-esophageal reflux disease without esophagitis; Z93.1 Gastrostomy status; Z79.82 Long term (current) use of aspirin; Z99.81 Dependence on supplemental oxygen; Z79.52 Long term (current) use of systemic steroids; Z85.818 Personal history of malignant neoplasm of other sites of lip, oral cavity, and pharynx; Z79.899 Other long term (current) drug therapy; Z88.8 Allergy status to other drugs, medicaments and biological substances; Z92.3 Personal history of irradiation; Y92.239 Unspecified place in hospital as the place of occurrence of the external cause

== ENCOUNTER 2017-11-30 10:38 | Inpatient (IN) | payer MEDICARE, OTHER ==
[2017-11-30] MEDS: IPRATROPIUM 0.5MG/ALBUTEROL 2.5MG INH SOL UD 3ML (DUONEB)(J7620) NEB ×3 (11:26→19:37)
[2017-11-30] MEDS: ALBUTEROL SULFATE 2.5 MG/0.5 ML INH NEB SOLN INH (11:26)
[2017-11-30] MEDS ORDERED: ACETAMINOPHEN 325 MG TAB PO (11:30)
[2017-11-30] MEDS ORDERED: methylPREDNISolone INJ 40 MG/1 ML VIAL (J2920) IV (11:30)
[2017-11-30 11:42] LABS: ABG BASE EXCESS 8.7 (-2.0-2.0); ABG O2 SATURATION 92.5 % (95.0-99.0); ABG PARTIAL PRESSURE O2 66.1 mmHg (75.0-100.0); ABG STANDARD HCO3 32.3 MEQ/L (22.0-26.0); ABG TOTAL CO2 37.9 MEQ/L (23.0-31.0); ABG pH (ARTERIAL) 7.388 UNITS (7.350-7.450)
[2017-11-30 11:45] LABS: ABG PARTIAL PRESSURE CO2 61.2 mmHg (35.0-45.0)
[2017-11-30] MEDS: methylPREDNISolone INJ 125 MG/2 ML VIAL (J2930) IV ×2 (11:45→20:40)
[2017-11-30] MEDS: NS 1,000 ML IV (11:45)
[2017-11-30 11:51] LABS: HEMATOCRIT 42.3 % (42.0-52.0); HEMOGLOBIN 13.8 g/dl (13.5-17.5); MEAN CORPUSCULAR HEMOGLOBIN 34.8 pg (27.0-33.0); MEAN CORPUSCULAR HGB CONC 32.6 g/dl (32.0-36.5); MEAN CORPUSCULAR VOLUME 106.8 fl (80.0-96.0); PLATELET COUNT, AUTOMATED 213 10^3/uL (150-450); RED BLOOD COUNT 3.96 10^6/uL (4.30-6.10); RED CELL DISTRIBUTION WIDTH 13.2 % (11.5-14.5); WHITE BLOOD COUNT 9.1 10^3/uL (4.0-10.0)
[2017-11-30 11:55] LABS: ADD MANUAL DIFFER YES; DIFF SLIDE NUMBER 251; POSITIVE MORPH POS FLAG
[2017-11-30] MEDS: ACETAMINOPHEN 325 MG TAB PEG (12:00)
[2017-11-30 12:16] LABS: ANION GAP 5 MEQ/L (8-16); BLOOD UREA NITROGEN 19 MG/DL (7-18); CALCIUM LEVEL 8.8 MG/DL (8.8-10.2); CARBON DIOXIDE LEVEL 34 MEQ/L (21-32); CHLORIDE LEVEL 99 MEQ/L (98-107); CREATININE FOR GFR 0.67 MG/DL (0.70-1.30); GLOMERULAR FILTRATION RATE > 60.0 (>49); GLUCOSE, FASTING 119 MG/DL (70-100); POTASSIUM SERUM 4.6 MEQ/L (3.5-5.1); SODIUM LEVEL 138 MEQ/L (136-145)
[2017-11-30 12:18] LABS: ATYPICAL LYMPH 3 % (0-5); BANDS 1 % (< 11); BASOPHILS 1 % (0-4); EOSINOPHILS 1 % (0-5); LYMPHOCYTES 8 % (16-52); MONOCYTES 15 % (0-8); NEUTROPHILS 71 % (35-75)
[2017-11-30 12:20] LABS: ALBUMIN/GLOBULIN RATIO 0.71 (1.00-1.93); ALKALINE PHOSPHATASE 156 U/L (45-117); ALT/SGPT 49 U/L (12-78); AST/SGOT 33 U/L (7-37); BILIRUBIN,DIRECT 0.1 MG/DL (0.0-0.2); BILIRUBIN,TOTAL 0.4 MG/DL (0.2-1.0); PLATELET ESTIMATE NORMAL (NORMAL); TOTAL PROTEIN 7.2 GM/DL (6.4-8.2)
[2017-11-30 12:21] LABS: STOMATOCYTES 2+
[2017-11-30 12:29] LABS: LACTIC ACID SEPSIS PROTOCOL 0.9 MMOL/L (0.4-2.0)
[2017-11-30] MEDS: PIPERACILLIN/TAZOBACTAM SOD 3.375 GM in D5W MINI-BAG PLUS 50 ML IV ×2 (12:30→20:39)
[2017-11-30] MEDS ORDERED: IPRATROPIUM 0.5MG/ALBUTEROL 2.5MG INH SOL UD 3ML (DUONEB)(J7620) NEB (13:00)
[2017-11-30] MEDS ORDERED: ACETAMINOPHEN TAB 650MG DOSE (2X325MG) PEG (13:00)
[2017-11-30] MEDS ORDERED: ONDANSETRON 4MG/2ML VIAL (J2405) IV (13:00)
[2017-11-30 13:07] LABS: TROPONIN I 0.03 NG/ML (< 0.10)
[2017-11-30 13:08] LABS: CK-MB VALUE MASS 1.9 NG/ML (<3.6); CPK CREATINE PHOSPHOKINASE 45 U/L (39-308); MB/CK RELATIVE INDEX 4.22 (< OR =4)
[2017-11-30] MEDS: ASPIRIN 81 MG ENTERIC TAB PEG (13:47)
[2017-11-30] MEDS: FAMOTIDINE 20 MG TAB PEG (13:47)
[2017-11-30] MEDS: THIAMINE 100 MG TAB PEG (13:47)
[2017-11-30] MEDS: MULTIVITAMINS/MINERALS THERAP 1 TAB PEG (13:47)
[2017-11-30] MEDS: ENOXAPARIN 40 MG/0.4 ML SYRINGE (J1650) SC (13:47)
[2017-12-01] MEDS: IPRATROPIUM 0.5MG/ALBUTEROL 2.5MG INH SOL UD 3ML (DUONEB)(J7620) NEB ×7 (00:11→23:38)
[2017-12-01] MEDS: METOPROLOL TART 25 MG TABLET PO ×2 (00:31→09:00)
[2017-12-01 01:06] LABS: MAGNESIUM LEVEL 2.6 MG/DL (1.8-2.4)
[2017-12-01] MEDS: methylPREDNISolone INJ 125 MG/2 ML VIAL (J2930) IV (04:10)
[2017-12-01] MEDS: PIPERACILLIN/TAZOBACTAM SOD 3.375 GM in D5W MINI-BAG PLUS 50 ML IV ×3 (04:11→20:56)
[2017-12-01 05:36] LABS: HEMATOCRIT 39.8 % (42.0-52.0); HEMOGLOBIN 12.9 g/dl (13.5-17.5); MEAN CORPUSCULAR HEMOGLOBIN 34.4 pg (27.0-33.0); MEAN CORPUSCULAR HGB CONC 32.4 g/dl (32.0-36.5); MEAN CORPUSCULAR VOLUME 106.1 fl (80.0-96.0); PLATELET COUNT, AUTOMATED 194 10^3/uL (150-450); RED BLOOD COUNT 3.75 10^6/uL (4.30-6.10); WHITE BLOOD COUNT 9.3 10^3/uL (4.0-10.0)
[2017-12-01 05:51] LABS: ALBUMIN 2.5 GM/DL (3.2-5.2); ALBUMIN/GLOBULIN RATIO 0.57 (1.00-1.93); ALKALINE PHOSPHATASE 128 U/L (45-117); ALT/SGPT 37 U/L (12-78); ANION GAP 4 MEQ/L (8-16); AST/SGOT 22 U/L (7-37); BILIRUBIN,TOTAL 0.3 MG/DL (0.2-1.0); BLOOD UREA NITROGEN 18 MG/DL (7-18); CALCIUM LEVEL 8.6 MG/DL (8.8-10.2); CARBON DIOXIDE LEVEL 33 MEQ/L (21-32); CHLORIDE LEVEL 102 MEQ/L (98-107); CREATININE FOR GFR 0.62 MG/DL (0.70-1.30); GLOMERULAR FILTRATION RATE > 60.0 (>49); GLUCOSE, FASTING 141 MG/DL (70-100); MAGNESIUM LEVEL 2.4 MG/DL (1.8-2.4); POTASSIUM SERUM 4.1 MEQ/L (3.5-5.1); SODIUM LEVEL 139 MEQ/L (136-145); TOTAL PROTEIN 6.9 GM/DL (6.4-8.2)
[2017-12-01] MEDS: ASPIRIN 81 MG ENTERIC TAB PEG (08:59)
[2017-12-01] MEDS: THIAMINE 100 MG TAB PEG (09:00)
[2017-12-01] MEDS: MULTIVITAMINS/MINERALS THERAP 1 TAB PEG (09:00)
[2017-12-01] MEDS: ENOXAPARIN 40 MG/0.4 ML SYRINGE (J1650) SC (09:00)
[2017-12-01] MEDS: FAMOTIDINE 20 MG TAB PEG (09:00)
[2017-12-01] MEDS ORDERED: PILL CRUSHER/CUTTER 1 EACH XX (09:15)
[2017-12-01] MEDS: methylPREDNISolone INJ 40 MG/1 ML VIAL (J2920) IV (16:25)
[2017-12-02] MEDS: IPRATROPIUM 0.5MG/ALBUTEROL 2.5MG INH SOL UD 3ML (DUONEB)(J7620) NEB ×5 (03:52→21:24)
[2017-12-02] MEDS: methylPREDNISolone INJ 40 MG/1 ML VIAL (J2920) IV (04:12)
[2017-12-02] MEDS: PIPERACILLIN/TAZOBACTAM SOD 3.375 GM in D5W MINI-BAG PLUS 50 ML IV (04:12)
[2017-12-02 06:01] LABS: HEMATOCRIT 39.7 % (42.0-52.0); HEMOGLOBIN 12.7 g/dl (13.5-17.5); MEAN CORPUSCULAR HEMOGLOBIN 34.1 pg (27.0-33.0); MEAN CORPUSCULAR VOLUME 106.7 fl (80.0-96.0); PLATELET COUNT, AUTOMATED 212 10^3/uL (150-450); RED BLOOD COUNT 3.72 10^6/uL (4.30-6.10); WHITE BLOOD COUNT 21.9 10^3/uL (4.0-10.0)
[2017-12-02 06:28] LABS: ALBUMIN 2.5 GM/DL (3.2-5.2); ALBUMIN/GLOBULIN RATIO 0.57 (1.00-1.93); ALKALINE PHOSPHATASE 129 U/L (45-117); ALT/SGPT 41 U/L (12-78); ANION GAP 4 MEQ/L (8-16); AST/SGOT 25 U/L (7-37); BILIRUBIN,TOTAL 0.2 MG/DL (0.2-1.0); BLOOD UREA NITROGEN 27 MG/DL (7-18); CALCIUM LEVEL 8.6 MG/DL (8.8-10.2); CARBON DIOXIDE LEVEL 35 MEQ/L (21-32); CHLORIDE LEVEL 102 MEQ/L (98-107); CREATININE FOR GFR 0.67 MG/DL (0.70-1.30); GLOMERULAR FILTRATION RATE > 60.0 (>49); GLUCOSE, FASTING 126 MG/DL (70-100); MAGNESIUM LEVEL 2.5 MG/DL (1.8-2.4); POTASSIUM SERUM 4.5 MEQ/L (3.5-5.1); SODIUM LEVEL 141 MEQ/L (136-145); TOTAL PROTEIN 6.9 GM/DL (6.4-8.2)
[2017-12-02] MEDS: ENOXAPARIN 40 MG/0.4 ML SYRINGE (J1650) SC (09:04)
[2017-12-02] MEDS: ASPIRIN 81 MG ENTERIC TAB PEG (09:05)
[2017-12-02] MEDS: THIAMINE 100 MG TAB PEG (09:05)
[2017-12-02] MEDS: predniSONE 20 MG TAB PO (09:05)
[2017-12-02] MEDS: LevoFLOXacin 500 MG TABLET PO (09:05)
[2017-12-02] MEDS: FAMOTIDINE 20 MG TAB PEG (09:05)
[2017-12-02] MEDS: MULTIVITAMINS/MINERALS THERAP 1 TAB PEG (09:05)
[2017-12-03 06:11] LABS: HEMATOCRIT 40.7 % (42.0-52.0); HEMOGLOBIN 13.1 g/dl (13.5-17.5); MEAN CORPUSCULAR HEMOGLOBIN 34.4 pg (27.0-33.0); MEAN CORPUSCULAR HGB CONC 32.2 g/dl (32.0-36.5); MEAN CORPUSCULAR VOLUME 106.8 fl (80.0-96.0); PLATELET COUNT, AUTOMATED 215 10^3/uL (150-450); RED BLOOD COUNT 3.81 10^6/uL (4.30-6.10); RED CELL DISTRIBUTION WIDTH 13.2 % (11.5-14.5); WHITE BLOOD COUNT 17.6 10^3/uL (4.0-10.0)
[2017-12-03 06:41] LABS: ALBUMIN 2.4 GM/DL (3.2-5.2); ALBUMIN/GLOBULIN RATIO 0.57 (1.00-1.93); ALKALINE PHOSPHATASE 133 U/L (45-117); ALT/SGPT 53 U/L (12-78); ANION GAP 4 MEQ/L (8-16); AST/SGOT 30 U/L (7-37); BILIRUBIN,TOTAL 0.1 MG/DL (0.2-1.0); BLOOD UREA NITROGEN 26 MG/DL (7-18); CALCIUM LEVEL 8.7 MG/DL (8.8-10.2); CARBON DIOXIDE LEVEL 35 MEQ/L (21-32); CHLORIDE LEVEL 104 MEQ/L (98-107); CREATININE FOR GFR 0.63 MG/DL (0.70-1.30); GLOMERULAR FILTRATION RATE > 60.0 (>49); GLUCOSE, FASTING 83 MG/DL (70-100); MAGNESIUM LEVEL 2.6 MG/DL (1.8-2.4); POTASSIUM SERUM 4.1 MEQ/L (3.5-5.1); SODIUM LEVEL 143 MEQ/L (136-145); TOTAL PROTEIN 6.6 GM/DL (6.4-8.2)
[2017-12-03] MEDS: LevoFLOXacin 500 MG TABLET PO (06:47)
[2017-12-03] MEDS: IPRATROPIUM 0.5MG/ALBUTEROL 2.5MG INH SOL UD 3ML (DUONEB)(J7620) NEB ×3 (07:28→11:11)
[2017-12-03] MEDS: ASPIRIN 81 MG ENTERIC TAB PEG (09:58)
[2017-12-03] MEDS: THIAMINE 100 MG TAB PEG (09:58)
[2017-12-03] MEDS: FAMOTIDINE 20 MG TAB PEG (09:58)
[2017-12-03] MEDS: MULTIVITAMINS/MINERALS THERAP 1 TAB PEG (09:58)
[2017-12-03] MEDS: predniSONE 20 MG TAB PO (09:58)
[2017-12-03] MEDS: ENOXAPARIN 40 MG/0.4 ML SYRINGE (J1650) SC (09:59)
== END 2017-12-03 14:59 | disposition home or self-care (01) | DRG 193 ==
LOC: M ED 10:38 → M ED INP 12:55 → M PCU 22:51
DX: J18.9 Pneumonia, unspecified organism (principal); J96.21 Acute and chronic respiratory failure with hypoxia; J44.1 Chronic obstructive pulmonary disease with (acute) exacerbation; D72.829 Elevated white blood cell count, unspecified; K21.9 Gastro-esophageal reflux disease without esophagitis; Z79.82 Long term (current) use of aspirin; Z79.899 Other long term (current) drug therapy; Z88.8 Allergy status to other drugs, medicaments and biological substances; Z87.891 Personal history of nicotine dependence; Z93.1 Gastrostomy status; Z85.818 Personal history of malignant neoplasm of other sites of lip, oral cavity, and pharynx